=== PATIENT | male | born 1935 | race Caucasian/White ===

== ENCOUNTER 2017-04-06 13:36 | Inpatient (IN) | payer BC, MEDICARE ==
[~2017-04-06] VITALS: Ht 175.3 cm; Wt 106.0 kg
[~2017-04-06 13:36] MED LIST: AMLO10 PO; ASPI81TA82 PO; BUPR150T3 PO; CETI10 PO; DOXA1 PO; FISH100020 PO; HYDR50TA15 PO; LACT20SO4 PO; LOSA100T PO; METF500 PO; NEUR600T PO; OMNI1SUS RIGHT EYE; PERC5TAB12 PO; PROP20TA24 PO; PROZ20CA11 PO; ROSU5 PO; SAW450CA2 PO; SODI1 PO; TAB-TAB PO; TAMS.4 PO; ULTR50TA PO; XANA1TAB6 PO; ZOLP10TA3 PO; ZOVI800T13 PO; [UNRECOGNIZED DRUG - CODE] EACH EYE
[2017-04-06 13:58] VITALS: BP 189/80; PULSE 63; RESP 24; TEMP 98.8; O2SAT 90
[2017-04-06 14:15] VITALS: O2SAT 96
[2017-04-06] MEDS ORDERED: RESP: ALBUTEROL 2.5 MG/IPRATROPIUM 0.5 MG NEB (SCH) INH ONE (14:15)
--- NOTE | 2017-04-06 14:27 | PD ---
HPI Chief Complaint: Respiratory Symptoms Time Seen by Provider: 13:47 Travel History International Travel<30 days: No Contact w/Intl Traveler<30days: No Traveled to known affect area: No History of Present Illness HPI 81-year-old male with ISIDORO on CPAP at night, diabetes, status post Jo Ann-en-Y gastric bypass presents to the emergency department complaining of weakness, increased shortness of breath and chest pain for 2-3 weeks. States he is also had a dry cough. Patient states currently he does not have chest pain but when he does it is across the chest and does not radiate. Patient denies nausea or vomiting. states that he has been "sick" for 3 weeks and has had multiple rounds of antibiotics without improvement. States that he was on Tamiflu as well for the flu and his last dose was 2 days ago. Patient admits to orthopnea for approximately 1 week and increased edema to his upper extremities. Says he follows a sharepoint application developer every 6 months for a "checkup". Patient adamantly denies any cardiac history or COPD. Patient does smoke cigars "occasionally". PFSH Past Medical History Arthritis: No Asthma: Yes Autoimmune Disease: No Anxiety: Yes Depression: No Heart Rhythm Problems: No Cancer: No Cardiovascular Problems: Yes High Cholesterol: Yes Chemotherapy: No Chest Pain: No Congestive Heart Failure: No COPD: No Cerebrovascular Accident: No Diabetes: Yes Patient Takes Glucophage: No Diminished Hearing: No Endocrine: Yes Gastrointestinal Disorders: Yes (HEMORRHOIDS ) GERD: No Genitourinary: No Hypertension: Yes Immune Disorder: No Kidney Stones: No Musculoskeletal: Yes (CHRONIC BACK PAIN, R FEMUR FRACTURE DUE TO FALL,L WRIST FRACTURE ) Neurologic: Yes (NEUROPATHY, 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 ) Psychiatric: Yes Reproductive: No Respiratory: Yes Immunizations Current: No Migraines: No Radiation Therapy: No Renal Failure: No Seizures: No Sickle Cell Disease: No Sleep Apnea: Yes (CPAP) Thyroid Disease: No Ulcer: Yes Past Surgical History Abdominal Surgery: Yes (GASTRIC BYPASS) AICD: No Arteriovenous Shunt: No Cardiac Surgery: No Ear Surgery: No Endocrine Surgery: No Eye Surgery: Yes (BILATERAL CATARACTS ) Genitourinary Surgery: No Gynecologic Surgery: No Insulin Pump: No Joint Replacement: No Oral Surgery: No Pacemaker: No Thoracic Surgery: No Other Surgery: Yes Social History Alcohol Use: Yes (occassionally ) Tobacco Use: Yes (cigars ) Substance Use: No Allergies-Medications (Allergen,Severity, Reaction): Coded Allergies: *MDRO Multi-Drug Resistant Organism (Verified Adverse Reaction, Unknown, ) 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 Reported Meds & Prescriptions Reported Meds & Active Scripts Active Reported Pantoprazole (Pantoprazole Sodium) 40 Mg Tab 40 Mg PO DAILY Carafate (Sucralfate) 1 Gram Tab 1 Gm PO BID On empty stomach Xanax (Alprazolam) 1 Mg Tab 1 Mg PO BID PRN Ambien (Zolpidem Tartrate) 10 Mg Tab 10 Mg PO HS Levobunolol Opth Drops (Levobunolol HCl) 0.5% Drops 1 Drop EACH EYE BID Pred Forte Opth 1% (Prednisolone Acetate Opth 1%) 1% Susp 1 Drop RIGHT EYE DAILY Travatan Z Opth Drops (Travoprost) 0.004 % Soln 1 Drop LEFT EYE HS Aspirin Adult Low Strength (Aspirin) 81 Mg Tabdr 81 Mg PO DAILY Tramadol (Tramadol HCl) 50 Mg Tab 100 Mg PO Q4-6H PRN Amlodipine (Amlodipine Besylate) 10 Mg Tab 10 Mg PO DAILY Sodium Chloride 1 Gram Tab 1 Gm PO TID Losartan (Losartan Potassium) 100 Mg Tab 100 Mg PO DAILY Lyrica (Pregabalin) 100 Mg Cap 100 Mg PO BID Singulair (Montelukast Sodium) 10 Mg Tab 10 Mg PO DAILY Hydralazine HCl 50 Mg Tablet 100 Mg PO TID Propranolol (Propranolol HCl) 20 Mg Tab 40 Mg PO Q12HR Glimepiride 2 Mg Tab 2 Mg PO DAILY Take with breakfast or first main meal Tamsulosin (Tamsulosin HCl) 0.4 Mg Cap 0.4 Mg PO DAILY Metformin (Metformin HCl) 500 Mg Tab 500 Mg PO DAILY With a meal Crestor (Rosuvastatin Calcium) 5 Mg Tab 5 Mg PO DAILY Cardura (Doxazosin Mesylate) 4 Mg Tab 4 Mg PO DAILY Review of Systems Except as stated in HPI: all other systems reviewed are Neg Physical Exam Narrative GENERAL: WD, WN obese, in mild respiratory distress SKIN: Focused skin assessment warm/dry. HEAD: Atraumatic. Normocephalic. EYES: Pupils equal and round. No scleral icterus. No injection or drainage. ENT: No nasal bleeding or discharge. Mucous membranes pink and moist. NECK: Trachea midline. No JVD. CARDIOVASCULAR: Regular rate and rhythm. No murmur appreciated. RESPIRATORY: No accessory muscle use. diminished lower lobes, wheezing upper lobes GASTROINTESTINAL: Abdomen soft, non-tender, nondistended. Hepatic and splenic margins not palpable. MUSCULOSKELETAL: No obvious deformities. No clubbing. No cyanosis. Bilateral pedal edema, upper extremity edema NEUROLOGICAL: Awake and alert. No obvious cranial nerve deficits. Motor grossly within normal limits. Normal speech. PSYCHIATRIC: Appropriate mood and affect; insight and judgment normal. Data Data Last Documented VS Vital Signs Date Time Temp Pulse Resp B/P (MAP) Pulse Ox O2 Delivery O2 Flow Rate FiO2 04/06/17 15:56 60 24 196/85 (122) 94 2.00 04/06/17 14:15 Nasal Cannula 04/06/17 13:58 98.8 Orders Orders Complete Blood Count With Diff (04/06/17 14:00) Comprehensive Metabolic Panel (04/06/17 14:00) B-Type Natriuretic Peptide (04/06/17 14:00) Act Partial Throm Time (Ptt) (04/06/17 14:00) Prothrombin Time / Inr (Pt) (04/06/17 14:00) Magnesium (Mg) (04/06/17 14:00) Ckmb (Isoenzyme) Profile (04/06/17 14:00) Troponin I (04/06/17 14:00) Urinalysis - C+S If Indicated (04/06/17 14:00) Electrocardiogram (04/06/17 14:00) Chest, Single Ap (04/06/17 14:00) Albuterol-Ipratropium Neb (Duoneb Neb) (04/06/17 14:15) Ct Brain W/O Iv Contrast(Rout) (04/06/17 ) Acetaminophen (Tylenol) (04/06/17 14:30) Acetaminophen (Tylenol) (04/06/17 15:00) Lactic Acid (04/06/17 14:54) Potassium Chloride (Kcl) (04/06/17 15:45) Furosemide Inj (Lasix Inj) (04/06/17 16:15) Admit Order (Ed Use Only) (04/06/17 16:40) Labs Laboratory Tests Test 04/06/17 14:20 04/06/17 15:15 White Blood Count 3.7 TH/MM3 Red Blood Count 4.17 MIL/MM3 Hemoglobin 9.4 GM/DL Hematocrit 28.1 % Mean Corpuscular Volume 67.3 FL Mean Corpuscular Hemoglobin 22.5 PG Mean Corpuscular Hemoglobin Concent 33.4 % Red Cell Distribution Width 19.6 % Platelet Count 325 TH/MM3 Mean Platelet Volume 7.7 FL Neutrophils (%) (Auto) 43.9 % Lymphocytes (%) (Auto) 26.8 % Monocytes (%) (Auto) 8.3 % Eosinophils (%) (Auto) 19.9 % Basophils (%) (Auto) 1.1 % Neutrophils # (Auto) 1.6 TH/MM3 Lymphocytes # (Auto) 1.0 TH/MM3 Monocytes # (Auto) 0.3 TH/MM3 Eosinophils # (Auto) 0.7 TH/MM3 Basophils # (Auto) 0.0 TH/MM3 CBC Comment DIFF FINAL Differential Comment Prothrombin Time 10.8 SEC Prothromb Time International Ratio 1.1 RATIO Activated Partial Thromboplast Time 27.1 SEC Blood Urea Nitrogen 11 MG/DL Creatinine 0.72 MG/DL Random Glucose 83 MG/DL Total Protein 4.9 GM/DL Albumin 1.7 GM/DL Calcium Level 7.0 MG/DL Magnesium Level 1.8 MG/DL Alkaline Phosphatase 76 U/L Aspartate Amino Transf (AST/SGOT) 16 U/L Alanine Aminotransferase (ALT/SGPT) 9 U/L Total Bilirubin 0.3 MG/DL Sodium Level 136 MEQ/L Potassium Level 3.2 MEQ/L Chloride Level 105 MEQ/L Carbon Dioxide Level 22.8 MEQ/L Anion Gap 8 MEQ/L Estimat Glomerular Filtration Rate 105 ML/MIN Protein Corrected Calcium 8.2 MG/DL Total Creatine Kinase 31 U/L Troponin I 0.02 NG/ML B-Type Natriuretic Peptide 262 PG/ML Lactic Acid Level 0.9 mmol/L MDM Medical Decision Making Medical Screen Exam Complete: Yes Emergency Medical Condition: Yes Differential Diagnosis Congestive heart failure, COPD, STEMI, in STEMI, unstable angina Narrative Course 81-year-old male with ISIDORO on CPAP at night, diabetes, status post Jo Ann-en-Y gastric bypass presents to the emergency department complaining of weakness, increased shortness of breath and chest pain for 2-3 weeks. States he is also had a dry cough. Patient states currently he does not have chest pain but when he does it is across the chest and does not radiate. Patient denies nausea or vomiting. states that he has been "sick" for 3 weeks and has had multiple rounds of antibiotics without improvement. States that he was on Tamiflu as well for the flu and his last dose was 2 days ago. Patient admits to orthopnea for approximately 1 week and increased edema to his upper extremities. Says he follows a sharepoint application developer every 6 months for a "checkup". Patient adamantly denies any cardiac history or COPD. Patient does smoke cigars "occasionally". EKG shows Sinus rhythm without STEMI changes. 2 L nasal cannula applied as patient's O2 saturation remained 89-92 while resting. This increased to 96% on oxygen Head CT ordered as patient has been weak for 3 weeks and has been refractory to for multiple treatments by his home health care. Pt administered tylenol for headache. DuoNeb ordered 1 as patient has felt short of breath and he does have a smoking history. Pt says this did not reduce his symptoms. Potassium 30 mEq administered as patient's potassium is 3.2. Last Impressions Chest X-Ray 04/06/17 1400 Signed Impressions: Service Date/Time: Thursday, April 06, 2017 14:29 - CONCLUSION: Bibasilar patchiness consistent with probable pneumonia. Clinical correlation is recommended. Small right pleural effusion and tiny left pleural effusion. Donovan Chen MD Head CT 04/06/17 0000 Signed Impressions: Service Date/Time: Thursday, April 06, 2017 15:18 - CONCLUSION: 1. Mild stable cerebral atrophy. 2. Mild periventricular and subcortical white matter small vessel ischemic changes bilaterally. 3. 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 4. No acute infarct, acute hemorrhage, mass effect or extra-axial fluid collections. Donovan Chen MD Chest x-ray read concern for pneumonia but I am convinced this is a CHF picture. Lasix 80mg administered. His PCP is ALEX Villalobos and Dr. Sullivan. Patient will be admitted for acute congestive heart failure, hypokalemia, hypoxia. Thank you Dr. Arguello for taking this patient. Diagnosis Primary Impression: Congestive heart failure Qualified Codes: I50.9 - Heart failure, unspecified Additional Impression: Hypokalemia Admitting Information Admitting Physician Requests: Admit Condition: Stable Justice,Sammi PA Apr 06, 2017 14:27
[2017-04-06] MEDS ORDERED: ACETAMINOPHEN 325 MG TAB PO ONE ×2 (14:30→15:00)
[2017-04-06] MEDS ORDERED: ASPI81TA16 PO (14:45)
[2017-04-06] MEDS ORDERED: PROP20TA3 PO (14:45)
[2017-04-06] MEDS ORDERED: SODI1TAB PO (14:45)
[2017-04-06] MEDS ORDERED: TRAV0.00 LEFT EYE (14:45)
[2017-04-06] MEDS ORDERED: METF500T PO (14:45)
[2017-04-06] MEDS ORDERED: TAMS0.4C4 PO (14:45)
[2017-04-06] MEDS ORDERED: CARD4TAB2 PO (14:45)
[2017-04-06] MEDS ORDERED: LYRI100C PO (14:45)
[2017-04-06] MEDS ORDERED: MONT10TA2 PO (14:45)
[2017-04-06] MEDS ORDERED: XANA1TAB2 PO (14:45)
[2017-04-06] MEDS ORDERED: AMBI10TA PO (14:45)
[2017-04-06] MEDS ORDERED: HYDR-3800 PO (14:45)
[2017-04-06] MEDS ORDERED: TRAM50TA PO (14:45)
[2017-04-06] MEDS ORDERED: LOSA100T PO (14:45)
[2017-04-06] MEDS ORDERED: LEVO0.5S18 EACH EYE (14:45)
[2017-04-06] MEDS ORDERED: GLIM2TAB PO (14:45)
[2017-04-06] MEDS ORDERED: PRED1SUS RIGHT EYE (14:45)
[2017-04-06] MEDS ORDERED: PANT40TA3 PO (14:45)
[2017-04-06] MEDS ORDERED: AMLO10TA2 PO (14:45)
[2017-04-06] MEDS ORDERED: CARA1TAB6 PO (14:45)
[2017-04-06] MEDS ORDERED: ROSU5 PO (14:45)
--- NOTE | 2017-04-06 14:45 | RADRPT ---
EXAM DATE/TIME: 04/06/2017 14:29 [facility] COMPARISON: CHEST SINGLE AP, October 02, 2015, 16:05. INDICATIONS : Short of breath. MEDICAL HISTORY : Cardiovascular disease. Hypertension. Diabetes. SURGICAL HISTORY : None. ENCOUNTER: Initial ACUITY: 2 weeks PAIN SCORE: 0/10 LOCATION: Bilateral chest FINDINGS: Bibasilar patchiness is noted consistent with probable pneumonia. Clinical correlation is recommended . Small right pleural effusion and tiny left pleural effusion are noted. The heart is stable. CONCLUSION: Bibasilar patchiness consistent with probable pneumonia. Clinical correlation is recommended. Small r ight pleural effusion and tiny left pleural effusion. Donovan Chen MD on April 06, 2017 at 14:41 Board Certified Radiologist. This report was verified electronically.
[2017-04-06 14:51] LABS: AUTOMATED NEUTROPHIL # 1.6 TH/MM3 (1.8-7.7); BASOPHIL % 1.1 % (0.0-2.0); EOSINOPHIL # 0.7 TH/MM3 (0-0.4); EOSINOPHIL % 19.9 % (0.0-4.0); HEMATOCRIT 28.1 % (39.0-51.0); HEMOGLOBIN 9.4 GM/DL (13.0-17.0); LYMPH % 26.8 % (9.0-44.0); MEAN CELL VOLUME 67.3 FL (80.0-100.0); MEAN CORPUSCULAR HEMOGLOBIN 22.5 PG (27.0-34.0); MEAN CORPUSCULAR HGB CONC 33.4 % (32.0-36.0); MEAN PLATELET VOLUME 7.7 FL (7.0-11.0); MONO % 8.3 % (0.0-8.0); MONOCYTE # 0.3 TH/MM3 (0-0.9); NEUT % 43.9 % (16.0-70.0); PLATELET COUNT 325 TH/MM3 (150-450); RED BLOOD COUNT 4.17 MIL/MM3 (4.50-5.90); RED CELL DISTRIBUTION WIDTH 19.6 % (11.6-17.2); WHITE BLOOD COUNT 3.7 TH/MM3 (4.0-11.0)
[2017-04-06 15:14] LABS: INTERNATIONAL NORMALIZED RATIO 1.1 RATIO; PROTHROMBIN TIME - PATIENT 10.8 SEC (9.8-11.6)
[2017-04-06 15:20] LABS: ALBUMIN 1.7 GM/DL (3.4-5.0); BICARBONATE 22.8 MEQ/L (21.0-32.0); CALCIUM-PROTEIN CORRECTED 8.2 MG/DL (8.5-10.1); CREATININE 0.72 MG/DL (0.60-1.30); MAGNESIUM 1.8 MG/DL (1.5-2.5); TOTAL BILIRUBIN ADULT 0.3 MG/DL (0.2-1.0); TOTAL PROTEIN 4.9 GM/DL (6.4-8.2)
[2017-04-06 15:21] LABS: TROPONIN I 0.02 NG/ML (0.02-0.05)
--- NOTE | 2017-04-06 15:28 | RADRPT ---
EXAM DATE/TIME: 04/06/2017 15:18 [facility] COMPARISON: CT BRAIN W/O CONTRAST, October 10, 2015, 16:18. INDICATIONS : Weakness RADIATION DOSE: 46.75 CTDIvol (mGy) MEDICAL HISTORY : Cardiovascular disease. Hypertension. Diabetes SURGICAL HISTORY : None. ENCOUNTER: Initial ACUITY: 2 weeks PAIN SCALE: 3/10 LOCATION: Abdomen TECHNIQUE: Multiple contiguous axial images were obtained of the head. Using automated exposure control and adj ustment of the mA and/or kV according to patient size, radiation dose was kept as low as reasonably a chievable to obtain optimal diagnostic quality images. DICOM format image data is available electro nically for review and comparison. FINDINGS: Mild cerebral atrophy is stable. Mild periventricular and subcortical white matter small vessel ische nelida changes are noted bilaterally. There are scattered old lacunar infarcts within the bilateral basa l ganglia. There is no acute infarct, acute hemorrhage, mass effect or extra-axial fluid collections. The bone windows are unremarkable. CONCLUSION: 1. Mild stable cerebral atrophy. 2. Mild periventricular and subcortical white matter small vessel ischemic changes bilaterally. 3. 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 4. No acute infarct, acute hemorrhage, mass effect or extra-axial fluid collections. Donovan Chen MD on April 06, 2017 at 15:24 Board Certified Radiologist. This report was verified electronically.
[2017-04-06] MEDS ORDERED: POTASSIUM CHLORIDE 10 MEQ CONTROLLED RELEASE TAB PO ONE (15:45)
[2017-04-06 15:56] VITALS: BP 196/85; PULSE 60; RESP 24; O2SAT 94
--- NOTE | 2017-04-06 16:13 | PD ---
Data Data Last Documented VS Vital Signs Date Time Temp Pulse Resp B/P (MAP) Pulse Ox O2 Delivery O2 Flow Rate FiO2 04/06/17 15:56 60 24 196/85 (122) 94 2.00 04/06/17 14:15 Nasal Cannula 04/06/17 13:58 98.8 Orders Orders Complete Blood Count With Diff (04/06/17 14:00) Comprehensive Metabolic Panel (04/06/17 14:00) B-Type Natriuretic Peptide (04/06/17 14:00) Act Partial Throm Time (Ptt) (04/06/17 14:00) Prothrombin Time / Inr (Pt) (04/06/17 14:00) Magnesium (Mg) (04/06/17 14:00) Ckmb (Isoenzyme) Profile (04/06/17 14:00) Troponin I (04/06/17 14:00) Urinalysis - C+S If Indicated (04/06/17 14:00) Electrocardiogram (04/06/17 14:00) Chest, Single Ap (04/06/17 14:00) Albuterol-Ipratropium Neb (Duoneb Neb) (04/06/17 14:15) Ct Brain W/O Iv Contrast(Rout) (04/06/17 ) Acetaminophen (Tylenol) (04/06/17 14:30) Acetaminophen (Tylenol) (04/06/17 15:00) Lactic Acid (04/06/17 14:54) Potassium Chloride (Kcl) (04/06/17 15:45) Furosemide Inj (Lasix Inj) (04/06/17 16:15) Admit Order (Ed Use Only) (04/06/17 16:40) Labs Laboratory Tests Test 04/06/17 14:20 04/06/17 15:15 White Blood Count 3.7 TH/MM3 Red Blood Count 4.17 MIL/MM3 Hemoglobin 9.4 GM/DL Hematocrit 28.1 % Mean Corpuscular Volume 67.3 FL Mean Corpuscular Hemoglobin 22.5 PG Mean Corpuscular Hemoglobin Concent 33.4 % Red Cell Distribution Width 19.6 % Platelet Count 325 TH/MM3 Mean Platelet Volume 7.7 FL Neutrophils (%) (Auto) 43.9 % Lymphocytes (%) (Auto) 26.8 % Monocytes (%) (Auto) 8.3 % Eosinophils (%) (Auto) 19.9 % Basophils (%) (Auto) 1.1 % Neutrophils # (Auto) 1.6 TH/MM3 Lymphocytes # (Auto) 1.0 TH/MM3 Monocytes # (Auto) 0.3 TH/MM3 Eosinophils # (Auto) 0.7 TH/MM3 Basophils # (Auto) 0.0 TH/MM3 CBC Comment DIFF FINAL Differential Comment Prothrombin Time 10.8 SEC Prothromb Time International Ratio 1.1 RATIO Activated Partial Thromboplast Time 27.1 SEC Blood Urea Nitrogen 11 MG/DL Creatinine 0.72 MG/DL Random Glucose 83 MG/DL Total Protein 4.9 GM/DL Albumin 1.7 GM/DL Calcium Level 7.0 MG/DL Magnesium Level 1.8 MG/DL Alkaline Phosphatase 76 U/L Aspartate Amino Transf (AST/SGOT) 16 U/L Alanine Aminotransferase (ALT/SGPT) 9 U/L Total Bilirubin 0.3 MG/DL Sodium Level 136 MEQ/L Potassium Level 3.2 MEQ/L Chloride Level 105 MEQ/L Carbon Dioxide Level 22.8 MEQ/L Anion Gap 8 MEQ/L Estimat Glomerular Filtration Rate 105 ML/MIN Protein Corrected Calcium 8.2 MG/DL Total Creatine Kinase 31 U/L Troponin I 0.02 NG/ML B-Type Natriuretic Peptide 262 PG/ML Lactic Acid Level 0.9 mmol/L MDM Supervised Visit with GUTIERREZ: Yes Narrative Course I, Dr. Watson, have reviewed the advance practice practitioner's documentation and am in agreement, met with the patient face to face, made the diagnosis, and the medical decision making was done by me. *My assessment and Findings: Patient seen and examined by me in addition to Sammi. Agree with her documentation, patient appears to be congestive heart failure, will be admitted to the hospital Diagnosis Primary Impression: Congestive heart failure Qualified Codes: I50.9 - Heart failure, unspecified Additional Impression: Hypokalemia Condition: Stable Donovan Watson MD Apr 06, 2017 16:13
[2017-04-06] MEDS ORDERED: FUROSEMIDE 100 MG/10 ML VIAL IV PUSH ONE (16:15)
[2017-04-06] MEDS ORDERED: GLUCAGON 1 MG/ML VIAL OTHER PRN (16:45)
[2017-04-06] MEDS ORDERED: POTASSIUM CHLORIDE 20 MEQ CONTROLLED RELEASE TAB PO ONE (16:45)
[2017-04-06] MEDS ORDERED: SODIUM CHLORIDE 0.9% FLUSH 10 ML FLUSH IV FLUSH PRN (16:45)
[2017-04-06] MEDS ORDERED: DEXTROSE 50% IN WATER 50 ML VIAL(D50) IV PUSH PRN (16:45)
[2017-04-06] MEDS ORDERED: NALOXONE HCL 0.4 MG/ML AMP IV PUSH PRN (16:45)
[2017-04-06] MEDS: INSULIN ASPART SUPPLEMENTAL SCALE SQ SCH ×2 (17:00→21:00)
[2017-04-06 18:51] LABS: BILIRUBIN, URINE NEG (NEG); BLOOD, URINE NEG (NEG); GLUCOSE,URINE NEG (NEG); KETONE, URINE NEG (NEG); MUCUS URINE FEW /lpf (OCC); NITRITE,URINE NEG (NEG); PH, URINE 5.5 (5.0-8.5); SQUAMOUS EPITHELIAL CELL URINE <1 /hpf (0-5); URINE COLOR YELLOW (YELLW/STRAW); URINE LEUKOCYTE ESTERASE NEG (NEG)
[2017-04-06 19:46] VITALS: PULSE 60
[2017-04-06 20:00] VITALS: BP 178/66; PULSE 62; RESP 20; TEMP 98.3; O2SAT 95
[2017-04-06] MEDS ORDERED: hydrALAZINE HCL 100 MG TAB PO ONE (20:45)
[2017-04-06] MEDS: SODIUM CHLORIDE 0.9% FLUSH 10 ML FLUSH IV FLUSH SCH (21:00)
[2017-04-06] MEDS ORDERED: LATANOPROST 0.005% OPHT SOLN 2.5 ML BTL LEFT EYE SCH (21:00)
[2017-04-06] MEDS ORDERED: ZOLPIDEM TARTRATE 10 MG TAB PO SCH (21:00)
[2017-04-06] MEDS: PREGABALIN 100 MG CAP PO SCH (21:00)
[2017-04-06] MEDS ORDERED: NON-FORMULARY DRUG (Travoprost Opth Drops (Travatan Z Opth Drops) 1 DROP) LEFT EYE SCH (21:00)
[2017-04-06] MEDS: LATANOPROST 0.005% OPHT SOLN 2.5 ML BTL LEFT EYE SCH (21:00)
[2017-04-06 21:50] LABS: TROPONIN I 0.02 NG/ML (0.02-0.05)
[2017-04-06] MEDS: PROPRANOLOL HCL 20 MG TAB PO SCH (22:27)
[2017-04-06] MEDS: SUCRALFATE 1 GM TAB PO SCH (22:28)
[2017-04-06] MEDS: LEVOBUNOLOL HCL 0.5% OPHT SOLN 5 ML BTL EACH EYE SCH (22:29)
[2017-04-06] MEDS: ACETAMINOPHEN 325 MG TAB PO PRN (22:45)
--- NOTE | 2017-04-06 23:32 | HHI.HP ---
HPI Service [facility] Primary Care Physician Unknown Admission Diagnosis new onset CHF, hypokalemia Diagnoses: (1) Bilateral pneumonia (2) Hypokalemia Chief Complaint: shortness of breath Travel History International Travel<30 Days: No Contact w/Intl Traveler <30 Da: No Traveled to Known Affected Are: No History of Present Illness Mr. Montaño is a 81-year-old male diabetes mellitus, ISIDORO on CPAP at night, status post Jo Ann-en-Y gastric bypass who presented to the emergency room complaining of weakness, shortness of breath, cough, and chest pain for 2-3 weeks. His reported to the ED provider that he had been on multiple rounds of antibiotics over the past few weeks without improvement for his recent illness. He was admitted for new onset CHF and hypokalemia. He is seen in his hospital room late at night and is very lethargic during the visit. He answers a few questions but repetitively falls asleep throughout the visit. He denies pain and reports improvement in shortness of breath. He states he follows with Dr. Alvares (cardiology) but cannot tell me what for. He reports using CPAP for ISIDORO at night but does not know what his settings are. He is noted to breath extremely shallow while sleeping during my visit. He reports a symptom duration of 3 weeks. Chest x-ray is personally reviewed by me and with Dr. Wilson (supervising physician) and appears more consistent bilateral pneumonia; possible new onset of mild CHF as well. Review of Systems Except as stated in HPI: all other systems reviewed are Neg Past Family Social History Past Medical History Diabetes Mellitus Neuropathy Subdural Hematoma Hyperlipidemia Hypertension Asthma ISIDORO on home CPAP BPH Chronic Back Pain . Past Surgical History Gastric Bypass Vasectomy Colonoscopy Left wrist repair Circumcision Right ORIF femur Right Knee Repair . Reported Medications Reported Meds & Active Scripts Active Reported Pantoprazole (Pantoprazole Sodium) 40 Mg Tab 40 Mg PO DAILY Carafate (Sucralfate) 1 Gram Tab 1 Gm PO BID On empty stomach Xanax (Alprazolam) 1 Mg Tab 1 Mg PO BID PRN Ambien (Zolpidem Tartrate) 10 Mg Tab 10 Mg PO HS Levobunolol Opth Drops (Levobunolol HCl) 0.5% Drops 1 Drop EACH EYE BID Pred Forte Opth 1% (Prednisolone Acetate Opth 1%) 1% Susp 1 Drop RIGHT EYE DAILY Travatan Z Opth Drops (Travoprost) 0.004 % Soln 1 Drop LEFT EYE HS Aspirin Adult Low Strength (Aspirin) 81 Mg Tabdr 81 Mg PO DAILY Tramadol (Tramadol HCl) 50 Mg Tab 100 Mg PO Q4-6H PRN Amlodipine (Amlodipine Besylate) 10 Mg Tab 10 Mg PO DAILY Sodium Chloride 1 Gram Tab 1 Gm PO TID Losartan (Losartan Potassium) 100 Mg Tab 100 Mg PO DAILY Lyrica (Pregabalin) 100 Mg Cap 100 Mg PO BID Singulair (Montelukast Sodium) 10 Mg Tab 10 Mg PO DAILY Hydralazine HCl 50 Mg Tablet 100 Mg PO TID Propranolol (Propranolol HCl) 20 Mg Tab 40 Mg PO Q12HR Glimepiride 2 Mg Tab 2 Mg PO DAILY Take with breakfast or first main meal Tamsulosin (Tamsulosin HCl) 0.4 Mg Cap 0.4 Mg PO DAILY Metformin (Metformin HCl) 500 Mg Tab 500 Mg PO DAILY With a meal Crestor (Rosuvastatin Calcium) 5 Mg Tab 5 Mg PO DAILY Cardura (Doxazosin Mesylate) 4 Mg Tab 4 Mg PO DAILY . 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 Social History unable to obtain due to patient lethargy . Physical Exam Vital Signs Vital Signs Date Time Temp Pulse Resp B/P (MAP) Pulse Ox O2 Delivery O2 Flow Rate FiO2 04/06/17 20:00 98.3 62 20 178/66 (103) 95 04/06/17 18:19 (122) Nasal Cannula 2.00 04/06/17 15:56 60 24 196/85 (122) 94 2.00 04/06/17 14:15 96 Nasal Cannula 2.00 04/06/17 14:01 62 24 94 Nasal Cannula 2.00 04/06/17 13:58 98.8 63 24 189/80 (116) 90 Physical Exam GENERAL: Elderly male patient; lethargic with some memory impairment noted. Patient in no apparent distress. INTEGUMENTARY: Warm and dry. HEAD: Normocephalic. EYES: No scleral icterus. No injection or drainage. NECK: Supple, trachea midline. No JVD. CARDIOVASCULAR: Regular rate and rhythm without murmurs, gallops, or rubs. 1+ peripheral edema below the knees. RESPIRATORY: Breath sounds diminished at bilateral bases, few scattered crackles at bases. No accessory muscle use. GASTROINTESTINAL: Abdomen soft, non-tender, nondistended. MUSCULOSKELETAL: No cyanosis, no clubbing. Generalized weakness noted. NEUROLOGICAL: Lethargic. Non-focal. . Laboratory Laboratory Tests Test 04/06/17 14:20 04/06/17 15:15 04/06/17 18:00 04/06/17 20:31 White Blood Count 3.7 Red Blood Count 4.17 Hemoglobin 9.4 Hematocrit 28.1 Mean Corpuscular Volume 67.3 Mean Corpuscular Hemoglobin 22.5 Mean Corpuscular Hemoglobin Concent 33.4 Red Cell Distribution Width 19.6 Platelet Count 325 Mean Platelet Volume 7.7 Neutrophils (%) (Auto) 43.9 Lymphocytes (%) (Auto) 26.8 Monocytes (%) (Auto) 8.3 Eosinophils (%) (Auto) 19.9 Basophils (%) (Auto) 1.1 Neutrophils # (Auto) 1.6 Lymphocytes # (Auto) 1.0 Monocytes # (Auto) 0.3 Eosinophils # (Auto) 0.7 Basophils # (Auto) 0.0 CBC Comment DIFF FINAL Differential Comment Prothrombin Time 10.8 Prothromb Time International Ratio 1.1 Activated Partial Thromboplast Time 27.1 Blood Urea Nitrogen 11 Creatinine 0.72 Random Glucose 83 Total Protein 4.9 Albumin 1.7 Calcium Level 7.0 Magnesium Level 1.8 Alkaline Phosphatase 76 Aspartate Amino Transf (AST/SGOT) 16 Alanine Aminotransferase (ALT/SGPT) 9 Total Bilirubin 0.3 Sodium Level 136 Potassium Level 3.2 Chloride Level 105 Carbon Dioxide Level 22.8 Anion Gap 8 Estimat Glomerular Filtration Rate 105 Protein Corrected Calcium 8.2 Total Creatine Kinase 31 33 Troponin I 0.02 0.02 B-Type Natriuretic Peptide 262 Lactic Acid Level 0.9 Urine Color YELLOW Urine Turbidity CLEAR Urine pH 5.5 Urine Specific Pierson 1.009 Urine Protein 30 Urine Glucose (UA) NEG Urine Ketones NEG Urine Occult Blood NEG Urine Nitrite NEG Urine Bilirubin NEG Urine Urobilinogen LESS THAN 2.0 Urine Leukocyte Esterase NEG Urine RBC 1 Urine WBC 1 Urine Squamous Epithelial Cells <1 Urine Mucus FEW Microscopic Urinalysis Comment CULT NOT INDICATED Result Diagram: 04/06/17 1420 04/06/17 1420 Imaging Last Impressions Chest X-Ray 04/06/17 1400 Signed Impressions: Service Date/Time: Thursday, April 06, 2017 14:29 - CONCLUSION: Bibasilar patchiness consistent with probable pneumonia. Clinical correlation is recommended. Small right pleural effusion and tiny left pleural effusion. Donovan Chen MD Head CT 04/06/17 0000 Signed Impressions: Service Date/Time: Thursday, April 06, 2017 15:18 - CONCLUSION: 1. Mild stable cerebral atrophy. 2. Mild periventricular and subcortical white matter small vessel ischemic changes bilaterally. 3. 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 4. No acute infarct, acute hemorrhage, mass effect or extra-axial fluid collections. Donovan Chen MD . Caprini VTE Risk Assessment Caprini VTE Risk Assessment: Mod/High Risk (score >= 2) Caprini Risk Assessment Model Point Value = 1 Point Value = 2 Point Value = 3 Point Value = 5 Age 41-60 Minor surgery BMI > 25 kg/m2 Swollen legs Varicose veins or History of unexplained or recurrent spontaneous Oral contraceptives or hormone replacement Sepsis (< 1 month) Serious lung disease, including pneumonia (< 1 month) Abnormal pulmonary function Acute myocardial infarction Congestive heart failure (< 1 month) History of inflammatory bowel disease Medical patient at bed rest Age 61-74 Arthroscopic surgery Major open surgery (> 45 min) Laparoscopic surgery (> 45 min) Malignancy Confined to bed (> 72 hours) Immobilizing plaster cast Central venous access Age >= 75 History of VTE Family history of VTE Factor V Leiden Prothrombin [id number] Lupus anticoagulant Anticardiolipin antibodies Elevated serum homocysteine Heparin-induced thrombocytopenia Other congenital or acquired thrombophilia Stroke (< 1 month) Elective arthroplasty Hip, pelvis, or leg fracture Acute spinal cord injury (< 1 month) Prophylaxis Regimen Total Risk Factor Score Risk Level Prophylaxis Regimen 0-1 Low Early ambulation 2 Moderate Order ONE of the following: *Sequential Compression Device (SCD) *Heparin 5000 units SQ BID 3-4 Higher Order ONE of the following medications: *Heparin 5000 units SQ TID *Enoxaparin/Lovenox 40 mg SQ daily (WT < 150 kg, CrCl > 30 mL/min) *Enoxaparin/Lovenox 30 mg SQ daily (WT < 150 kg, CrCl > 10-29 mL/min) *Enoxaparin/Lovenox 30 mg SQ BID (WT < 150 kg, CrCl > 30 mL/min) AND/OR *Sequential Compression Device (SCD) 5 or more Highest Order ONE of the following medications: *Heparin 5000 units SQ TID (Preferred with Epidurals) *Enoxaparin/Lovenox 40 mg SQ daily (WT < 150 kg, CrCl > 30 mL/min) *Enoxaparin/Lovenox 30 mg SQ daily (WT < 150 kg, CrCl > 10-29 mL/min) *Enoxaparin/Lovenox 30 mg SQ BID (WT < 150 kg, CrCl > 30 mL/min) AND *Sequential Compression Device (SCD) Assessment and Plan Problem List: (1) Bilateral pneumonia ICD Code: J18.9 - Pneumonia, unspecified organism Status: Acute (2) Hypokalemia ICD Code: E87.6 - Hypokalemia Status: Acute (3) Congestive heart failure ICD Code: I50.9 - Heart failure, unspecified Status: Acute (4) Atypical chest pain ICD Code: R07.89 - Other chest pain (5) Diabetes mellitus ICD Code: E11.9 - Type 2 diabetes mellitus without complications Status: Chronic Assessment and Plan Mr. Montaño is a 81-year-old male diabetes mellitus, ISIDORO on CPAP at night, status post Jo Ann-en-Y gastric bypass who presented to the emergency room complaining of weakness, shortness of breath, cough, and chest pain for 2-3 weeks. His reported to the ED provider that he had been on multiple rounds of antibiotics over the past few weeks without improvement for his recent illness. He was admitted for new onset CHF and hypokalemia. Review of chest x-ray appears most consistent with bilateral pneumonia with failed outpatient therapy ; possible new onset of mild CHF as well. Bilateral pneumonia with failed outpatient treatment - Antibiotics: IV Zosyn and Vancomycin - Albuterol q6h ATC and q2h PRN sob/wheezing - Consult pulmonology - appreciate assistance Atypical Chest pain - serial EKGs and cardiac enzymes to r/o ACS - continuous cardiac telemetry to monitor for arrhythmias - pain free at the time of my visit - monitor I and Os - Heart healthy diet CHF, possible new onset - small bilateral pleural effusions on CXR, BNP 262 - Diuresed in ED with IV Lasix - Lasix 20 mg IV BID with potassium supplementation - check echocardiogram to assess cardiac structure and function - consult Dr. Alvares if needed Type 2 DM - holding home oral medications for now - Accuchecks AC and HS with low dose NovoLog sliding scale coverage - monitor trends in blood glucose readings and adjust treatment accordingly - hypoglycemia treatment/guidelines ordered Hypokalemia - K+ 3.2 on admission - Potassium replaced; will follow up on am BMP results and will replace further as indicated ISIDORO - CPAP ordered DVT prophylaxis - Lovenox 40 mg subq q24h Discussed Condition With Patient and RN . Problem Qualifiers (1) Congestive heart failure: Qualified Codes: I50.9 - Heart failure, unspecified Hilary Lomax Apr 06, 2017 23:32
[2017-04-06 23:44] VITALS: PULSE 56
[2017-04-07] VITALS (9 sets, daily range): BP systolic 157–197; BP diastolic 63–83; PULSE 56–73; RESP 18–20; TEMP 97.1–98.5; O2SAT 93–97
[2017-04-07] MEDS ORDERED: Vancomycin Consult Pharmacy 1 EA OTHER SCH (03:30)
[2017-04-07 03:44] LABS: AUTOMATED NEUTROPHIL # 1.4 TH/MM3 (1.8-7.7); BASOPHIL # 0.1 TH/MM3 (0-0.2); BASOPHIL % 2.6 % (0.0-2.0); EOSINOPHIL # 0.9 TH/MM3 (0-0.4); EOSINOPHIL % 25.1 % (0.0-4.0); HEMATOCRIT 29.5 % (39.0-51.0); HEMOGLOBIN 9.9 GM/DL (13.0-17.0); LYMPH % 25.4 % (9.0-44.0); LYMPHOCYTE # 0.9 TH/MM3 (1.0-4.8); MEAN CELL VOLUME 67.6 FL (80.0-100.0); MEAN CORPUSCULAR HEMOGLOBIN 22.6 PG (27.0-34.0); MEAN CORPUSCULAR HGB CONC 33.5 % (32.0-36.0); MEAN PLATELET VOLUME 7.2 FL (7.0-11.0); MONOCYTE # 0.3 TH/MM3 (0-0.9); NEUT % 38.9 % (16.0-70.0); PLATELET COUNT 336 TH/MM3 (150-450); RED BLOOD COUNT 4.36 MIL/MM3 (4.50-5.90); RED CELL DISTRIBUTION WIDTH 19.7 % (11.6-17.2); WHITE BLOOD COUNT 3.6 TH/MM3 (4.0-11.0)
[2017-04-07] MEDS ORDERED: RESP: ALBUTEROL 2.5 MG/IPRATROPIUM 0.5 MG NEB (PRN) NEB (03:45)
[2017-04-07 04:14] LABS: TROPONIN I LESS THAN 0.02 NG/ML (0.02-0.05)
[2017-04-07 04:17] LABS: BICARBONATE 29.1 MEQ/L (21.0-32.0); CALCIUM 7.9 MG/DL (8.5-10.1); CREATININE 0.87 MG/DL (0.60-1.30)
[2017-04-07] MEDS ORDERED: VANCOMYCIN INJ 2,000 MG in SODIUM CHLORID 0.9% 500 ML INJ 500 ML IV ONE (04:30)
[2017-04-07] MEDS ORDERED: POTASSIUM CHLORIDE 20 MEQ CONTROLLED RELEASE TAB PO ONE (05:00)
[2017-04-07] MEDS ORDERED: traMADol HCL 50 MG TAB PO PRN (06:15)
[2017-04-07] MEDS ORDERED: ALPRAZolam 1 MG TAB PO PRN (06:15)
[2017-04-07] MEDS: RESP: ALBUTEROL 2.5 MG/IPRATROPIUM 0.5 MG NEB (SCH) NEB ×4 (07:53→20:49)
[2017-04-07] MEDS: INSULIN ASPART SUPPLEMENTAL SCALE SQ SCH ×4 (08:00→21:00)
[2017-04-07] MEDS ORDERED: POTASSIUM CHLORIDE 10 MEQ CAP PO SCH ×2 (09:00→21:00)
[2017-04-07] MEDS ORDERED: FUROSEMIDE 20 MG/2 ML VIAL IV PUSH SCH (09:00)
[2017-04-07] MEDS ORDERED: FUROSEMIDE 40 MG/4 ML VIAL IV PUSH SCH ×2 (09:00→18:00)
[2017-04-07] MEDS ORDERED: NON-FORMULARY DRUG (Rosuvastatin (Crestor) 5 MG) PO SCH (09:00)
[2017-04-07] MEDS: PIPERACIL-TAZO 4.5 GM PREMIX 100 ML IV SCH ×3 (09:52→21:16)
[2017-04-07] MEDS: LEVOBUNOLOL HCL 0.5% OPHT SOLN 5 ML BTL EACH EYE SCH ×2 (09:52→21:24)
[2017-04-07] MEDS: hydrALAZINE HCL 100 MG TAB PO SCH ×3 (09:53→16:18)
[2017-04-07] MEDS: SODIUM CHLORIDE 0.9% FLUSH 10 ML FLUSH IV FLUSH SCH ×2 (09:53→21:17)
[2017-04-07] MEDS: SUCRALFATE 1 GM TAB PO SCH ×2 (09:54→21:15)
[2017-04-07] MEDS: PROPRANOLOL HCL 20 MG TAB PO SCH ×2 (09:54→21:15)
[2017-04-07] MEDS: LOSARTAN 50 MG TAB PO SCH (09:54)
[2017-04-07] MEDS: TAMSULOSIN HCL 0.4 MG CAP PO SCH (09:54)
[2017-04-07] MEDS: DOXAZOSIN MESYLATE 4 MG TAB PO SCH (09:54)
[2017-04-07] MEDS: ASPIRIN EC 81 MG TABEC PO SCH (09:54)
[2017-04-07] MEDS: PREGABALIN 100 MG CAP PO SCH ×2 (09:55→21:14)
[2017-04-07] MEDS: ATORVASTATIN 10 MG TAB PO SCH (09:55)
[2017-04-07] MEDS: prednisoLONE ACETATE 1% OPHT SUSP 5 ML BTL RIGHT EYE SCH (09:56)
[2017-04-07] MEDS: MONTELUKAST SODIUM 10 MG TAB PO SCH (09:56)
[2017-04-07] MEDS: SODIUM CHLORIDE 1 GRAM TAB PO SCH ×3 (09:56→16:18)
[2017-04-07] MEDS: ENOXAPARIN SODIUM 40 MG/0.4 ML SYRINGE SQ SCH (09:56)
[2017-04-07] MEDS: PANTOPRAZOLE SOD 40 MG DELAYED RELEASE TAB PO SCH (09:56)
[2017-04-07] MEDS: ACETAMINOPHEN 325 MG TAB PO PRN (12:59)
--- NOTE | 2017-04-07 13:11 | HHI.PR ---
Subjective Remarks Follow-up heart failure and pneumonia. Improving shortness of breath currently on nasal cannula. Complains of dry cough and intermittent chills. He has anasarca denies history of heart failure. Discussed with nursing Objective Vitals Vital Signs Date Time Temp Pulse Resp B/P (MAP) Pulse Ox O2 Delivery O2 Flow Rate FiO2 04/07/17 12:00 97.8 63 20 164/64 (97) 94 04/07/17 11:50 20 04/07/17 08:00 98.3 73 20 197/75 (115) 93 04/07/17 07:55 Nasal Cannula 3.00 04/07/17 04:40 97.1 64 18 96 169/83 (111) 04/07/17 04:00 62 04/07/17 02:34 Nasal Cannula 3.00 04/07/17 01:20 94 40 04/06/17 23:44 56 04/06/17 20:10 Nasal Cannula 3.00 04/06/17 20:10 Nasal Cannula 3.00 04/06/17 20:00 98.3 62 20 178/66 (103) 95 04/06/17 19:46 60 04/06/17 18:19 (122) Nasal Cannula 2.00 04/06/17 15:56 60 24 196/85 (122) 94 2.00 04/06/17 14:15 96 Nasal Cannula 2.00 04/06/17 14:01 62 24 94 Nasal Cannula 2.00 04/06/17 13:58 98.8 63 24 189/80 (116) 90 I/O 04/06/17 04/06/17 04/06/17 04/07/17 04/07/17 04/07/17 07:00 15:00 23:00 07:00 15:00 23:00 Intake Total 750 ml 100 ml Output Total 600 ml Balance 150 ml 100 ml Intake Oral 750 ml IV Total 100 ml Output Urine Total 600 ml # Voids 3 # Bowel Movements 0 Result Diagram: 04/07/17 0328 04/07/17 0328 Imaging Last Impressions Chest X-Ray 04/06/17 1400 Signed Impressions: Service Date/Time: Thursday, April 06, 2017 14:29 - CONCLUSION: Bibasilar patchiness consistent with probable pneumonia. Clinical correlation is recommended. Small right pleural effusion and tiny left pleural effusion. Donovan Chen MD Head CT 04/06/17 0000 Signed Impressions: Service Date/Time: Thursday, April 06, 2017 15:18 - CONCLUSION: 1. Mild stable cerebral atrophy. 2. Mild periventricular and subcortical white matter small vessel ischemic changes bilaterally. 3. 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 4. No acute infarct, acute hemorrhage, mass effect or extra-axial fluid collections. Donovan Chen MD Objective Remarks GENERAL: Well-developed, well-nourished in no distress INTEGUMENTARY: Warm and dry. NECK: Supple, trachea midline. Has JVD. CARDIOVASCULAR: Regular rate and rhythm without murmurs, gallops, or rubs. RESPIRATORY: Breath sounds diminished at bilateral basesno accessory muscle use. GASTROINTESTINAL: Abdomen soft, non-tender, nondistended. MUSCULOSKELETAL: No cyanosis, no clubbing. Generalized weakness noted. Anasarca NEUROLOGICAL: Alert and oriented. Non-focal. Procedures none A/P Problem List: (1) Bilateral pneumonia ICD Code: J18.9 - Pneumonia, unspecified organism Status: Acute (2) Hypokalemia ICD Code: E87.6 - Hypokalemia Status: Acute (3) Congestive heart failure ICD Code: I50.9 - Heart failure, unspecified Status: Acute (4) Atypical chest pain ICD Code: R07.89 - Other chest pain (5) Diabetes mellitus ICD Code: E11.9 - Type 2 diabetes mellitus without complications Status: Chronic Assessment and Plan Mr. Montaño is a 81-year-old male diabetes mellitus, ISIDORO on CPAP at night, status post Jo Ann-en-Y gastric bypass who presented to the emergency room complaining of weakness, shortness of breath, cough, and chest pain for 2-3 weeks. His reported to the ED provider that he had been on multiple rounds of antibiotics over the past few weeks without improvement for his recent illness. He was admitted for new onset CHF and hypokalemia. Review of chest x-ray appears most consistent with bilateral pneumonia with failed outpatient therapy ; possible new onset of mild CHF as well. Bilateral pneumonia with failed outpatient treatment. Each sepsis criteria. Check pro-calcitonin in light of leukopenia this might be viral - Antibiotics: IV Zosyn and Vancomycin - Albuterol q6h ATC and q2h PRN sob/wheezing - Consult pulmonology - appreciate assistance Atypical Chest pain - Patient ruled out for MD with cardiac enzymes - continuous cardiac telemetry to monitor for arrhythmias - pain free at the time of my visit - monitor I and Os - Heart healthy diet CHF, new onset with anasarca - small bilateral pleural effusions on CXR, BNP 262 - Diuresed in ED with IV Lasix -Increase Lasix to 40 mg IV BID with potassium supplementation - check echocardiogram to assess cardiac structure and function - consult Dr. Alvares if needed Type 2 DM - holding home oral medications for now - Accuchecks AC and HS with low dose NovoLog sliding scale coverage - monitor trends in blood glucose readings and adjust treatment accordingly - hypoglycemia treatment/guidelines ordered Hypokalemia - K+ 3.2 on admission - Potassium replaced; will follow up on am BMP results and will replace further as indicated ISIDORO - CPAP ordered DVT prophylaxis - Lovenox 40 mg subq q24h Problem Qualifiers (1) Congestive heart failure: Qualified Codes: I50.9 - Heart failure, unspecified Rudolph Beasley MD Apr 07, 2017 13:11
--- NOTE | 2017-04-07 18:08 | ECHRPT ---
Indication: CHF CONCLUSIONS Normal left ventricular size. Wall thickness is measured at the upper limits of normal. The left ventricular systolic function is low normal with an estimated ejection fraction in the rang e of 50- 55%. There is trace tricuspid valve regurgitation. The estimated pulmonary arterial pressure is 17 mmHg. Trivial pulmonary valve regurgitation. There is a trivial pericardial effusion present. BP: 169 / 83 HR: 64 Rhythm: MEASUREMENTS (Male / Female) Normal Values Technical Quality: 2D ECHO LV Diastolic Diameter PLAX 5.0 cm 4.2 - 5.9 / 3.9 - 5.3 cm LV Systolic Diameter PLAX 3.8 cm IVS Diastolic Thickness 1.3 cm 0.6 - 1.0 / 0.6 - 0.9 cm LVPW Diastolic Thickness 0.9 cm 0.6 - 1.0 / 0.6 - 0.9 cm LV Relative Wall Thickness 0.4 RV Internal Dim ED PLAX 2.2 cm LA Systolic Diameter LX 3.8 cm 3.0 - 4.0 / 2.7 - 3.8 cm M-MODE Aortic Root Diameter MM 3.4 cm AV Cusp Separation MM 2.1 cm DOPPLER Mitral E Point Velocity 69.1 cm/s Mitral A Point Velocity 92.3 cm/s Mitral E to A Ratio 0.7 TR Peak Velocity 132.0 cm/s TR Peak Gradient 7.0 mmHg FINDINGS LEFT VENTRICLE Normal left ventricular size. Wall thickness is measured at the upper limits of normal. The left ventricular systolic function is low normal with an estimated ejection fraction in the rang e of 50- 55%. RIGHT VENTRICLE Normal right ventricular size and systolic function. LEFT ATRIUM The left atrial size is normal. RIGHT ATRIUM The right atrial size is normal. ATRIAL SEPTUM Normal atrial septal thickness without atrial level shunting by limited color doppler interrogation. AORTA The aortic root and proximal ascending aorta are normal in size on limited imaging. MITRAL VALVE Structurally normal mitral valve. No mitral valve stenosis or regurgitation. AORTIC VALVE Trileaflet aortic valve. No aortic valve stenosis or regurgitation. TRICUSPID VALVE There is trace tricuspid valve regurgitation. The estimated pulmonary arterial pressure is 17 mmHg. PULMONARY VALVE Trivial pulmonary valve regurgitation. VESSELS The inferior vena cava is normal in size. PERICARDIUM There is a trivial pericardial effusion present. Filiberto Ma MD, FACC (Electronically Signed) Final Date:07 April 2017 18:07
--- NOTE | 2017-04-07 18:16 | PD.CONS ---
History of Present Illness Service Pulmonology Consult Requested By Reason for Consult Pneumonia Primary Care Physician Unknown Diagnoses: History of Present Illness The patient is a pleasant 81-year-old gentleman who came to the hospital because of shortness of breath and coughing. He was started on Zosyn and vancomycin after he was suspected to have pneumonia. Also he was diagnosed with congestive heart failure and is currently on diuretics. Today he is feeling better. Denies any significant coughing or chest pain or shortness of breath. He is wondering whether he can go home in a day or 2. Past medical history, social history, allergies, medications, family history all reviewed in details. 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 Physical Exam Vital Signs Vital Signs Date Time Temp Pulse Resp B/P (MAP) Pulse Ox O2 Delivery O2 Flow Rate FiO2 04/07/17 16:00 67 04/07/17 15:10 94 Nasal Cannula 3.00 04/07/17 13:44 18 04/07/17 12:00 64 04/07/17 12:00 97.8 63 20 164/64 (97) 94 04/07/17 11:50 20 04/07/17 08:00 98.3 73 20 197/75 (115) 93 04/07/17 08:00 68 04/07/17 07:55 Nasal Cannula 3.00 04/07/17 04:40 97.1 64 18 96 169/83 (111) 04/07/17 04:00 62 04/07/17 02:34 Nasal Cannula 3.00 04/07/17 01:20 94 40 04/06/17 23:44 56 04/06/17 20:10 Nasal Cannula 3.00 04/06/17 20:10 Nasal Cannula 3.00 04/06/17 20:00 98.3 62 20 178/66 (103) 95 04/06/17 19:46 60 04/06/17 18:19 (122) Nasal Cannula 2.00 Physical Exam Physical exam: General appearance: no acute distress Head and neck examination: atraumatic normocephalic Neck: supple trachea midline Lungs: Mild bilateral carotid Heart: normal S1-S2 Abdomen: soft nontender positive bowel sounds Extremities: Positive for significant edema no cyanosis Neurological examination: nonfocal moves all extremities awake oriented Skin: no rashes seen Laboratory Laboratory Tests Test 04/06/17 20:31 04/07/17 03:20 04/07/17 03:28 04/07/17 06:44 Total Creatine Kinase 33 20 Troponin I 0.02 LESS THAN 0.02 Magnesium Level 1.9 White Blood Count 3.6 Red Blood Count 4.36 Hemoglobin 9.9 Hematocrit 29.5 Mean Corpuscular Volume 67.6 Mean Corpuscular Hemoglobin 22.6 Mean Corpuscular Hemoglobin Concent 33.5 Red Cell Distribution Width 19.7 Platelet Count 336 Mean Platelet Volume 7.2 Neutrophils (%) (Auto) 38.9 Lymphocytes (%) (Auto) 25.4 Monocytes (%) (Auto) 8.0 Eosinophils (%) (Auto) 25.1 Basophils (%) (Auto) 2.6 Neutrophils # (Auto) 1.4 Lymphocytes # (Auto) 0.9 Monocytes # (Auto) 0.3 Eosinophils # (Auto) 0.9 Basophils # (Auto) 0.1 CBC Comment DIFF FINAL Differential Comment Blood Urea Nitrogen 11 Creatinine 0.87 Random Glucose 61 Calcium Level 7.9 Sodium Level 136 Potassium Level 3.4 Chloride Level 102 Carbon Dioxide Level 29.1 Anion Gap 5 Estimat Glomerular Filtration Rate 85 Blood Gas Puncture Site RT RADIAL Blood Gas Patient Temperature 98.6 Blood Gas HCO3 27 Blood Gas Base Excess 2.8 Blood Gas Oxygen Saturation 93 Arterial Blood pH 7.44 Arterial Blood Partial Pressure CO2 40 Arterial Blood Partial Pressure O2 84 Arterial Blood Oxygen Content 12.6 Arterial Blood Carboxyhemoglobin 1.1 Arterial Blood Methemoglobin 1.4 Blood Gas Hemoglobin 9.6 Oxygen Delivery Device NASAL CANNULA Blood Gas Liter Flow 3 Result Diagram: 04/07/17 0328 04/07/17 0328 Assessment and Plan Assessment and Plan Pneumonia multilobar CHF with exacerbation hypoxemia Obstructive sleep apnea deconditioning The patient is already improving and doing better. I agree with the choice of antibiotics with Zosyn and vancomycin. I would recommend to check a pro calcitonin level. No I recommend to follow-up on the cultures. Patient will need to be optimized from a cardiac status. Number he will need to have a follow-up x-ray in 4-6 weeks. He will need to follow-up with outpatient pulmonology for the follow-up on his x -ray as well as the management of his obstructive sleep apnea. Take you for this consultation we will continue to follow up with you Praveen Arango MD Apr 07, 2017 18:15
[2017-04-07] MEDS: LATANOPROST 0.005% OPHT SOLN 2.5 ML BTL LEFT EYE SCH (21:00)
[2017-04-07] MEDS: ZOLPIDEM TARTRATE 10 MG TAB PO PRN (21:15)
[2017-04-08] VITALS (9 sets, daily range): BP systolic 150–194; BP diastolic 58–81; PULSE 63–77; RESP 18–20; TEMP 97.7–98.8; O2SAT 92–94
[2017-04-08] MEDS: PIPERACIL-TAZO 4.5 GM PREMIX 100 ML IV SCH (03:46)
[2017-04-08] MEDS: RESP: ALBUTEROL 2.5 MG/IPRATROPIUM 0.5 MG NEB (SCH) NEB ×4 (03:47→21:11)
[2017-04-08] MEDS ORDERED: VANCOMYCIN INJ 2,000 MG in SODIUM CHLORID 0.9% 500 ML INJ 500 ML IV SCH (04:00)
[2017-04-08] MEDS: ACETAMINOPHEN 325 MG TAB PO PRN ×2 (07:15→21:54)
[2017-04-08 07:49] LABS: AUTOMATED NEUTROPHIL # 1.4 TH/MM3 (1.8-7.7); BASOPHIL # 0.1 TH/MM3 (0-0.2); EOSINOPHIL # 0.9 TH/MM3 (0-0.4); EOSINOPHIL % 23.8 % (0.0-4.0); HEMATOCRIT 27.2 % (39.0-51.0); HEMOGLOBIN 8.9 GM/DL (13.0-17.0); LYMPH % 26.9 % (9.0-44.0); MEAN CELL VOLUME 67.2 FL (80.0-100.0); MEAN CORPUSCULAR HEMOGLOBIN 21.8 PG (27.0-34.0); MEAN CORPUSCULAR HGB CONC 32.5 % (32.0-36.0); MEAN PLATELET VOLUME 7.6 FL (7.0-11.0); MONOCYTE # 0.3 TH/MM3 (0-0.9); NEUT % 39.3 % (16.0-70.0); PLATELET COUNT 319 TH/MM3 (150-450); RED BLOOD COUNT 4.05 MIL/MM3 (4.50-5.90); RED CELL DISTRIBUTION WIDTH 19.8 % (11.6-17.2); WHITE BLOOD COUNT 3.7 TH/MM3 (4.0-11.0)
[2017-04-08] MEDS: INSULIN ASPART SUPPLEMENTAL SCALE SQ SCH ×4 (08:00→21:00)
[2017-04-08 08:10] LABS: BICARBONATE 30.3 MEQ/L (21.0-32.0); CREATININE 0.92 MG/DL (0.60-1.30); MAGNESIUM 1.9 MG/DL (1.5-2.5)
--- NOTE | 2017-04-08 08:29 | EKG ---
Date Performed: 04/06/2017 Time Performed: 14:12:00 PTAGE: 81 years EKG: Sinus rhythm WITH OCCASIONAL SUPRAVENTRICULAR PREMATURE COMPLEXES BORDERLINE ECG Compared to PREVIOUS TRACING , no significant change. PREVIOUS TRACIN02/20/2015 00.54 DOCTOR: Paul Cantor Interpretating Date/Time 04/08/2017 08:27:43
--- NOTE | 2017-04-08 08:29 | EKG ---
Date Performed: 04/07/2017 Time Performed: 03:09:50 PTAGE: 81 years EKG: Sinus rhythm Poor R wave progression - probable normal variant Low QRS voltages in limb leads Nonspecific ST dickey ges Borderline ECG Since PREVIOUS TRACING , no significant change noted PREVIOUS TRACIN04/06/2017 20.40 DOCTOR: Paul Cantor Interpretating Date/Time 04/08/2017 08:28:35
--- NOTE | 2017-04-08 08:29 | EKG ---
Date Performed: 04/06/2017 Time Performed: 20:40:56 PTAGE: 81 years EKG: Sinus rhythm MINIMAL ST DEPRESSION BORDERLINE ECG Compared to PREVIOUS TRACING , nonspecific ST changes are slightly more prominent. PREVIOUS TRACIN04/06/2017 14.12 DOCTOR: Paul Cantor Interpretating Date/Time 04/08/2017 08:28:04
[2017-04-08] MEDS ORDERED: hydrALAZINE HCL 20 MG/ML VIAL IV PUSH PRN (09:15)
[2017-04-08] MEDS: SODIUM CHLORIDE 1 GRAM TAB PO SCH ×3 (09:51→16:23)
[2017-04-08] MEDS: PROPRANOLOL HCL 20 MG TAB PO SCH ×2 (09:51→21:53)
[2017-04-08] MEDS: PREGABALIN 100 MG CAP PO SCH ×2 (09:51→21:53)
[2017-04-08] MEDS: LOSARTAN 50 MG TAB PO SCH (09:51)
[2017-04-08] MEDS: SUCRALFATE 1 GM TAB PO SCH ×2 (09:51→21:53)
[2017-04-08] MEDS: ATORVASTATIN 10 MG TAB PO SCH (09:51)
[2017-04-08] MEDS: PANTOPRAZOLE SOD 40 MG DELAYED RELEASE TAB PO SCH (09:52)
[2017-04-08] MEDS: DOXAZOSIN MESYLATE 4 MG TAB PO SCH (09:52)
[2017-04-08] MEDS: MONTELUKAST SODIUM 10 MG TAB PO SCH (09:53)
[2017-04-08] MEDS: hydrALAZINE HCL 100 MG TAB PO SCH ×3 (09:53→16:23)
[2017-04-08] MEDS: ASPIRIN EC 81 MG TABEC PO SCH (09:53)
[2017-04-08] MEDS: SODIUM CHLORIDE 0.9% FLUSH 10 ML FLUSH IV FLUSH SCH ×2 (09:53→21:53)
[2017-04-08] MEDS: LEVOBUNOLOL HCL 0.5% OPHT SOLN 5 ML BTL EACH EYE SCH ×2 (09:53→21:52)
[2017-04-08] MEDS: TAMSULOSIN HCL 0.4 MG CAP PO SCH (09:53)
[2017-04-08] MEDS: ENOXAPARIN SODIUM 40 MG/0.4 ML SYRINGE SQ SCH (09:54)
[2017-04-08] MEDS: prednisoLONE ACETATE 1% OPHT SUSP 5 ML BTL RIGHT EYE SCH (09:54)
[2017-04-08] MEDS ORDERED: POTASSIUM CHLORIDE 20 MEQ CONTROLLED RELEASE TAB PO ONE (10:00)
[2017-04-08] MEDS: FUROSEMIDE 40 MG/4 ML VIAL IV PUSH SCH ×2 (10:03→23:04)
[2017-04-08] MEDS: ALBUMIN 25% INJ 50 ML IV SCH ×2 (10:13→21:55)
--- NOTE | 2017-04-08 12:03 | HHI.PR ---
Subjective Remarks Follow-up pneumonia. States he is breathing much better on nasal cannula. Recent history of rectal bleeding has been taken off aspirin and was told not to be on anticoagulation. DW RN Objective Vitals Vital Signs Date Time Temp Pulse Resp B/P (MAP) Pulse Ox O2 Delivery O2 Flow Rate FiO2 04/08/17 11:07 20 04/08/17 09:48 Nasal Cannula 2.00 04/08/17 08:00 98.0 70 20 172/62 (98) 94 04/08/17 07:15 94 Nasal Cannula 3.00 04/08/17 03:59 98.8 75 20 150/58 (88) 92 04/08/17 00:00 98.0 20 92 160/58 (92) 04/08/17 00:00 63 04/07/17 20:48 97 Nasal Cannula 2.50 04/07/17 20:00 98.5 68 20 158/69 (98) 93 04/07/17 20:00 65 04/07/17 20:00 Nasal Cannula 3.00 04/07/17 16:00 98.1 69 18 157/63 (94) 94 04/07/17 16:00 67 04/07/17 15:10 94 Nasal Cannula 3.00 04/07/17 13:44 18 I/O 04/07/17 04/07/17 04/07/17 04/08/17 04/08/17 04/08/17 07:00 15:00 23:00 07:00 15:00 23:00 Intake Total 600 ml 740 ml 480 ml 600 ml Output Total 500 ml 850 ml Balance 600 ml 240 ml -370 ml 600 ml Intake Oral 540 ml 480 ml IV Total 600 ml 200 ml 600 ml Output Urine Total 500 ml 850 ml # Voids 6 5 2 # Bowel Movements 2 1 Result Diagram: 04/08/17 0648 04/08/17 0648 Imaging Last Impressions Chest X-Ray 04/06/17 1400 Signed Impressions: Service Date/Time: Thursday, April 06, 2017 14:29 - CONCLUSION: Bibasilar patchiness consistent with probable pneumonia. Clinical correlation is recommended. Small right pleural effusion and tiny left pleural effusion. Donovan Chen MD Head CT 04/06/17 0000 Signed Impressions: Service Date/Time: Thursday, April 06, 2017 15:18 - CONCLUSION: 1. Mild stable cerebral atrophy. 2. Mild periventricular and subcortical white matter small vessel ischemic changes bilaterally. 3. 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 4. No acute infarct, acute hemorrhage, mass effect or extra-axial fluid collections. Donovan Chen MD Objective Remarks GENERAL: Well-developed, well-nourished in no distress INTEGUMENTARY: Warm and dry. NECK: Supple, trachea midline. Has JVD. CARDIOVASCULAR: Regular rate and rhythm without murmurs, gallops, or rubs. RESPIRATORY: Breath sounds diminished at bilateral bases no accessory muscle use. GASTROINTESTINAL: Abdomen soft, non-tender, nondistended. MUSCULOSKELETAL: No cyanosis, no clubbing. Generalized weakness noted. Improving anasarca NEUROLOGICAL: Alert and oriented. Non-focal. Procedures none A/P Problem List: (1) Bilateral pneumonia ICD Code: J18.9 - Pneumonia, unspecified organism Status: Acute (2) Hypokalemia ICD Code: E87.6 - Hypokalemia Status: Acute (3) Congestive heart failure ICD Code: I50.9 - Heart failure, unspecified Status: Acute (4) Atypical chest pain ICD Code: R07.89 - Other chest pain (5) Diabetes mellitus ICD Code: E11.9 - Type 2 diabetes mellitus without complications Status: Chronic Assessment and Plan Mr. Montaño is a 81-year-old male diabetes mellitus, ISIDORO on CPAP at night, status post Jo Ann-en-Y gastric bypass who presented to the emergency room complaining of weakness, shortness of breath, cough, and chest pain for 2-3 weeks. His reported to the ED provider that he had been on multiple rounds of antibiotics over the past few weeks without improvement for his recent illness. He was admitted for new onset CHF and hypokalemia. Review of chest x-ray appears most consistent with bilateral pneumonia with failed outpatient therapy ; possible new onset of mild CHF as well. Bilateral pneumonia with failed outpatient treatment. Meets sepsis criteria. Pro-calcitonin within normal limits likely this is viral we will discontinue IV antibiotics. I Atypical Chest pain. Ruled out for PR. Anasarca secondary to hypoalbuminemia echocardiogram with preserved EF. Continue IV diuresis and will add IV albumin. Patient already lost 9 kg Type 2 DM. Fingerstick stable off home meds. Continue to monitor fingersticks Hypokalemia. Replaced ISIDORO. Stable continue CPAP DVT prophylaxis. Lovenox 40 mg subq q24h Discharge Planning Possible discharge to [facility] in the morning Problem Qualifiers (1) Congestive heart failure: Qualified Codes: I50.9 - Heart failure, unspecified Rudolph Beasley MD Apr 08, 2017 12:03
--- NOTE | 2017-04-08 12:12 | HHI.PR ---
Objective Vitals Vital Signs Date Time Temp Pulse Resp B/P (MAP) Pulse Ox O2 Delivery O2 Flow Rate FiO2 04/08/17 11:07 20 04/08/17 09:48 Nasal Cannula 2.00 04/08/17 08:00 68 04/08/17 08:00 98.0 70 20 172/62 (98) 94 04/08/17 07:15 94 Nasal Cannula 3.00 04/08/17 03:59 98.8 75 20 150/58 (88) 92 04/08/17 00:00 98.0 20 92 160/58 (92) 04/08/17 00:00 63 04/07/17 20:48 97 Nasal Cannula 2.50 04/07/17 20:00 98.5 68 20 158/69 (98) 93 04/07/17 20:00 65 04/07/17 20:00 Nasal Cannula 3.00 04/07/17 16:00 98.1 69 18 157/63 (94) 94 04/07/17 16:00 67 04/07/17 15:10 94 Nasal Cannula 3.00 04/07/17 13:44 18 I/O 04/07/17 04/07/17 04/07/17 04/08/17 04/08/17 04/08/17 07:00 15:00 23:00 07:00 15:00 23:00 Intake Total 600 ml 740 ml 480 ml 600 ml Output Total 500 ml 850 ml Balance 600 ml 240 ml -370 ml 600 ml Intake Oral 540 ml 480 ml IV Total 600 ml 200 ml 600 ml Output Urine Total 500 ml 850 ml # Voids 6 5 2 # Bowel Movements 2 1 Result Diagram: 04/08/1748 04/08/17 0648 Objective Remarks GENERAL: Well-developed, well-nourished in no distress INTEGUMENTARY: Warm and dry. NECK: Supple, trachea midline. Has JVD. CARDIOVASCULAR: Regular rate and rhythm without murmurs, gallops, or rubs. RESPIRATORY: Breath sounds diminished at bilateral basesno accessory muscle use. GASTROINTESTINAL: Abdomen soft, non-tender, nondistended. MUSCULOSKELETAL: No cyanosis, no clubbing. Generalized weakness noted. Anasarca NEUROLOGICAL: Alert and oriented. Non-focal. Procedures none A/P Problem List: (1) Bilateral pneumonia ICD Code: J18.9 - Pneumonia, unspecified organism Status: Acute (2) Hypokalemia ICD Code: E87.6 - Hypokalemia Status: Acute (3) Congestive heart failure ICD Code: I50.9 - Heart failure, unspecified Status: Acute (4) Atypical chest pain ICD Code: R07.89 - Other chest pain (5) Diabetes mellitus ICD Code: E11.9 - Type 2 diabetes mellitus without complications Status: Chronic Assessment and Plan Mr. Montaño is a 81-year-old male diabetes mellitus, ISIDORO on CPAP at night, status post Jo Ann-en-Y gastric bypass who presented to the emergency room complaining of weakness, shortness of breath, cough, and chest pain for 2-3 weeks. His reported to the ED provider that he had been on multiple rounds of antibiotics over the past few weeks without improvement for his recent illness. He was admitted for new onset CHF and hypokalemia. Review of chest x-ray appears most consistent with bilateral pneumonia with failed outpatient therapy ; possible new onset of mild CHF as well. Bilateral pneumonia with failed outpatient treatment. Each sepsis criteria. Check pro-calcitonin in light of leukopenia this might be viral - Antibiotics: IV Zosyn and Vancomycin - Albuterol q6h ATC and q2h PRN sob/wheezing - Consult pulmonology - appreciate assistance Atypical Chest pain - Patient ruled out for NC with cardiac enzymes - continuous cardiac telemetry to monitor for arrhythmias - pain free at the time of my visit - monitor I and Os - Heart healthy diet CHF, new onset with anasarca - small bilateral pleural effusions on CXR, BNP 262 - Diuresed in ED with IV Lasix -Increase Lasix to 40 mg IV BID with potassium supplementation - check echocardiogram to assess cardiac structure and function - consult Dr. Alvares if needed Type 2 DM - holding home oral medications for now - Accuchecks AC and HS with low dose NovoLog sliding scale coverage - monitor trends in blood glucose readings and adjust treatment accordingly - hypoglycemia treatment/guidelines ordered Hypokalemia - K+ 3.2 on admission - Potassium replaced; will follow up on am BMP results and will replace further as indicated ISIDORO - CPAP ordered DVT prophylaxis - Lovenox 40 mg subq q24h Problem Qualifiers (1) Congestive heart failure: Qualified Codes: I50.9 - Heart failure, unspecified Rudolph Beasley MD Apr 08, 2017 12:11
[2017-04-08] MEDS ORDERED: FURO1TAB60 PO (17:29)
[2017-04-08] MEDS ORDERED: POTA10CA PO (17:29)
--- NOTE | 2017-04-08 17:30 | HHI.DCPOC ---
Discharge Care Plan Diagnosis: (1) Anasarca Your Health Problems Are: Difficulty with ADL Exercise Tolerance Goals to Promote Your Health * To prevent worsening of your condition and complications * To maintain your health at the optimal level Directions to Meet Your Goals Take your medications as prescribed Follow your dietary instruction Follow activity as directed Keep your appointments as scheduled Take your immunizations and boosters as scheduled If your symptoms worsen call your PCP, if no PCP go to Urgent Care Center or Emergency Room Smoking is Dangerous to Your Health. Avoid second hand smoke Call the 24-hour hour crisis hotline for domestic abuse at Rudolph Beasley MD Apr 08, 2017 17:30
--- NOTE | 2017-04-08 19:04 | HHI.PR ---
Subjective Remarks Feels better Less shortness of breath Left lower extremity swelling Objective Vital Signs Date Time Temp Pulse Resp B/P (MAP) Pulse Ox O2 Delivery O2 Flow Rate FiO2 04/08/17 17:33 20 04/08/17 17:32 73 04/08/17 16:00 98.0 73 19 182/75 (110) 93 04/08/17 15:43 92 Nasal Cannula 2.00 04/08/17 12:00 97.7 73 18 164/68 (100) 92 04/08/17 12:00 70 04/08/17 11:07 20 04/08/17 09:48 Nasal Cannula 2.00 04/08/17 08:00 68 04/08/17 08:00 98.0 70 20 172/62 (98) 94 04/08/17 07:15 94 Nasal Cannula 3.00 04/08/17 03:59 98.8 75 20 150/58 (88) 92 04/08/17 00:00 98.0 20 92 160/58 (92) 04/08/17 00:00 63 04/07/17 20:48 97 Nasal Cannula 2.50 04/07/17 20:00 98.5 68 20 158/69 (98) 93 04/07/17 20:00 65 04/07/17 20:00 Nasal Cannula 3.00 I/O 04/07/17 04/07/17 04/07/17 04/08/17 04/08/17 04/08/17 07:00 15:00 23:00 07:00 15:00 23:00 Intake Total 600 ml 740 ml 480 ml 600 ml 50 ml Output Total 500 ml 850 ml Balance 600 ml 240 ml -370 ml 600 ml 50 ml Intake Oral 540 ml 480 ml IV Total 600 ml 200 ml 600 ml 50 ml Output Urine Total 500 ml 850 ml # Voids 6 5 2 # Bowel Movements 2 1 Result Diagram: 04/08/1764704/08/1748 Objective Remarks Physical exam: General appearance: no acute distress Head and neck examination: atraumatic normocephalic Neck: supple trachea midline Lungs: Crackles Heart: normal S1-S2 Abdomen: soft nontender positive bowel sounds Extremities: Less edema no cyanosis Neurological examination: nonfocal moves all extremities awake oriented Skin: no rashes seen Assessment and Plan Assessment and Plan Pneumonia multilobar CHF with exacerbation hypoxemia Obstructive sleep apnea deconditioning The patient improving Continue current treatment Follow-up on cultures Wean off FiO2 for O2 sat more than or equal to 89% If continues to improve in a.m. may consider discharge to rehab Will need follow-up imaging in 4-6 weeks Praveen Arango MD Apr 08, 2017 19:04
[2017-04-08] MEDS: LATANOPROST 0.005% OPHT SOLN 2.5 ML BTL LEFT EYE SCH (21:53)
[2017-04-08] MEDS: POTASSIUM CHLORIDE 10 MEQ CAP PO SCH (21:54)
[2017-04-08] MEDS: ZOLPIDEM TARTRATE 10 MG TAB PO PRN (23:04)
[2017-04-09] VITALS (7 sets, daily range): BP systolic 139–189; BP diastolic 61–78; PULSE 68–87; RESP 18; TEMP 97.8–98.2; O2SAT 92–96
[2017-04-09] MEDS: RESP: ALBUTEROL 2.5 MG/IPRATROPIUM 0.5 MG NEB (SCH) NEB ×2 (03:33→09:47)
[2017-04-09] MEDS: INSULIN ASPART SUPPLEMENTAL SCALE SQ SCH ×2 (08:00→11:40)
[2017-04-09] MEDS ORDERED: CARD4TAB2 PO (08:01)
[2017-04-09] MEDS ORDERED: DOXAZOSIN MESYLATE 4 MG TAB PO SCH (09:00)
[2017-04-09] MEDS: prednisoLONE ACETATE 1% OPHT SUSP 5 ML BTL RIGHT EYE SCH (09:00)
[2017-04-09] MEDS: LEVOBUNOLOL HCL 0.5% OPHT SOLN 5 ML BTL EACH EYE SCH (09:10)
[2017-04-09] MEDS: SODIUM CHLORIDE 0.9% FLUSH 10 ML FLUSH IV FLUSH SCH (09:10)
[2017-04-09] MEDS: MONTELUKAST SODIUM 10 MG TAB PO SCH (09:12)
[2017-04-09] MEDS: TAMSULOSIN HCL 0.4 MG CAP PO SCH (09:12)
[2017-04-09] MEDS: hydrALAZINE HCL 100 MG TAB PO SCH ×2 (09:12→11:37)
[2017-04-09] MEDS: SUCRALFATE 1 GM TAB PO SCH (09:12)
[2017-04-09] MEDS: PREGABALIN 100 MG CAP PO SCH (09:12)
[2017-04-09] MEDS: PANTOPRAZOLE SOD 40 MG DELAYED RELEASE TAB PO SCH (09:12)
[2017-04-09] MEDS: SODIUM CHLORIDE 1 GRAM TAB PO SCH ×2 (09:12→11:37)
[2017-04-09] MEDS: POTASSIUM CHLORIDE 10 MEQ CAP PO SCH (09:12)
[2017-04-09] MEDS: ATORVASTATIN 10 MG TAB PO SCH (09:12)
[2017-04-09] MEDS: PROPRANOLOL HCL 20 MG TAB PO SCH (09:12)
[2017-04-09] MEDS: LOSARTAN 50 MG TAB PO SCH (09:12)
[2017-04-09] MEDS: ALBUMIN 25% INJ 50 ML IV SCH (09:13)
[2017-04-09 10:53] LABS: AUTOMATED NEUTROPHIL # 1.4 TH/MM3 (1.8-7.7); BASOPHIL % 1.4 % (0.0-2.0); EOSINOPHIL # 0.7 TH/MM3 (0-0.4); EOSINOPHIL % 20.8 % (0.0-4.0); HEMATOCRIT 28.2 % (39.0-51.0); HEMOGLOBIN 9.1 GM/DL (13.0-17.0); LYMPH % 24.9 % (9.0-44.0); LYMPHOCYTE # 0.8 TH/MM3 (1.0-4.8); MEAN CELL VOLUME 67.8 FL (80.0-100.0); MEAN CORPUSCULAR HEMOGLOBIN 21.9 PG (27.0-34.0); MEAN CORPUSCULAR HGB CONC 32.3 % (32.0-36.0); MEAN PLATELET VOLUME 7.4 FL (7.0-11.0); MONO % 7.7 % (0.0-8.0); MONOCYTE # 0.2 TH/MM3 (0-0.9); NEUT % 45.2 % (16.0-70.0); PLATELET COUNT 284 TH/MM3 (150-450); RED BLOOD COUNT 4.16 MIL/MM3 (4.50-5.90); RED CELL DISTRIBUTION WIDTH 20.2 % (11.6-17.2); WHITE BLOOD COUNT 3.2 TH/MM3 (4.0-11.0)
--- NOTE | 2017-04-09 11:10 | HHI.DS ---
Discharge Summary Admission Date Apr 07, 2017 at 03:27 Discharge Date: Apr 09, 2017 Admitting Diagnosis new onset CHF, hypokalemia (1) Bilateral pneumonia ICD Code: J18.9 - Pneumonia, unspecified organism Diagnosis: Principal Status: Acute (2) Hypokalemia ICD Code: E87.6 - Hypokalemia Diagnosis: Principal Status: Acute (3) Atypical chest pain ICD Code: R07.89 - Other chest pain Diagnosis: Principal (4) Diabetes mellitus ICD Code: E11.9 - Type 2 diabetes mellitus without complications Diagnosis: Principal Status: Chronic Procedures none Brief History - From Admission Mr. Montaño is a 81-year-old male diabetes mellitus, ISIDORO on CPAP at night, status post Jo Ann-en-Y gastric bypass who presented to the emergency room complaining of weakness, shortness of breath, cough, and chest pain for 2-3 weeks. His reported to the ED provider that he had been on multiple rounds of antibiotics over the past few weeks without improvement for his recent illness. He was admitted for new onset CHF and hypokalemia. He is seen in his hospital room late at night and is very lethargic during the visit. He answers a few questions but repetitively falls asleep throughout the visit. He denies pain and reports improvement in shortness of breath. He states he follows with Dr. Alvares (cardiology) but cannot tell me what for. He reports using CPAP for ISIDORO at night but does not know what his settings are. He is noted to breath extremely shallow while sleeping during my visit. He reports a symptom duration of 3 weeks. Chest x-ray is personally reviewed by me and with Dr. Wilson (supervising physician) and appears more consistent bilateral pneumonia; possible new onset of mild CHF as well. CBC/BMP: 04/09/17 1020 04/08/17 0648 Significant Findings Laboratory Tests Test 04/06/17 14:20 04/06/17 15:15 04/06/17 18:00 04/06/17 20:31 White Blood Count 3.7 TH/MM3 (4.0-11.0) Red Blood Count 4.17 MIL/MM3 (4.50-5.90) Hemoglobin 9.4 GM/DL (13.0-17.0) Hematocrit 28.1 % (39.0-51.0) Mean Corpuscular Volume 67.3 FL (80.0-100.0) Mean Corpuscular Hemoglobin 22.5 PG (27.0-34.0) Red Cell Distribution Width 19.6 % (11.6-17.2) Monocytes (%) (Auto) 8.3 % (0.0-8.0) Eosinophils (%) (Auto) 19.9 % (0.0-4.0) Neutrophils # (Auto) 1.6 TH/MM3 (1.8-7.7) Eosinophils # (Auto) 0.7 TH/MM3 (0-0.4) Total Protein 4.9 GM/DL (6.4-8.2) Albumin 1.7 GM/DL (3.4-5.0) Calcium Level 7.0 MG/DL (8.5-10.1) Alanine Aminotransferase (ALT/SGPT) 9 U/L (12-78) Potassium Level 3.2 MEQ/L (3.5-5.1) Protein Corrected Calcium 8.2 MG/DL (8.5-10.1) Total Creatine Kinase 31 U/L (39-308) 33 U/L (39-308) B-Type Natriuretic Peptide 262 PG/ML (0-100) Urine Protein 30 mg/dL (NEG-TRACE) Urine Mucus FEW /lpf (OCC) Test 04/07/17 03:20 04/07/17 03:28 04/07/17 06:44 04/08/17 06:48 White Blood Count 3.6 TH/MM3 (4.0-11.0) 3.7 TH/MM3 (4.0-11.0) Red Blood Count 4.36 MIL/MM3 (4.50-5.90) 4.05 MIL/MM3 (4.50-5.90) Hemoglobin 9.9 GM/DL (13.0-17.0) 8.9 GM/DL (13.0-17.0) Hematocrit 29.5 % (39.0-51.0) 27.2 % (39.0-51.0) Mean Corpuscular Volume 67.6 FL (80.0-100.0) 67.2 FL (80.0-100.0) Mean Corpuscular Hemoglobin 22.6 PG (27.0-34.0) 21.8 PG (27.0-34.0) Red Cell Distribution Width 19.7 % (11.6-17.2) 19.8 % (11.6-17.2) Eosinophils (%) (Auto) 25.1 % (0.0-4.0) 23.8 % (0.0-4.0) Basophils (%) (Auto) 2.6 % (0.0-2.0) Neutrophils # (Auto) 1.4 TH/MM3 (1.8-7.7) 1.4 TH/MM3 (1.8-7.7) Lymphocytes # (Auto) 0.9 TH/MM3 (1.0-4.8) Eosinophils # (Auto) 0.9 TH/MM3 (0-0.4) 0.9 TH/MM3 (0-0.4) Random Glucose 61 MG/DL (74-106) 64 MG/DL (74-106) Calcium Level 7.9 MG/DL (8.5-10.1) 8.0 MG/DL (8.5-10.1) Potassium Level 3.4 MEQ/L (3.5-5.1) 3.3 MEQ/L (3.5-5.1) Estimat Glomerular Filtration Rate 85 ML/MIN (>89) 79 ML/MIN (>89) Total Creatine Kinase 20 U/L (39-308) Troponin I LESS THAN 0.02 NG/ML Blood Gas HCO3 27 mmol/L (22-26) Blood Gas Base Excess 2.8 mmol/L (-2-2) Arterial Blood pH 7.44 (7.380-7.420) Blood Gas Hemoglobin 9.6 G/DL (12.0-16.0) Test 04/09/17 10:20 White Blood Count 3.2 TH/MM3 (4.0-11.0) Red Blood Count 4.16 MIL/MM3 (4.50-5.90) Hemoglobin 9.1 GM/DL (13.0-17.0) Hematocrit 28.2 % (39.0-51.0) Mean Corpuscular Volume 67.8 FL (80.0-100.0) Mean Corpuscular Hemoglobin 21.9 PG (27.0-34.0) Red Cell Distribution Width 20.2 % (11.6-17.2) Eosinophils (%) (Auto) 20.8 % (0.0-4.0) Neutrophils # (Auto) 1.4 TH/MM3 (1.8-7.7) Lymphocytes # (Auto) 0.8 TH/MM3 (1.0-4.8) Eosinophils # (Auto) 0.7 TH/MM3 (0-0.4) Imaging Last Impressions Chest X-Ray 04/06/17 1400 Signed Impressions: Service Date/Time: Thursday, April 06, 2017 14:29 - CONCLUSION: Bibasilar patchiness consistent with probable pneumonia. Clinical correlation is recommended. Small right pleural effusion and tiny left pleural effusion. Donovan Chen MD Head CT 04/06/17 0000 Signed Impressions: Service Date/Time: Thursday, April 06, 2017 15:18 - CONCLUSION: 1. Mild stable cerebral atrophy. 2. Mild periventricular and subcortical white matter small vessel ischemic changes bilaterally. 3. 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 4. No acute infarct, acute hemorrhage, mass effect or extra-axial fluid collections. Donovan Chen MD PE at Discharge GENERAL: Well-developed, well-nourished in no distress INTEGUMENTARY: Warm and dry. NECK: Supple, trachea midline. Has JVD. CARDIOVASCULAR: Regular rate and rhythm without murmurs, gallops, or rubs. RESPIRATORY: Breath sounds diminished at bilateral bases no accessory muscle use. GASTROINTESTINAL: Abdomen soft, non-tender, nondistended. MUSCULOSKELETAL: No cyanosis, no clubbing. Generalized weakness noted. Improving anasarca NEUROLOGICAL: Alert and oriented. Non-focal. Hospital Course Mr. Montaño is a 81-year-old male diabetes mellitus, ISIDORO on CPAP at night, status post Jo Ann-en-Y gastric bypass who presented to the emergency room complaining of weakness, shortness of breath, cough, and chest pain for 2-3 weeks. His reported to the ED provider that he had been on multiple rounds of antibiotics over the past few weeks without improvement for his recent illness. He was admitted for new onset CHF and hypokalemia. Review of chest x-ray appears most consistent with bilateral pneumonia with failed outpatient therapy ; possible new onset of mild CHF as well. Bilateral pneumonia with failed outpatient treatment. Meets sepsis criteria. Pro-calcitonin within normal limits likely this is viral we will discontinue IV antibiotics. Atypical Chest pain. Ruled out for OH. Anasarca secondary to hypoalbuminemia and ? CHF echocardiogram with preserved EF. Continue diuresis and IV albumin. Patient already lost 10 kg. States he was eating enough and anorexic for at least 3 weeks 2/2 respiratory sxs. Advised op f/u if anorexia persists Type 2 DM. Fingerstick stable off home meds. Continue to monitor fingersticks Hypokalemia. Replaced ISIDORO. Stable continue CPAP HTN. Uncontrolled. Increase Cardura and ct rest of home meds Hx recent rectal bleeding. Advised by his MD not to take anticoagulants/ antiplatelets for now DVT prophylaxis. SCD and early ambulation Pt Condition on Discharge: Stable Discharge Disposition: Rehab Inpatient Discharge Time: > 30 minutes Discharge Instructions DIET: Follow Instructions for: Heart Healthy Diet, Diabetic Diet Activities you can perform: Regular-No Restrictions Activities to Avoid: Driving Follow up Referrals: PCP Follow-up - 1 Week Pulmonology - 1 Week New Orders: BASIC METABOLIC PROF - 04/11/17 New Medications: Furosemide (Lasix) 40 Mg Tab 40 MG PO BID for fluid retention, #60 TAB 0 Refills Doxazosin (Cardura) 4 Mg Tab 8 MG PO DAILY for Blood Pressure Management, #60 TAB Potassium Chloride ER (Potassium Chloride ER) 10 Meq Cap 40 MEQ PO BID for Electrolyte Replacement, #40 CAP Continued Medications: Alprazolam (Xanax) 1 Mg Tab 1 MG PO BID PRN for ANXIETY, TAB 0 Refills Amlodipine (Amlodipine) 10 Mg Tab 10 MG PO DAILY for Blood Pressure Management, #30 TAB 0 Refills Glimepiride (Glimepiride) 2 Mg Tab 2 MG PO DAILY for Blood Sugar Management, #30 TAB 0 Refills Take with breakfast or first main meal Hydralazine HCl (Hydralazine HCl) 50 Mg Tablet 100 MG PO TID Levobunolol Opth Drops (Levobunolol Opth Drops) 0.5% Drops 1 DROP EACH EYE BID for Glaucoma, #1 BOTTLE 0 Refills Losartan (Losartan) 100 Mg Tab 100 MG PO DAILY for Blood Pressure Management, #30 TAB 0 Refills Montelukast (Singulair) 10 Mg Tab 10 MG PO DAILY, #30 TAB 0 Refills Pantoprazole (Pantoprazole) 40 Mg Tab 40 MG PO DAILY for Reflux, #30 TAB 0 Refills Prednisolone Acetate Opth 1% (Pred Forte Opth 1%) 1% Susp 1 DROP RIGHT EYE DAILY, #1 BOTTLE 0 Refills Pregabalin (Lyrica) 100 Mg Cap 100 MG PO BID, #60 CAP 0 Refills Propranolol (Propranolol) 20 Mg Tab 40 MG PO Q12HR, #60 TAB 0 Refills Rosuvastatin (Crestor) 5 Mg Tab 5 MG PO DAILY for Cholesterol Management, #30 TAB 0 Refills Sodium Chloride (Sodium Chloride) 1 Gram Tab 1 GM PO TID for Electrolyte Replacement, TAB 0 Refills Sucralfate (Carafate) 1 Gram Tab 1 GM PO BID, #90 TAB 0 Refills On empty stomach Tamsulosin (Tamsulosin) 0.4 Mg Cap 0.4 MG PO DAILY for Manage Prostate Problems, #30 CAP 0 Refills Tramadol (Tramadol) 50 Mg Tab 100 MG PO Q4-6H PRN for PAIN, TAB 0 Refills Travoprost Opth Drops (Travatan Z Opth Drops) 0.004 % Soln 1 DROP LEFT EYE HS for Glaucoma, #1 BOTTLE 0 Refills Zolpidem (Ambien) 10 Mg Tab 10 MG PO HS for Insomnia, TAB 0 Refills Discontinued Medications: Aspirin DR (Aspirin Adult Low Strength) 81 Mg Tabdr 81 MG PO DAILY, TAB Doxazosin (Cardura) 4 Mg Tab 4 MG PO DAILY, #30 TAB 0 Refills Metformin (Metformin) 500 Mg Tab 500 MG PO DAILY for Blood Sugar Management, #30 TAB 0 Refills With a meal Rudolph Beasley MD Apr 09, 2017 11:10
[2017-04-09 11:21] LABS: BICARBONATE 35.2 MEQ/L (21.0-32.0); CALCIUM 8.2 MG/DL (8.5-10.1); CREATININE 0.85 MG/DL (0.60-1.30); MAGNESIUM 1.9 MG/DL (1.5-2.5)
[2017-04-09] MEDS: FUROSEMIDE 40 MG/4 ML VIAL IV PUSH SCH (11:37)
[2017-04-09] MEDS ORDERED: PHARMACY ORDERED LAB ONE (15:45)
--- NOTE | 2017-04-18 09:04 | PQ ---
Physician Query Response Document PATIENT: SITA DOZIER : 1935 ADMIT DATE: 04/07/2017 3:27 AM DISCH DATE: 04/09/2017 1:49 PM RESPONDING PROVIDER #: [place] QUERY TEXT: CHF Acuity and Type Congestive Heart Failure is documented in the Medical Record. Please document the type and acuity (in cludes probable or suspected) Such as: Type: -- Systolic -- Diastolic -- Combined -- Other, please specify Acuity: -- Acute -- Chronic -- Acute on chronic -- Other, please specify If you have any additional questions/comments and/or concerns, please do not hesitate to reach out to the CDI/Coding Hotline, Ext. [phone]. Also please document the underlying cause of the CHF (includes probable or suspected) The patient's Clinical Indicators include: CHF is documented in this chart. H Echocardiogram performed 04/07/17 - CONCLUSIONS Normal left ventricular size. Wall thickness is measured at the upper limits of normal. The left ventricular systolic function is low normal with an estimated ejection fraction in the range of 50- 55%. There is trace tricuspid valve regurgitation. The estimated pulmonary arterial pressure is 17 mmHg. Trivial pulmonary valve regurgitation. There is a trivial pericardial effusion present. Query created by: Nila Lomax on 04/14/2017 4:27 PM RESPONSE TEXT: Probable new onset CHF with preserved EF/systolic function Electronically signed by: Rudolph Beasley MD 04/18/2017 9:01 AM
== END 2017-04-09 13:49 | DRG 195 ==
LOC: NEPC 13:36 → NEDA 16:42 → INTOOBSV 16:42 → N04B 18:44 → OBSVTOIN 04-07 03:27
PROVIDERS: ADMIT Internal Medicine; ATTEND Internal Medicine
DX: J12.9 Viral pneumonia, unspecified (principal); I11.0 Hypertensive heart disease with heart failure; E11.40 Type 2 diabetes mellitus with diabetic neuropathy, unspecified; I50.9 Heart failure, unspecified; Z79.84 Long term (current) use of oral hypoglycemic drugs; G47.33 Obstructive sleep apnea (adult) (pediatric); E87.6 Hypokalemia; R09.02 Hypoxemia; Z79.82 Long term (current) use of aspirin; Z72.0 Tobacco use; E66.9 Obesity, unspecified; Z68.34 Body mass index [BMI] 34.0-34.9, adult; Z98.84 Bariatric surgery status; E78.5 Hyperlipidemia, unspecified; R07.9 Chest pain, unspecified
CPT/HCPCS: 36600; 70450; 71045; 76937; 80048; 80053; 81001; 82550; 82805; 82948; 83605; 83735; 83880; 84145; 84484; 85025; 85610; 85730; 87804; 93005; 93306; 94002; 94640; 94664; 96374; G0378; J0360; J1650; J1940; J2543; J3370; J7040; P9047

== ENCOUNTER → 2017-04-18 | Outpatient (CLI) | payer BC, MEDICARE ==
[~2017-04-18] MED LIST changes: +AMBI10TA PO; -AMLO10 PO; +AMLO10TA2 PO; -ASPI81TA82 PO; +Albuterol-Ipratropium Neb NEB; +BENZ100 PO; -BUPR150T3 PO; +Budeson-Formot 160-4.5 Mcg Inh INH; +CARA1TAB6 PO; +CARD4TAB2 PO; -CETI10 PO; +CHLORHEXIDINE GLUCONATE 2 % 1 PACK (2 CLOTHS) TOPICAL PRN; +DO NOT ADM ANY ANTICOAGULANT DRUGS PRN; -DOXA1 PO; +FERR325T20 PO; -FISH100020 PO; +FURO1TAB60 PO; +FURO20TA PO; +GLIM2TAB PO; +HOSP BED1; +HYDR-3799 PO; +HYDR-3800 PO; -HYDR50TA15 PO; +Heparin Inj SQ; +LACT PO; -LACT20SO4 PO; +LACTATED RINGER'S 1000 ML IV PRN; +LEVO0.5S18 EACH EYE; +LIDOCAINE HCL 1% PF 5 ML SYRINGE OTHER ONE; +LOPE2CAP2 PO; +LYRI100C PO; +Lactulose Liq PO; -METF500 PO; +METOPROLOL TARTRATE 25 MG TAB PO PRN; +MONT10TA2 PO; -NEUR600T PO; -OMNI1SUS RIGHT EYE; +PANT40TA3 PO; -PERC5TAB12 PO; +PHENYLEPH/NS 1000 MCG/10 ML SYR IV ONE; +POTA10CA PO; +POVIDONE IODINE 5% (ANTISEPSIS KIT) 4 APPLICATIONS EACH NARE PRN; +PRED1SUS RIGHT EYE; -PROP20TA24 PO; +PROP20TA3 PO; +PROPOFOL 200 MG/20 ML AMP IV ONE; -PROZ20CA11 PO; -SAW450CA2 PO; -SODI1 PO; +SODI1TAB PO; +SODIUM CHLORID 0.9% 500 ML IV PRN; +SUCCINYLCHOLINE CHLORIDE 100 MG/5 ML SYRINGE IV PUSH ONE; +SUCRALFATE 1 GM/10 ML CUP PO SCH; -TAB-TAB PO; -TAMS.4 PO; +TAMS0.4C4 PO; +TRAM50TA PO; +TRAV0.00 LEFT EYE; -ULTR50TA PO; +XANA1TAB2 PO; -XANA1TAB6 PO; -ZOLP10TA3 PO; -ZOVI800T13 PO; -[UNRECOGNIZED DRUG - CODE] EACH EYE; +ePHEDrine/NS 25 MG/5 ML SYRINGE IV ONE; +guaiFENesin ER PO
--- NOTE | 2017-04-18 14:02 | GIPROC ---
[facility] [address] [facility]. [facility] [place], [address] EGD PROCEDURE REPORT EXAM DATE: 04/18/2017 PATIENT NAME: Timbo Montaño MR #: [id number] BIRTHDATE: 1935 ATTENDING: Celina Carmona MD ORDER #: [id number] HYDROTREATER OPERATOR: Mera Johnson and Kemar Escobar STATUS: outpatient INDICATIONS: The patient is a 81 yr old male here for an EGD due to acute post hemorrhagic anemia PROCEDURE PERFORMED: EGD, diagnostic MEDICATIONS: None and Per Anesthesia. TOPICAL ANESTHETIC: CONSENT: The patient understands the risks and benefits of the procedure and understands that these risks include, but are not limited to: sedation, allergic reaction, infection, perforation and/or bleeding. Alternative means of evaluation and treatment include, among others: physical exam, x-rays, and/or surgical intervention. The patient elects to proceed with this endoscopic procedure. medical equipment was checked for proper function. Hand hygiene and appropriate measures for infection prevention was taken. After the risks, benefits and alternatives of the procedure were thoroughly explained, Informed consent was verified, confirmed and timeout was successfully executed by the treatment team. The patient was anesthetized with topical anesthesia and the Pentax [id number] endoscope was introduced through the mouth and advanced to the second portion of the duodenum. Retroflexed views revealed no abnormalities The gastroscope was then slowly withdrawn and removed. ESOPHAGUS: There was LA Class D esophagitis noted. STOMACH: Gastric surgery. DUODENUM: The duodenal mucosa appeared normal in the 3rd part of the duodenum. ADVERSE EVENTS: There were no complications. IMPRESSIONS: 1. There was LA Class D esophagitis noted 2. Gastric surgery 3. Normal duodenal mucosa in the 3rd part of the duodenum 4. Retroflexed views revealed no abnormalities RECOMMENDATIONS: 1. Anti-reflux regimen 2. Continue PPI 3. Avoid NSAIDS 4. Carafate liquid 1 gm po tid PATIENT CONDITION: stable DISPOSITION: Inpatient REPEAT EXAM: Return 1 month EGD Celina Carmona MD eSigned: Celina Carmona MD 04/18/2017 2:01 PM cc: PATIENT NAME: Timbo Montaño MR#: [id number]
[2017-04-18 14:45] VITALS: BP 117/65; TEMP 97.6
[2017-04-18 14:50] VITALS: PULSE 63; RESP 16; O2SAT 95
== END ==
LOC: HSDC 12:42
PROVIDERS: ATTEND Internal Medicine Gastroenterology
DX: D50.9 Iron deficiency anemia, unspecified (principal); K20.9 Esophagitis, unspecified; Z98.84 Bariatric surgery status
CPT/HCPCS: J0330; J2370

== ENCOUNTER 2017-04-26 12:46 | Inpatient (IN) | payer MEDICARE ==
[~2017-04-26 12:46] MED LIST changes: -Albuterol-Ipratropium Neb NEB; -BENZ100 PO; -Budeson-Formot 160-4.5 Mcg Inh INH; -CHLORHEXIDINE GLUCONATE 2 % 1 PACK (2 CLOTHS) TOPICAL PRN; -DO NOT ADM ANY ANTICOAGULANT DRUGS PRN; -FERR325T20 PO; -FURO20TA PO; -HYDR-3799 PO; -Heparin Inj SQ; -LACT PO; -LACTATED RINGER'S 1000 ML IV PRN; -LIDOCAINE HCL 1% PF 5 ML SYRINGE OTHER ONE; -LOPE2CAP2 PO; -Lactulose Liq PO; -METOPROLOL TARTRATE 25 MG TAB PO PRN; -PHENYLEPH/NS 1000 MCG/10 ML SYR IV ONE; -POVIDONE IODINE 5% (ANTISEPSIS KIT) 4 APPLICATIONS EACH NARE PRN; -PROPOFOL 200 MG/20 ML AMP IV ONE; -SODIUM CHLORID 0.9% 500 ML IV PRN; -SUCCINYLCHOLINE CHLORIDE 100 MG/5 ML SYRINGE IV PUSH ONE; -SUCRALFATE 1 GM/10 ML CUP PO SCH; -ePHEDrine/NS 25 MG/5 ML SYRINGE IV ONE; -guaiFENesin ER PO
[2017-04-26] MEDS ORDERED: Albuterol-Ipratropium Neb NEB ×2 (12:50)
[2017-04-26] MEDS ORDERED: FERR325T20 PO (12:50)
[2017-04-26] MEDS ORDERED: Heparin Inj SQ (12:50)
[2017-04-26] MEDS ORDERED: Lactulose Liq PO (12:50)
[2017-04-26] MEDS ORDERED: BENZ100 PO (12:50)
[2017-04-26] MEDS ORDERED: LACT PO (12:50)
[2017-04-26] MEDS ORDERED: Budeson-Formot 160-4.5 Mcg Inh INH (12:50)
[2017-04-26] MEDS ORDERED: LOPE2CAP2 PO (12:50)
[2017-04-26] MEDS ORDERED: guaiFENesin ER PO (12:50)
[2017-04-26] MEDS ORDERED: AMLO10TA2 PO (12:50)
[2017-04-26] MEDS ORDERED: NALOXONE HCL 0.4 MG/ML AMP IV PUSH PRN ×2 (13:45→16:30)
[2017-04-26] MEDS ORDERED: ONDANSETRON HCL 4 MG/2 ML VIAL IVP PRN ×2 (13:45→16:30)
[2017-04-26] MEDS ORDERED: SODIUM CHLORIDE 0.9% FLUSH 10 ML FLUSH IV FLUSH PRN ×2 (13:45→16:30)
[2017-04-26] MEDS ORDERED: DEXTROSE 50% IN WATER 50 ML VIAL(D50) IV PUSH PRN (14:45)
[2017-04-26] MEDS ORDERED: GLUCAGON 1 MG/ML VIAL OTHER PRN (14:45)
[2017-04-26] MEDS ORDERED: HYDR-3799 PO (14:49)
[2017-04-26] MEDS ORDERED: PANT40TA3 PO (14:49)
[2017-04-26] MEDS ORDERED: FURO20TA PO (14:49)
[2017-04-26] MEDS ORDERED: LIDOCAINE HCL 1% 20 ML VIAL ONE (15:42)
[2017-04-26 15:55] VITALS: BP 155/68; PULSE 89; RESP 22; TEMP 98.2; O2SAT 94
[2017-04-26 16:10] VITALS: BP 163/67; PULSE 86; RESP 23; O2SAT 95
--- NOTE | 2017-04-26 16:36 | HHI.HP ---
HPI Service [place] [facility] Primary Care Physician No Primary Care Physician Admission Diagnosis Diagnoses: Travel History International Travel<30 Days: No Contact w/Intl Traveler <30 Da: No Traveled to Known Affected Are: No History of Present Illness Patient was seen at around 1:30 PM today April 26, 2017 at the rehabilitation facility prior to transfer to my service. Patient was admitted to inpatient rehabilitation facility [facility] from April 09, 2017 to April 26, 2017 Prior to that, patient was under medical service from April 07, 2017 to April 09, 2017. Patient was initially managed for complaints of dyspnea for past 2-3 weeks on admission to hospital. He was treated for CHF presumably secondary to diastolic heart failure with an echo showing normal EF. He was also on antibiotics for pneumonia which was later discontinued. While at inpatient rehabilitation facility, patient was receiving Zosyn for past 7 days because of Escherichia coli UTI. On March. Was while in rehabilitation facility was noted to be more dyspneic than his normal for which workup with CT chest was done which shows initially moderate pleural effusions. He was initially diuresed with Lasix 40 mg IV twice a day which was started on the night of April 19, 2017.. However after receiving Lasix overnight and one more dose in the morning, patient had syncopal episode while at rehabilitation facility with significant orthostatic hypotension. Therefore Lasix was discontinued. Ultrasound of the chest was done which was initially suboptimal study with underestimation per radiologist. Follow-up ultrasound then still revealed small to moderate pleural effusions. Today, patient still remains to be with high oxygen requirement of 4 L. at the bedside also reported that although patient was participating in physical therapy since I last saw him on April 19 2017, he was not able to participate fully in intensely. He did not participate over the weekend. Patient's abdominal girth also has increased in the past one week. Patient had low-grade fever last night and this morning and also seems to have spiked up to 101 a few days ago as well. He does also complain of abdominal pain which is generalized. He is also noted to be constantly coughing today on examination by medical team PA. Upon my exam as well, patient is coughing quite a bit. Patient was just recently changed from liquids diet to pured diet by GI today. His cough precedes this change. No witnessed episode of aspiration. His mental status remains to be same except that he is tired. However when he is awake, he is oriented and at baseline though forgetful at times. Today however upon my exam, patient is quite sleepy simply because he just received Xanax prior to my arrival. Both our medical team PA and patient's at the bedside reassured me that patient was much more awake alert and participating in his care earlier this morning. denies any significant diarrhea. He did have 1 times episode of loose stools overnight. Denies any urinary symptoms. He however wears a diaper. Decision was made to transfer patient back to medical service per request of the rehabilitation physician and also upon our examination. Patient is not fully participating in his rehabilitation therapy because of his acute medical issues. Review of Systems Except as stated in HPI: all other systems reviewed are Neg Past Family Social History Past Medical History Hypertension Diabetes Obstructive sleep apnea on C Pap at night History of asthma CHF with preserved EF. Suspect diastolic dysfunction. Neuropathy BPH History of left lower extremity DVT with partial occlusion. At left posterior tibial pain. History of recent rectal bleed Not on full anticoagulation secondary to above. Had workup with GI. Latest note on April 19, 2017 advised for heparin prophylactic dose subcutaneous. Severe esophagitis class D. By EGD on April 18, 20172017. On PPI, sucralfate. 1 unit of PRBC and April 19 2017. Escherichia coli UTI Fever Orthostatic hypotension secondary to high dose diuretic use on April 19, 2017. Workup with CT, carotid ultrasound, echo negative. Occasional diarrhea. Stool studies negative. C. difficile negative. 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 Social History Per EMR: Smokes cigars. No history of alcohol abuse or drug abuse. Physical Exam Vital Signs Vital Signs Date Time Temp Pulse Resp B/P (MAP) Pulse Ox O2 Delivery O2 Flow Rate FiO2 04/26/17 16:10 86 23 163/67 (99) 95 04/26/17 15:55 98.2 89 22 155/68 (97 94 Physical Exam GENERAL: This is a likely gentleman, quite sleepy. Not in acute distress. On 4 L nasal cannular. Coughing quite a bit. SKIN: No rashes, ecchymoses or lesions. Cool and dry. HEAD: Atraumatic. Normocephalic. No temporal or scalp tenderness. EYES: No scleral icterus. No injection or drainage. ENT: Nose without bleeding, purulent drainage or septal hematoma. Airway patent. NECK: Trachea midline. No JVD. Supple, nontender, no meningeal signs. CARDIOVASCULAR: Regular rate and rhythm without murmurs, gallops, or rubs. RESPIRATORY: Decreased air entry bilaterally. GASTROINTESTINAL: Abdomen soft, quite distended. No suprapubic tenderness. Mild pain on palpation.. . No guarding. MUSCULOSKELETAL: Extremities without clubbing, cyanosis, or edema. . No calf tenderness. NEUROLOGICAL: Awake and alert.Motor and sensory grossly within normal limits. Normal speech. Laboratory Labs done today while at the rehabilitation facility reviewed. Imaging Chest x-ray done yesterday personally reviewed. Bilateral opacities with bilateral pleural effusions. Caprini VTE Risk Assessment Caprini VTE Risk Assessment: Mod/High Risk (score >= 2) Caprini Risk Assessment Model Point Value = 1 Point Value = 2 Point Value = 3 Point Value = 5 Age 41-60 Minor surgery BMI > 25 kg/m2 Swollen legs Varicose veins or History of unexplained or recurrent spontaneous Oral contraceptives or hormone replacement Sepsis (< 1 month) Serious lung disease, including pneumonia (< 1 month) Abnormal pulmonary function Acute myocardial infarction Congestive heart failure (< 1 month) History of inflammatory bowel disease Medical patient at bed rest Age 61-74 Arthroscopic surgery Major open surgery (> 45 min) Laparoscopic surgery (> 45 min) Malignancy Confined to bed (> 72 hours) Immobilizing plaster cast Central venous access Age >= 75 History of VTE Family history of VTE Factor V Leiden Prothrombin [id number] Lupus anticoagulant Anticardiolipin antibodies Elevated serum homocysteine Heparin-induced thrombocytopenia Other congenital or acquired thrombophilia Stroke (< 1 month) Elective arthroplasty Hip, pelvis, or leg fracture Acute spinal cord injury (< 1 month) Prophylaxis Regimen Total Risk Factor Score Risk Level Prophylaxis Regimen 0-1 Low Early ambulation 2 Moderate Order ONE of the following: *Sequential Compression Device (SCD) *Heparin 5000 units SQ BID 3-4 Higher Order ONE of the following medications: *Heparin 5000 units SQ TID *Enoxaparin/Lovenox 40 mg SQ daily (WT < 150 kg, CrCl > 30 mL/min) *Enoxaparin/Lovenox 30 mg SQ daily (WT < 150 kg, CrCl > 10-29 mL/min) *Enoxaparin/Lovenox 30 mg SQ BID (WT < 150 kg, CrCl > 30 mL/min) AND/OR *Sequential Compression Device (SCD) 5 or more Highest Order ONE of the following medications: *Heparin 5000 units SQ TID (Preferred with Epidurals) *Enoxaparin/Lovenox 40 mg SQ daily (WT < 150 kg, CrCl > 30 mL/min) *Enoxaparin/Lovenox 30 mg SQ daily (WT < 150 kg, CrCl > 10-29 mL/min) *Enoxaparin/Lovenox 30 mg SQ BID (WT < 150 kg, CrCl > 30 mL/min) AND *Sequential Compression Device (SCD) Assessment and Plan Assessment and Plan Impression: Generalized weakness/not being able to participate in physical therapy. Secondary to acute medical issues. Hypoxia with increased requirement of oxygen. Secondary to pleural effusion/ pneumonia. Pleural effusions left more than the right. Since this patient is not able to tolerate diuresis with significant orthostatic hypotension, would now need to do thoracocentesis. Occasional fevers. Patient has been on Zosyn for past 6 days or so. He had continued to have fevers though low-grade. We'll need to rule out coverage. Pneumonia. Possible empyema given long-standing symptoms despite antibiotic therapy. Abdominal distention/mild pain. Possible ileus. Possible other inter- abdominal etiology such as symptomatic cholelithiasis. Escherichia coli UTI Fever Hyponatremia. Patient with poor oral intake. He also has been on sodium tablets. Unsure of reason. Hypertension Diabetes Obstructive sleep apnea on C Pap at night History of asthma CHF with preserved EF. Suspect diastolic dysfunction. Neuropathy BPH History of left lower extremity DVT with partial occlusion. At left posterior tibial pain. History of recent rectal bleed Not on full anticoagulation secondary to above. Had workup with GI. Latest note on April 19, 2017 advised for heparin prophylactic dose subcutaneous. Severe esophagitis class D. By EGD on April 18, 20172017. On PPI, sucralfate. 1 unit of PRBC and April 19 2017. Orthostatic hypotension secondary to high dose diuretic use on April 20, 2017. Workup with CT, carotid ultrasound, echo negative. Occasional diarrhea. Stool studies negative. C. difficile negative. Plan: Admit patient to medicine. Telemetry monitoring. Clear liquid diet. Abdomen x-ray KUB. Ultrasound of the abdomen. Continue oxygen supplementation. Continue nebulizer treatments. Discontinue Zosyn. Start patient on cefepime 2 g IV every 12 hours to cover for both pneumonia and Escherichia coli UTI which is sensitive to this. Will follow new cultures. Ultrasound guided thoracocentesis today now. Will send pleural fluid cultures and cell counts etc. Continue salt tablets for hyponatremia. So far, I have not found out the reason why patient is on salt tablets. Would need to review EMR further and also discuss with further on this. Review meds from rehabilitation. Orders written. DVT prophylaxis with heparin. GI prophylaxis on pantoprazole. Palliative care to follow patient while in hospital. Code Status DNR. Patient was seen by palliative care team. Discussed Condition With patient, his , rehabilitation physician, medical team PA Physician Certification 2 Midnight Certification Type: Admission for Inpatient Services Order for Inpatient Services The services are ordered in accordance with Medicare regulations or non- Medicare payer requirements, as applicable. In the case of services not specified as inpatient-only, they are appropriately provided as inpatient services in accordance with the 2-midnight benchmark. Estimated LOS (days): 4 days is the estimated time the patient will need to remain in the hospital, assuming treatment plan goals are met and no additional complications. Post-Hospital Plan: Not yet determined Smith Arguello MD Apr 26, 2017 16:36
[2017-04-26 16:49] VITALS: BP 159/69; PULSE 88; RESP 20; TEMP 98.6; O2SAT 93
[2017-04-26] MEDS: metroNIDAZOLE 500 MG INJ 100 ML IV SCH ×2 (17:00→22:21)
[2017-04-26] MEDS: SODIUM CHLORIDE 1 GRAM TAB PO SCH (17:03)
[2017-04-26] MEDS: LACTOBACILLUS ACIDOPHILUS TAB PO SCH (17:03)
[2017-04-26] MEDS: SUCRALFATE 1 GM TAB PO SCH ×2 (17:03→22:09)
[2017-04-26] MEDS: FUROSEMIDE 20 MG TAB PO SCH (17:03)
[2017-04-26] MEDS: HEPARIN SODIUM - SQ 10,000 UNITS/ML VIAL SQ SCH ×2 (17:03→22:21)
[2017-04-26 17:04] VITALS: O2SAT 91
[2017-04-26] MEDS: CEFEPIME INJ 2,000 MG in SODIUM CHLORIDE 0.9% INJ 100 ML IV SCH (17:04)
[2017-04-26] MEDS: INSULIN ASPART SUPPLEMENTAL SCALE SQ SCH ×2 (17:04→21:00)
[2017-04-26] MEDS: RESP: ALBUTEROL 2.5 MG/IPRATROPIUM 0.5 MG NEB (PRN) NEB (17:04)
[2017-04-26] MEDS: ALPRAZolam 0.5 MG TAB PO PRN (18:23)
[2017-04-26] MEDS: RESP: ALBUTEROL 2.5 MG/IPRATROPIUM 0.5 MG NEB (SCH) NEB (19:16)
[2017-04-26 20:00] VITALS: BP 143/64; PULSE 91; PULSE 98; RESP 19; TEMP 102.6; O2SAT 95
[2017-04-26] MEDS ORDERED: PREGABALIN 100 MG CAP PO SCH (21:00)
[2017-04-26] MEDS: SODIUM CHLORIDE 0.9% FLUSH 10 ML FLUSH IV FLUSH SCH ×2 (21:00)
[2017-04-26] MEDS ORDERED: IBUPROFEN 600 MG TAB PO ONE (21:30)
[2017-04-26] MEDS ORDERED: ACETAMINOPHEN 325 MG TAB PO ONE (21:45)
[2017-04-26] MEDS: MONTELUKAST SODIUM 10 MG TAB PO SCH (22:07)
[2017-04-26] MEDS: POTASSIUM CHLORIDE 20 MEQ CONTROLLED RELEASE TAB PO SCH (22:07)
[2017-04-26] MEDS: PANTOPRAZOLE SOD 40 MG DELAYED RELEASE TAB PO SCH (22:07)
[2017-04-26] MEDS: hydrALAZINE HCL 25 MG TAB PO SCH (22:08)
[2017-04-26] MEDS: ZOLPIDEM TARTRATE 5 MG TAB PO PRN (22:09)
[2017-04-26] MEDS: FERROUS SULFATE 325 MG (65 MG ELEMENTAL IRON) TAB PO SCH (22:09)
[2017-04-26] MEDS: BUDESONIDE-FORMOTEROL 160/4.5 MCG INHALER INH SCH (22:11)
[2017-04-26] MEDS: LEVOBUNOLOL HCL 0.5% OPHT SOLN 5 ML BTL EACH EYE SCH (22:13)
[2017-04-26] MEDS: LATANOPROST 0.005% OPHT SOLN 2.5 ML BTL LEFT EYE SCH (22:13)
[2017-04-26] MEDS: ZINC OXIDE 40% OINT 60 GM TUBE TOPICAL SCH (22:14)
[2017-04-26] MEDS: AQUAPHOR OINT 50 GM TUBE TOPICAL SCH (22:14)
[2017-04-26] MEDS: BENZONATATE 100 MG CAP PO PRN (22:20)
--- NOTE | 2017-04-26 23:46 | MB ---
cc: Jesus Webb MD, Joseph D MD DATE OF CONSULT: 04/26/17 REASON FOR CONSULTATION: Inflamed gallbladder HISTORY OF PRESENT ILLNESS: This is a pleasant elderly gentleman, who was in the hospital earlier this month with new onset congestive heart failure and hypokalemia, who was in the hospital for some time and then went to rehab. He was doing well in rehab, but then recently began becoming more sedate and weak and unable to participate in his rehab activities and so he was subsequently transferred back to the hospital. During the evaluation to see why he had a decline in his medical status, imaging studies were done, which showed inflammation and fluid around the gallbladder. Surgery was consulted to place an opinion on treatment of this elderly gentleman. The patient denies any gallbladder symptoms. He said he does not really have any abdominal pain. He was just having shortness of breath. Right before I saw him, he had just come back from Radiology, where he had a thoracentesis placed. From my understanding, he had a fair amount of fluid drained from his chest on the right side. PAST MEDICAL HISTORY: Significant for neuropathy. He has had a subdural hematoma, sleep apnea, has a CPAP. He had gastric bypass a few years back. He has chronic back pain. He had some orthopedic surgery in the past. Recently found to have coronary artery disease. Also has severe esophagitis. Recently had an EGD showing esophagitis. PHYSICAL EXAMINATION GENERAL: He is sleepy. He is able to converse with me. He does not complain of any pain. He is on oxygen. NECK: Supple. CHEST: Clear.with a cough ABDOMEN: He denies any abdominal distention or tender, but when I push very hard, he does have some mild soreness in the right upper quadrant. He has laparoscopic scars from gastric bypass. EXTREMITIES: Mild edema, bilateral lower extremities. NEUROLOGIC: He is somewhat sleepy, but able to converse with me. LABORATORY DATA: He had a white count of 4, H and H of 8 and 27. Chemistry showed a BNP of 166. His LFTs are all slightly elevated. total bilirubin is slightly elevated. IMAGING STUDIES: Ultrasound shows cholelithiasis, no evidence of biliary obstruction, small amount of ascites around the liver and spleen. He had a chest x-ray with the thoracentesis. He had a CT angio a couple weeks ago. He had compressive atelectasis at that time, with some pleural effusions. He also has urinary tract infection that is being treated. ASSESSMENT: A 81 year-old ill gentleman, who has pneumonia. At this time, he is also being treated for a urinary tract infection. He recently developed congestive heart failure. He has a pleural effusion that was recently drained today. He has gallstones that are mildly symptomatic. PLAN: At this time, I think we ought to treat him medically with antibiotics. If he does not progress, then consider a cholecystotomy tube. I am not sure he is well enough to undergo surgery at this point. This was discussed with the patient and, I believe, he understood our discussion. We will follow along during this admission. If he perks up, then we could proceed later in the week with a cholecystectomy. If he kind of somewhat smolders, then I would favor putting a cholecystotomy tube in to decompression his gallbladder until he becomes a little stronger. Jesus Webb MD JÁNGELA// , 10:51 PM , 11:20 PM ABDIFATAH
[2017-04-26 23:59] VITALS: PULSE 93
[2017-04-27] VITALS (14 sets, daily range): BP systolic 142–176; BP diastolic 65–76; PULSE 82–96; RESP 16–24; TEMP 96–100.9; O2SAT 93–98
[2017-04-27] MEDS: RESP: ALBUTEROL 2.5 MG/IPRATROPIUM 0.5 MG NEB (PRN) NEB (02:06)
[2017-04-27] MEDS: CEFEPIME INJ 2,000 MG in SODIUM CHLORIDE 0.9% INJ 100 ML IV SCH ×2 (04:36→16:59)
[2017-04-27] MEDS: metroNIDAZOLE 500 MG INJ 100 ML IV SCH ×3 (04:36→16:52)
[2017-04-27] MEDS: SODIUM CHLORIDE 0.9% FLUSH 10 ML FLUSH IV FLUSH SCH ×4 (07:06→22:17)
[2017-04-27] MEDS: INSULIN ASPART SUPPLEMENTAL SCALE SQ SCH ×4 (07:40→21:00)
[2017-04-27] MEDS: RESP: ALBUTEROL 2.5 MG/IPRATROPIUM 0.5 MG NEB (SCH) NEB ×3 (07:52→19:37)
[2017-04-27] MEDS: SODIUM CHLORIDE 1 GRAM TAB PO SCH ×3 (08:19→17:00)
[2017-04-27] MEDS: hydrALAZINE HCL 25 MG TAB PO SCH ×2 (08:19→21:00)
[2017-04-27] MEDS: PREGABALIN 25 MG CAP PO SCH ×2 (08:19→21:00)
[2017-04-27] MEDS: FERROUS SULFATE 325 MG (65 MG ELEMENTAL IRON) TAB PO SCH ×2 (08:19→21:00)
[2017-04-27] MEDS: SUCRALFATE 1 GM TAB PO SCH ×4 (08:19→21:00)
[2017-04-27] MEDS: POTASSIUM CHLORIDE 20 MEQ CONTROLLED RELEASE TAB PO SCH ×2 (08:20→21:00)
[2017-04-27] MEDS: LACTOBACILLUS ACIDOPHILUS TAB PO SCH ×3 (08:20→17:00)
[2017-04-27] MEDS: FUROSEMIDE 20 MG TAB PO SCH ×2 (08:20→17:00)
[2017-04-27] MEDS: TAMSULOSIN HCL 0.4 MG CAP PO SCH (08:20)
[2017-04-27] MEDS: PANTOPRAZOLE SOD 40 MG DELAYED RELEASE TAB PO SCH ×2 (08:20→21:00)
[2017-04-27] MEDS: HEPARIN SODIUM - SQ 10,000 UNITS/ML VIAL SQ SCH ×3 (08:21→22:29)
[2017-04-27] MEDS: BUDESONIDE-FORMOTEROL 160/4.5 MCG INHALER INH SCH ×2 (08:24→22:25)
[2017-04-27] MEDS: prednisoLONE ACETATE 1% OPHT SUSP 5 ML BTL RIGHT EYE SCH (08:24)
[2017-04-27] MEDS: LEVOBUNOLOL HCL 0.5% OPHT SOLN 5 ML BTL EACH EYE SCH ×2 (08:24→22:26)
[2017-04-27] MEDS: AQUAPHOR OINT 50 GM TUBE TOPICAL SCH ×2 (08:25→22:18)
[2017-04-27] MEDS: ZINC OXIDE 40% OINT 60 GM TUBE TOPICAL SCH ×2 (08:25→22:19)
[2017-04-27 09:14] LABS: AUTOMATED NEUTROPHIL # 4.5 TH/MM3 (1.8-7.7); BASOPHIL # 0.1 TH/MM3 (0-0.2); BASOPHIL % 1.1 % (0.0-2.0); EOSINOPHIL # 0.4 TH/MM3 (0-0.4); EOSINOPHIL % 5.9 % (0.0-4.0); HEMOGLOBIN 8.9 GM/DL (13.0-17.0); LYMPH % 18.2 % (9.0-44.0); LYMPHOCYTE # 1.2 TH/MM3 (1.0-4.8); MEAN CORPUSCULAR HGB CONC 32.8 % (32.0-36.0); MEAN PLATELET VOLUME 9.3 FL (7.0-11.0); MONO % 4.3 % (0.0-8.0); MONOCYTE # 0.3 TH/MM3 (0-0.9); NEUT % 70.5 % (16.0-70.0); PLATELET COUNT 315 TH/MM3 (150-450); RED BLOOD COUNT 4.03 MIL/MM3 (4.50-5.90); RED CELL DISTRIBUTION WIDTH 21.3 % (11.6-17.2); WHITE BLOOD COUNT 6.3 TH/MM3 (4.0-11.0)
[2017-04-27 09:28] LABS: BICARBONATE 23.1 MEQ/L (21.0-32.0); CALCIUM 8.4 MG/DL (8.5-10.1); CREATININE 0.99 MG/DL (0.60-1.30)
[2017-04-27] MEDS: ALPRAZolam 0.5 MG TAB PO PRN (12:39)
[2017-04-27] MEDS: BENZONATATE 100 MG CAP PO PRN (13:31)
--- NOTE | 2017-04-27 15:01 | HHI.PR ---
Subjective Remarks Follow-up for pneumonia, possible cholecystitis. Patient is currently resting in bed. No acute concerns. Denies any abdominal pain, fever or chills. He continues to cough. Objective Vitals Vital Signs Date Time Temp Pulse Resp B/P (MAP) Pulse Ox O2 Delivery O2 Flow Rate FiO2 04/27/17 11:20 Nasal Cannula 4.00 04/27/17 08:00 97.7 88 20 167/72 (103) 98 04/27/17 07:54 97 Nasal Cannula 4.00 04/27/17 07:41 88 04/27/17 04:00 Nasal Cannula 4.00 94 04/27/17 04:00 98.3 82 16 156/71 (99) 94 04/27/17 03:43 93 04/27/17 02:11 94 Nasal Cannula 4.00 04/27/17 00:00 Nasal Cannula 4.00 92 04/27/17 00:00 100.9 90 18 142/65 (90) 93 04/26/17 23:59 93 04/26/17 21:00 Nasal Cannula 4.00 92 04/26/17 20:00 98 04/26/17 20:00 102.6 91 19 143/64 (90) 95 04/26/17 17:04 91 Nasal Cannula 4.00 04/26/17 16:49 98.6 88 20 159/69 (99) 93 04/26/17 16:10 86 23 163/67 (99) 95 04/26/17 15:55 98.2 89 22 155/68 (97) 94 I/O 04/26/17 04/26/17 04/26/17 04/27/17 04/27/17 04/27/17 07:00 15:00 23:00 07:00 15:00 23:00 Intake Total 300 ml 100 ml Output Total 1600 ml 1200 ml Balance -1300 ml -1100 ml IV Total 300 ml 100 ml Output Urine Total 1600 ml 1200 ml # Voids 4 # Bowel Movements 1 4 Result Diagram: 04/27/1740 04/27/17 0740 Objective Remarks GENERAL: Alert, NAD. SKIN: Warm and dry. HEAD: Normocephalic. EYES: No scleral icterus. No injection or drainage. NECK: Supple, trachea midline. No JVD or lymphadenopathy. CARDIOVASCULAR: Regular rate and rhythm without murmurs, gallops, or rubs. RESPIRATORY: Breath sounds equal bilaterally. No accessory muscle use. GASTROINTESTINAL: Abdomen soft, non-tender, nondistended. MUSCULOSKELETAL: No cyanosis, or edema. BACK: Nontender without obvious deformity. No CVA tenderness. Procedures None A/P Problem List: (1) Cholecystitis ICD Code: K81.9 - Cholecystitis, unspecified (2) Pneumonia ICD Code: J18.9 - Pneumonia, unspecified organism (3) UTI (urinary tract infection) ICD Code: N39.0 - Urinary tract infection, site not specified Assessment and Plan Mr. Montaño is a pleasant 81-year-old male with a history of congestive heart failure (diastolic) who was transferred from [facility] to the medical floor due to cholecystitis, pneumonia and UTI. Patient was evaluated by general surgery who recommended medical treatment at this point. -Acute cholecystitis -Right lung pneumonia -Urinary tract infection -urine culture from 04/19/2017 shows E. coli -Patient is currently on cefepime 2 g every 12 hours as well as metronidazole 500 mg every 6 hours. -Right lung pneumonia is a possible aspiration pneumonia. -Will continue Cefepime and Flagyl for now. -Continue DuoNeb, Symbicort. - Left pleural effusion - s/p thoracentesis. 300mL were taken off. Appears to be transudative. - Hypertension - Diastolic congestive heart failure - Continue Amlodipine 10mg Qday, hydralazine 25 mg p.o. twice daily, Lasix 20 mg p.o. twice daily Full code. Heparin SQ. Marina Henry DO Apr 27, 2017 15:01
--- NOTE | 2017-04-27 15:55 | HHI.PR ---
cc: Tani Carmona MD Subjective Subjective Notes DAILY PROGRESS NOTE FOR SURGICAL ATTENDING, DR. TANI CARMONA still feels the same coughing alot not much abd pain Objective Vitals/I&O Vital Signs Date Time Temp Pulse Resp B/P (MAP) Pulse Ox O2 Delivery O2 Flow Rate FiO2 04/27/17 12:00 96.0 93 20 149/65 (93) 97 04/27/17 11:20 Nasal Cannula 4.00 04/27/17 04:00 94 Labs Laboratory Tests Test 04/27/17 07:40 White Blood Count 6.3 Red Blood Count 4.03 Hemoglobin 8.9 Hematocrit 27.0 Mean Corpuscular Volume 67.0 Mean Corpuscular Hemoglobin 22.0 Mean Corpuscular Hemoglobin Concent 32.8 Red Cell Distribution Width 21.3 Platelet Count 315 Mean Platelet Volume 9.3 Neutrophils (%) (Auto) 70.5 Lymphocytes (%) (Auto) 18.2 Monocytes (%) (Auto) 4.3 Eosinophils (%) (Auto) 5.9 Basophils (%) (Auto) 1.1 Neutrophils # (Auto) 4.5 Lymphocytes # (Auto) 1.2 Monocytes # (Auto) 0.3 Eosinophils # (Auto) 0.4 Basophils # (Auto) 0.1 CBC Comment DIFF FINAL Differential Comment Blood Urea Nitrogen 12 Creatinine 0.99 Random Glucose 139 Calcium Level 8.4 Sodium Level 130 Potassium Level 3.9 Chloride Level 99 Carbon Dioxide Level 23.1 Anion Gap 8 Estimat Glomerular Filtration Rate 73 Date/Time Source Procedure Growth Status 04/26/17 22:45 Blood Peripheral Aerobic Blood Culture - Preliminary NO GROWTH IN 1 DAY Resulted 04/26/17 22:45 Blood Peripheral Anaerobic Blood Culture - Preliminary NO GROWTH IN 1 DAY Resulted Lungs: Upper airway course sound, Rhonchi Abdomen: Non-distended, Non-tender (soreness with very deep palpation right upper quadrant) A/P Problem List: (1) Gallstones ICD Codes: K80.20 - Calculus of gallbladder without cholecystitis without obstruction (2) Weakness ICD Codes: R53.1 - Weakness (3) Cholecystitis ICD Codes: K81.9 - Cholecystitis, unspecified Status: Chronic (4) Generalized muscle weakness ICD Codes: M62.81 - Muscle weakness (generalized) Status: Chronic (5) UTI (urinary tract infection) ICD Codes: N39.0 - Urinary tract infection, site not specified Status: Chronic (6) CHF (congestive heart failure) ICD Codes: I50.9 - Heart failure, unspecified Status: Chronic (7) HTN (hypertension) ICD Codes: I10 - Essential (primary) hypertension Status: Chronic (8) Bilateral pneumonia ICD Codes: J18.9 - Pneumonia, unspecified organism Status: Acute (9) Pneumonia ICD Codes: J18.9 - Pneumonia, unspecified organism Status: Acute (10) History of gastric bypass ICD Codes: Z98.84 - Bariatric surgery status (11) Chronic illness ICD Codes: R69 - Illness, unspecified Assessment and Plan 81-year-old gentleman who has numerous medical issues including pneumonia recently treated UTI generalized malaise and inability to progress in rehabilitation now with possible aspiration pneumonia pneumonia. He has cholelithiasis with mild cholecystitis I would favor treating nonoperatively. Discussed with the medical team Continue antibiotic therapy to treat his infections If he doesn't progress or becomes more symptomatic with his biliary tree then cholecystotomy would be indicated Attending Statement NOTE FOR SURGICAL ATTENDING, DR. TANI CARMONA I attest that I had a [id number] encounter with the patient on the same day, and personally performed and documented my assessment and findings in the medical record. The following services were provided during this hospital visit: Chart data review, vital sign assessments/reviewing monitor data Review of consultations notes if present. Medication orders/review and/or management Ordering and/or reviewing lab tests Ordering and/or interpreting/reviewing x-rays and/or diagnostic studies Care of the patient and discussion of the patient with the care team Documentation time To help prompt me to consider important information that might be impacting today's encounter and assessment, information from prior notes written by myself or my colleagues may have been "brought forward/copy and pasted" into today's note. Tani Carmona MD Apr 27, 2017 15:55
--- NOTE | 2017-04-27 18:31 | PD.ID.CON ---
History of Present Illness Service ID Consult Requested By Dr Arguello Reason for Consult UTI cholecystitis PNA Primary Care Physician No Primary Care Physician Diagnoses: History of Present Illness 81 yo male with multiple med problems was admitted from rehab where he was 2.5 wks with cough, SOB He also has low WBC which improved today His w/u showed RLL infiltrate, and gallstones with thickened gallbladder wall Dr Watts recommended medical mangement Pt is on cefepime and flagyl sp thoracocenthesis - negative @ 24 hrs blood clx negative @ 24 hrs sp E.coli UTI tx - repeat UA negative Review of Systems ROS Limitations: Clinical Condition (dementia), Poor Historian Past Family Social History Allergies: Coded Allergies: *MDRO Multi-Drug Resistant Organism (Verified Adverse Reaction, Unknown, ) 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 Social History Smokes cigars. No history of alcohol abuse or drug abuse. Physical Exam Vital Signs Vital Signs Date Time Temp Pulse Resp B/P (MAP) Pulse Ox O2 Delivery O2 Flow Rate FiO2 04/27/17 16:00 97.7 96 24 176/70 (105) 98 04/27/17 12:00 96.0 93 20 149/65 (93) 97 04/27/17 11:20 Nasal Cannula 4.00 04/27/17 08:00 97.7 88 20 167/72 (103) 98 04/27/17 07:54 97 Nasal Cannula 4.00 04/27/17 07:41 88 04/27/17 04:00 Nasal Cannula 4.00 94 04/27/17 04:00 98.3 82 16 156/71 (99) 94 04/27/17 03:43 93 04/27/17 02:11 94 Nasal Cannula 4.00 04/27/17 00:00 Nasal Cannula 4.00 92 04/27/17 00:00 100.9 90 18 142/65 (90) 93 04/26/17 23:59 93 04/26/17 21:00 Nasal Cannula 4.00 92 04/26/17 20:00 98 04/26/17 20:00 102.6 91 19 143/64 (90) 95 Physical Exam CONSTITUTIONAL/GENERAL: This is an adequately nourished patient, in distress 2 /2 constant dry cough coughing up clear sputum TUBES/LINES/DRAINS: SKIN: No jaundice, rashes, or lesions. Skin temperature appropriate. Not diaphoretic. HEAD: Atraumatic. Normocephalic. EYES: Pupils equal and round and reactive. Extraocular motions intact. No scleral icterus. No injection or drainage. Fundi not examined. ENT: Hearing grossly normal. Nose without bleeding or purulent drainage. Throat without visible erythema, exudates, masses, or lesions. NECK: Trachea midline. Supple, nontender. CARDIOVASCULAR: Regular rate and rhythm without murmurs, gallops, or rubs. No JVD. Peripheral pulses symmetric. RESPIRATORY/CHEST: Symmetric, unlabored respirations. scattered rhonchi to auscultation. Breath sounds equal bilaterally. GASTROINTESTINAL: Abdomen soft, non-tender, nondistended. No hepato-splenomegaly , or palpable masses. No guarding. Bowel sounds present. GENITOURINARY: Without palpable bladder distension. MUSCULOSKELETAL: Extremities without clubbing, cyanosis, or edema. No joint tenderness or effusion noted. No calf tenderness. No mottling or clubbing. LYMPHATICS: No palpable cervical or supraclavicular adenopathy. NEUROLOGICAL: Awake and alert. Motor and sensory grossly within normal limits. Not follows commands consistently . Incoherent speech . Moves all extremities. PSYCHIATRIC: not agitated Laboratory Laboratory Tests Test 04/27/17 07:40 White Blood Count 6.3 Red Blood Count 4.03 Hemoglobin 8.9 Hematocrit 27.0 Mean Corpuscular Volume 67.0 Mean Corpuscular Hemoglobin 22.0 Mean Corpuscular Hemoglobin Concent 32.8 Red Cell Distribution Width 21.3 Platelet Count 315 Mean Platelet Volume 9.3 Neutrophils (%) (Auto) 70.5 Lymphocytes (%) (Auto) 18.2 Monocytes (%) (Auto) 4.3 Eosinophils (%) (Auto) 5.9 Basophils (%) (Auto) 1.1 Neutrophils # (Auto) 4.5 Lymphocytes # (Auto) 1.2 Monocytes # (Auto) 0.3 Eosinophils # (Auto) 0.4 Basophils # (Auto) 0.1 CBC Comment DIFF FINAL Differential Comment Blood Urea Nitrogen 12 Creatinine 0.99 Random Glucose 139 Calcium Level 8.4 Sodium Level 130 Potassium Level 3.9 Chloride Level 99 Carbon Dioxide Level 23.1 Anion Gap 8 Estimat Glomerular Filtration Rate 73 Date/Time Source Procedure Growth Status 04/26/17 22:45 Blood Peripheral Aerobic Blood Culture - Preliminary NO GROWTH IN 1 DAY Resulted 04/26/17 22:45 Blood Peripheral Anaerobic Blood Culture - Preliminary NO GROWTH IN 1 DAY Resulted Result Diagram: 04/27/17 0740 04/27/17 0740 Assessment and Plan Assessment and Plan Calculous cholecystitis - seen by surgeon, med mngmnt recommended RLL PNA - + cough, SOB E.coli UTI - sp tx repeat UA negative Leukopenia - resolved zosyn dc cefepime, flagyl chk sputum clx fu BC fu pleural fluid clx Discussed Condition With Kate Delacruz MD Apr 27, 2017 18:31
--- NOTE | 2017-04-27 19:38 | PD.CONS ---
Consult Service Palliative Care . Consult Requested By Dr. Henry . Primary Care Physician No Primary Care Physician . Reason for Consultation a. To assist with evaluation and management of symptoms including: pain, dyspnea, debility b. To assist medical decision maker(s) with: better understanding of current medical conditions; weighing benefits/burdens of medical treatment options; making medical treatment decisions. . HPI History of Present Illness Palliative care is familiar with this patient s/p initial consultation on before patient was transfected back to med/surg for medical management of pneumonia, possible cholecystis. Mr. Montaño is a 81-year-old male with diabetes mellitus, previous subdural hematoma, GIB, GE junction ulcer, obesity, neuropathy, hyperlipidemia, hypertension, BPH, chronic back pain, asthma and ISIDORO on CPAP at night, status post Jo Ann-en-Y gastric bypass who presented to [facility] ED on 04/06/2017 complaining of weakness, shortness of breath, cough, and chest pain for 2-3 weeks. His reported to the ED provider that the patient had received several courses of antibiotics over the previous few weeks without improvement of his recent illness. He was subsequently admitted for new onset CHF with BNP of 262, bilateral pneumonia as well as hypokalemia and was treated with IV antibiotics and diuretics. His troponin was negative 3 at 0.02. Echocardiogram showed EF 50-55%. EKG showed sinus rhythm and this was stable compared to last EKG. Patient remained hospitalized until 04/09/2017 at which time the patient was transferred to [facility] for inpatient rehabilitation. Follow-up chest x-ray on 04/10/2017 showing persistent bilateral lobe infiltrates and consolidation; patient is afebrile and has completed course of IV antibiotics. He has had of diarrhea over multiple days x 2 since going to rehab - C. difficile negative on 04/11/2017 and 04/20/2017. Mr. Montaño reported LLE pain on 04/16/17. Doppler showing partial occluded DVT of the left posterior tibial vein on 04/16/17. CTA negative for PE. Given GI bleed , GI was consulted to determine if the patient was a candidate for anticoagulation. Patient having no obvious signs of bleeding. Denied melena, rectal bleeding, nausea, vomiting or abdominal pain. He had EGD at [facility] on 03/[address] Garsia and was found to have GE junction ulcer with stigmata, s/p coagulation with gold probe. EGD on 04/19/17 showed severe esophagitis. Patient was started on anticoagulation; recommendations to follow-up with GI upon discharge. On 04/20/2017 while doing therapy, the patient became diaphoretic, pale and hypotensive with systolic pressure in the 80s. Heart rate was 70 with oxygen saturation of approximately 90%. Subsequent carotid artery ultrasound showed mild bilateral plaque formation with hemodynamic profile characteristic of less than 50% stenosis. CT head revealed microvascular ischemic demyelinative change. No acute intracranial abnormalities were noted. Patient was unable to participate in therapy x 2 days s/p blood transfusion with 1 unit of leukocyte reduced RBCs secondary to decreased H/H at 7.7/23.5. Urine culture-positive Escherichia coli sensitive to Zosyn. Patient's weight is stable, tolerating a full liquid diet. Peripheral edema is resolving with diuresing; oxygen saturations stable on 3 L via nasal cannula. Patient remains on scheduled respiratory treatments and incentive spirometer. He had a fever yesterday with T-max 101.0 and hypertension; he was restarted on hydralazine. Blood cultures remain negative today. Yesterday, the patient verbalized a desire to change his CODE STATUS and concerns related to medical/rehab treatment goals moving forward. The patient stated he was tired and he did not want to be on a lot of medications. He also stated that he had not discussed his feelings with his and we was concerned that she would be very upset when she found out. Later in the day the patient's brought in a copy of patient's living will. Per review of notes, at that time the patient and his stated they wanted everything done including CPR, ACLS medications and shock but did not want intubation or mechanical ventilation. Chest x-ray on 04/25/2017 showing persistent bibasilar pleural-parenchymal opacities representing small to moderate sized bilateral pleural effusions with associated volume loss and/or consolidation in the lower lung zones. Overall appearance could be secondary to pulmonary edema. Palliative Care was consulted to assist with symptom management and to discuss with the patient/family the benefits and burdens of his current illnesses and the options regarding future care. 04/27/17: Patient continues to complain of cough. Abdominal discomfort has resolved somewhat. Ultrasound showed cholelithiasis. There was no evidence of biliary obstruction, a small amount of ascites was noted around the liver and spleen. He had a chest x-ray with thoracentesis with 300 mL's of clear, yellow fluid removed. General surgery saw the patient and management was recommended at this time. Infectious disease is following secondary to cholecystitis, right lower lobe pneumonia and E. coli UTI status post treatment with antibiotics. Leukopenia has resolved. Patient remains on Zosyn. Recommendations to follow up on cultures and monitor lab work. . Function/Cognitive Trajectory Prior to hospitalization to February, patient was able to ambulate with a walker for short distances in his house and required assistance with ADLs. In February the patient was hospitalized with a GIB; he was also ill with flulike symptoms for 2-3 weeks before being hospitalized on 04/06/17. During that time the patient became increasingly weak and was unable to ambulate a few feet from the toilet to the shower per 's report. The patient was discharged to [facility] inpatient rehab on 04/09/2016. After 10 days of rehabilitation, the patient remains deconditioned with increased weakness and limited mobility secondary to disease progression. He has limited ability to care for himself as well as impairments in cognition/judgment. . Review of Systems Constitutional: COMPLAINS OF: Fatigue, Weight loss ( reports a 10 pound weight loss since February,), Pain, Generalized weakness Respiratory: COMPLAINS OF: Cough, Shortness of breath Cardiovascular: COMPLAINS OF: Lower Extremity Edema Gastrointestinal: DENIES: Black stools, Bloody stools, Vomiting blood Hematologic/Lymphatics: COMPLAINS OF: Bruising, History of transfusions Neurologic: COMPLAINS OF: Abnormal gait, Poor Balance Psychiatric: COMPLAINS OF: Confusion Past Family Social History Coded Allergies: *MDRO Multi-Drug Resistant Organism (Verified Adverse Reaction, Unknown, ) 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 Suspect diastolic dysfunction. Neuropathy BPH History of left lower extremity DVT with partial occlusion. At left posterior tibial pain. History of recent rectal bleed Not on full anticoagulation secondary to above. Had workup with GI. Latest note on April 19, 2017 advised for heparin prophylactic dose subcutaneous. Severe esophagitis class D. By EGD on April 18, 20172017. On PPI, sucralfate. 1 unit of PRBC and April 19 2017. Escherichia coli UTI Fever Orthostatic hypotension secondary to high dose diuretic use on April 19, 2017. Workup with CT, carotid ultrasound, echo negative. Occasional diarrhea. Stool studies negative. C. difficile negative. Past Surgical History Per EMR: Colonoscopy Endoscopist Gastric bypass Hemorrhoidectomy Circumcision Vasectomy Left wrist repair Right ORIF femur Right knee repair Reported Medications Reported Carafate (Sucralfate) 1 Gram Tab 1 Gm PO BID On empty stomach Xanax (Alprazolam) 1 Mg Tab 1 Mg PO BID PRN Ambien (Zolpidem Tartrate) 10 Mg Tab 10 Mg PO HS Levobunolol Opth Drops (Levobunolol HCl) 0.5% Drops 1 Drop EACH EYE BID Pred Forte Opth 1% (Prednisolone Acetate Opth 1%) 1% Susp 1 Drop RIGHT EYE DAILY Travatan Z Opth Drops (Travoprost) 0.004 % Soln 1 Drop LEFT EYE HS Tramadol (Tramadol HCl) 50 Mg Tab 100 Mg PO Q4-6H PRN Sodium Chloride 1 Gram Tab 1 Gm PO TID Lyrica (Pregabalin) 100 Mg Cap 100 Mg PO BID Singulair (Montelukast Sodium) 10 Mg Tab 10 Mg PO DAILY Tamsulosin (Tamsulosin HCl) 0.4 Mg Cap 0.4 Mg PO DAILY Crestor (Rosuvastatin Calcium) 5 Mg Tab 5 Mg PO DAILY . Current Medications Medications (Trade) Dose Ordered Sig/Kailyn Route Start Time Stop Time Status Last Admin (NS Flush) 2 ml UNSCH PRN IV FLUSH 04/26/17 13:45 (NS Flush) 2 ml BID IV FLUSH 04/26/17 21:00 04/27/17 07:06 (Zofran Inj) 4 mg Q6H PRN IVP 04/26/17 13:45 (Heparin Inj) 5,000 units Q8H SQ 04/26/17 16:00 04/27/17 16:59 (Narcan Inj) 0.4 mg UNSCH PRN IV PUSH 04/26/17 13:45 (Lasix) 20 mg BID@09,18 PO 04/26/17 18:00 04/27/17 17:00 (Duoneb Neb) 1 ampule Q6HR WHILE AWAKE NEB NEB 04/26/17 20:00 04/27/17 11:48 (Duoneb Neb) 1 ampule Q2HR NEB PRN NEB 04/26/17 14:30 04/27/17 02:06 (Apresoline) 25 mg Q12HR PO 04/26/17 21:00 04/27/17 08:19 (Protonix) 40 mg Q12HR PO 04/26/17 21:00 04/27/17 08:20 (Carafate) 1 gm ACHS PO 04/26/17 17:00 04/27/17 16:59 (Xanax) 0.5 mg BID PRN PO 04/26/17 14:30 04/27/17 12:39 (Desitin 40% Oint) 1 applic BID TOPICAL 04/26/17 21:00 04/27/17 08:25 (Symbicort 160-4.5 Mcg Inh) 2 puff Q12HR INH 04/26/17 21:00 04/27/17 08:24 (Lactinex) 1 tab TID PO 04/26/17 18:00 04/27/17 17:00 (Ambien) 5 mg HS PRN PO 04/26/17 14:30 04/26/17 22:09 (Ferrous Sulfate) 325 mg BID PO 04/26/17 21:00 04/27/17 08:19 (Norvasc) 10 mg DAILY PO 04/27/17 09:00 04/27/17 08:19 (Pred Forte 1% Opth Susp) 1 drop DAILY RIGHT EYE 04/27/17 09:00 04/27/17 08:24 (Singulair) 10 mg HS PO 04/26/17 21:00 04/26/17 22:07 (Flomax) 0.4 mg DAILY PO 04/27/17 09:00 04/27/17 08:20 (Betagan Liquifilm 0.5%) 1 drop Q12HR EACH EYE 04/26/17 21:00 04/27/17 08:24 (KCl) 40 meq Q12HR PO 04/26/17 21:00 04/27/17 08:20 (Xalatan 0.005% Opth Soln) 1 drop HS LEFT EYE 04/26/17 21:00 04/26/17 22:13 (Aquaphor Oint) 1 applic Q12HR TOPICAL 04/26/17 21:00 04/27/17 08:25 (Sodium Chloride) 1 gm TID PO 04/26/17 18:00 04/27/17 17:00 (D50w (Vial) Inj) 50 ml UNSCH PRN IV PUSH 04/26/17 14:45 (Glucagon Inj) 1 mg UNSCH PRN OTHER 04/26/17 14:45 (NovoLOG SUPPLEMENTAL SCALE) 1 ACHS SLIDING SCALE SQ 04/26/17 17:00 04/26/17 17:04 (NS Flush) 2 ml UNSCH PRN IV FLUSH 04/26/17 16:30 (NS Flush) 2 ml BID IV FLUSH 04/26/17 21:00 04/27/17 07:07 (Narcan Inj) 0.4 mg UNSCH PRN IV PUSH 04/26/17 16:30 (Lyrica) 100 mg Q12HR PO 04/27/17 09:00 04/27/17 08:19 (Tessalon) 200 mg TID PRN PO 04/26/17 21:45 04/27/17 13:31 Piperacillin Sod/ Tazobactam Sod 100 ml @ 200 mls/hr Q6H IV 04/27/17 20:00 . Family History Pending further conversations with patient's family . Substance Use Tobacco: Occasionally smoke 1-2 cigars a year when his son visited but hasn't smoked for 2 years. Alcohol: Occasionally drink alcohol but quit after bypass surgery in 2014. Prescription med abuse: None unknown Illicits: None known . . Psychosocial History Patient has lived in [place] for 50 years. He has 2 adult sons from a previous marriage; one son lives in [place] and the other son lives in [facility]. Patient is currently to Merari; they have been together for 38 years. Mr. Mnotaño worked for [employer], and his worked for the [email or web address] prior to retiring. . Spiritual/Cultural Factors Taoist justa . Living Will: Copy in medical record Health Care Surrogate: Copy in medical record Durable Power of An/Syq 13 Nav/C2 Operator: Copy in medical record Date completed: 11/04/15 . Health Care Surrogate(s): Patient's (Merari Montaño) is designated as the [facility] decision-making. Son, Toño Montaño, is designated as the alternate healthcare surrogate. . Documented care wishes: Written advanced directives were completed on 11/04/2015 and are accessible in both the patient's paper chart and EMR. . Today's verbally stated goals: Aggressive goals up to the point of cardiopulmonary resuscitation. . Family/friends goals: Aggressive goals up to the point of cardiopulmonary resuscitation. . Ethical and Legal Issues No known ethical or legal issues at this time. . Physical Exam Vital Signs Date Time Temp Pulse Resp B/P (MAP) Pulse Ox O2 Delivery O2 Flow Rate FiO2 04/27/17 16:00 97.7 96 24 176/70 (105) 98 04/27/17 15:45 96 04/27/17 12:29 93 04/27/17 12:00 96.0 93 20 149/65 (93) 97 04/27/17 11:20 Nasal Cannula 4.00 04/27/17 08:00 97.7 88 20 167/72 (103) 98 04/27/17 07:54 97 Nasal Cannula 4.00 04/27/17 07:41 88 04/27/17 04:00 Nasal Cannula 4.00 94 04/27/17 04:00 98.3 82 16 156/71 (99) 94 04/27/17 03:43 93 04/27/17 02:11 94 Nasal Cannula 4.00 04/27/17 00:00 Nasal Cannula 4.00 92 04/27/17 00:00 100.9 90 18 142/65 (90) 93 04/26/17 23:59 93 04/26/17 21:00 Nasal Cannula 4.00 92 04/26/17 20:00 98 04/26/17 20:00 102.6 91 19 143/64 (90) 95 . 04/27/17 04/28/17 18:59 06:59 Intake Total 220 ml Output Total 1200 ml Balance -980 ml Intake Oral 120 ml IV Total 100 ml Output Urine Total 1200 ml # Voids 1 . Exam CONSTITUTIONAL/GENERAL: This is an adequately nourished, elderly male patient in no acute distress. TUBES/LINES/DRAINS: PIV 1 SKIN: No jaundice, rashes, or lesions. Generalized pallor. Ecchymoses on upper extremities.Skin temperature appropriate. Not diaphoretic. HEAD: Atraumatic. Normocephalic. EYES: Pupils equal and round and reactive. Extraocular motions intact. No scleral icterus. No injection or drainage. Fundi not examined. ENT: Hearing grossly normal. Nose without bleeding or purulent drainage. T NECK: Trachea midline. Supple, nontender. No palpable thyroid enlargement or nodularity. CARDIOVASCULAR: Regular rate, irregular rhythm. No JVD. Peripheral pulses symmetric. RESPIRATORY/CHEST: Symmetric, unlabored respirations. Breath sounds diminished bilaterally. No wheezes, rales, or rhonchi. + Cough GASTROINTESTINAL: Abdomen soft, non-tender, nondistended. No guarding. Bowel sounds present. GENITOURINARY: Without palpable bladder distension. MUSCULOSKELETAL: Extremities without clubbing, cyanosis or mottling. Trace edema in BLE noted. LYMPHATICS: No palpable cervical or supraclavicular adenopathy. NEUROLOGICAL: Awake. Lethargic status post administration of benzodiazepine. Answers simple questions with brief a brief response. Follows commands. PSYCHIATRIC: No obvious anxiety/depression. no apparent hallucinations or other psychotic thought process. . Diagnostic Tests Laboratory Laboratory Tests Test 04/27/17 07:40 White Blood Count 6.3 TH/MM3 (4.0-11.0) Red Blood Count 4.03 MIL/MM3 (4.50-5.90) Hemoglobin 8.9 GM/DL (13.0-17.0) Hematocrit 27.0 % (39.0-51.0) Mean Corpuscular Volume 67.0 FL (80.0-100.0) Mean Corpuscular Hemoglobin 22.0 PG (27.0-34.0) Mean Corpuscular Hemoglobin Concent 32.8 % (32.0-36.0) Red Cell Distribution Width 21.3 % (11.6-17.2) Platelet Count 315 TH/MM3 (150-450) Mean Platelet Volume 9.3 FL (7.0-11.0) Neutrophils (%) (Auto) 70.5 % (16.0-70.0) Lymphocytes (%) (Auto) 18.2 % (9.0-44.0) Monocytes (%) (Auto) 4.3 % (0.0-8.0) Eosinophils (%) (Auto) 5.9 % (0.0-4.0) Basophils (%) (Auto) 1.1 % (0.0-2.0) Neutrophils # (Auto) 4.5 TH/MM3 (1.8-7.7) Lymphocytes # (Auto) 1.2 TH/MM3 (1.0-4.8) Monocytes # (Auto) 0.3 TH/MM3 (0-0.9) Eosinophils # (Auto) 0.4 TH/MM3 (0-0.4) Basophils # (Auto) 0.1 TH/MM3 (0-0.2) CBC Comment DIFF FINAL Differential Comment Blood Urea Nitrogen 12 MG/DL (7-18) Creatinine 0.99 MG/DL (0.60-1.30) Random Glucose 139 MG/DL (74-106) Calcium Level 8.4 MG/DL (8.5-10.1) Sodium Level 130 MEQ/L (136-145) Potassium Level 3.9 MEQ/L (3.5-5.1) Chloride Level 99 MEQ/L (98-107) Carbon Dioxide Level 23.1 MEQ/L (21.0-32.0) Anion Gap 8 MEQ/L (5-15) Estimat Glomerular Filtration Rate 73 ML/MIN (>89) . Result Diagram: 04/27/17 0740 04/27/17 0740 Microbiology Microbiology Date/Time Source Procedure Growth Status 04/26/17 22:45 Blood Peripheral Aerobic Blood Culture - Preliminary NO GROWTH IN 1 DAY Resulted 04/26/17 22:45 Blood Peripheral Anaerobic Blood Culture - Preliminary NO GROWTH IN 1 DAY Resulted 04/26/17 22:10 Blood Peripheral Aerobic Blood Culture - Preliminary NO GROWTH IN 1 DAY Resulted 04/26/17 22:10 Blood Peripheral Anaerobic Blood Culture - Preliminary NO GROWTH IN 1 DAY Resulted . Patient/Family Conference Present at Family Conference: No family at bedside. Met with patient's previously at [facility] rehab. . Assessment and Plan Disease Oriented Problem List: (1) Esophagitis (2) Diabetes mellitus (3) Cholecystitis (4) Hyperlipidemia (5) History of GI bleed (6) CHF (congestive heart failure) (7) UTI (urinary tract infection) (8) Pneumonia (9) HTN (hypertension) (10) ISIDORO on CPAP (11) Deep vein thrombosis (DVT) of left lower extremity (12) BPH (benign prostatic hyperplasia) Symptom Scale: (1) Dyspnea (2) Debility (3) Pain Pertinent Non-Medical Issues Psychosocial:Patient has lived in [place] for 50 years. He has 2 adult sons from a previous marriage; one son lives in [place] and the other son lives in [facility]. Patient is currently to Merari; they have been together for 38 years. Mr. Montaño worked for [employer], and his worked for the [email or web address] prior to retiring. Spiritual: Taoist justa Legal: Patient (Merari Montaño) is designated as the [facility] decision-making. Ethical issues impacting care: No know ethical issues impacting care at this time. . Important Contacts Jessica Patel, : [phone] Toño Montaño, son: [phone] . Prognosis Patient is a 81-year-old male with a complex medical history who has had an acute decline in the past 2 months. He was hospitalized in February, with a GI bleed. He returned home after being discharged and experienced flulike symptoms for 2-3 weeks before being be hospitalized on 04/06/2017 with bilateral pneumonia, new onset CHF and hyperkalemia. He was discharged to [facility] inpatient rehab on 04/09/2017. However, his rehabilitation has been inhibited by complications including persistent bibasilar pneumonia, CHF, severe esophagitis status post EGD and UTI. Patient remains severely debilitated and is now being transferred back to [facility] for medical management of pneumonia vs. pulmonary edema. This patient is at risk for ongoing decline, complications and setbacks. . Code Status: No Code Plan * NO CODE * Decision-making: Patient's insight related to his medical conditions was somewhat limited today secondary to lethargy and recent administration of benzodiazepine. Will reassess capacity tomorrow. Patient's (Merari Montaño ) is designated as the [facility] decision-making. Son, Toño Montaño, is designated as the alternate healthcare surrogate. * Written advanced directives were completed on 11/04/2015 and are accessible in both the patient's paper chart and EMR. After reviewing written advanced directives, patient's wishes to honor patient's living will and request that CODE STATUS be changed to NO CODE- DNR/DNI. Conversation witnessed by Summer Villegas, Palliative Care VICE PRESIDENT COMPLIANCE. * Goals: Aggressive up to the point of cardiopulmonary resuscitation. * Palliative care contact information provided to the patient's . * Symptom management: = Dyspnea: Patient having ongoing, intermittent dyspnea. Oxygen saturation in the mid 90s on 2 L via nasal cannula. Patient remains on scheduled respiratory treatments and incentive spirometer. Chest x-ray on 04/25/2017 showing persistent bibasilar pleural-parenchymal opacities representing small to moderate sized bilateral pleural effusions with associated volume loss and/or consolidation in the lower lung zones. Overall appearance could be secondary to pulmonary edema. Status post thoracentesis with 300 mL's clear, yellow fluid removed = Pain: Multifactorial. Patient has a history of chronic back pain. Complains of pain secondary to cough. Currently on Tessalon Perles for cough. No PRN medications are available for pain. = Debility: Patient was able to ambulate with walker within his home and required assistance with ADLs at baseline. He has become increasingly debilitated after being hospitalized 2 times in the past 2 months despite 14+ days of rehabilitation. Patient is high risk for ongoing decline, setbacks and complications. * Palliative care will continue to follow this patient throughout his hospitalization to establish stress, assist with symptom management clarification of medical treatment goals. Thank you for the opportunity to participate in the care of Mr. Montaño. Taylor Lopez Apr 27, 2017 19:38
[2017-04-27] MEDS: MONTELUKAST SODIUM 10 MG TAB PO SCH (21:00)
[2017-04-27] MEDS: ZOLPIDEM TARTRATE 5 MG TAB PO PRN (22:15)
[2017-04-27] MEDS: LATANOPROST 0.005% OPHT SOLN 2.5 ML BTL LEFT EYE SCH (22:24)
[2017-04-27] MEDS: PIPERACIL-TAZO 4.5 GM PREMIX 100 ML IV SCH (22:37)
[2017-04-28] VITALS (10 sets, daily range): BP systolic 162–177; BP diastolic 71–77; PULSE 85–100; RESP 19–20; TEMP 97.1–98.1; O2SAT 91–98
[2017-04-28] MEDS ORDERED: ENALAPRILAT 1.25 MG/ML VIAL IV PUSH ONE (00:30)
[2017-04-28] MEDS: PIPERACIL-TAZO 4.5 GM PREMIX 100 ML IV SCH ×4 (01:01→20:00)
[2017-04-28] MEDS: SUCRALFATE 1 GM TAB PO SCH ×4 (08:00→21:00)
[2017-04-28] MEDS: INSULIN ASPART SUPPLEMENTAL SCALE SQ SCH ×4 (08:00→21:00)
[2017-04-28] MEDS: RESP: ALBUTEROL 2.5 MG/IPRATROPIUM 0.5 MG NEB (SCH) NEB ×3 (08:18→20:15)
[2017-04-28] MEDS: FERROUS SULFATE 325 MG (65 MG ELEMENTAL IRON) TAB PO SCH ×2 (09:00→21:00)
[2017-04-28] MEDS: ZINC OXIDE 40% OINT 60 GM TUBE TOPICAL SCH ×2 (09:00→23:08)
[2017-04-28] MEDS: TAMSULOSIN HCL 0.4 MG CAP PO SCH (09:00)
[2017-04-28] MEDS: SODIUM CHLORIDE 0.9% FLUSH 10 ML FLUSH IV FLUSH SCH ×3 (09:00→23:01)
[2017-04-28] MEDS: POTASSIUM CHLORIDE 20 MEQ CONTROLLED RELEASE TAB PO SCH ×2 (09:00→21:00)
[2017-04-28] MEDS: hydrALAZINE HCL 25 MG TAB PO SCH ×2 (09:00→21:00)
[2017-04-28] MEDS: SODIUM CHLORIDE 1 GRAM TAB PO SCH ×3 (09:00→17:06)
[2017-04-28] MEDS: BUDESONIDE-FORMOTEROL 160/4.5 MCG INHALER INH SCH ×2 (09:00→22:59)
[2017-04-28] MEDS: AQUAPHOR OINT 50 GM TUBE TOPICAL SCH ×2 (09:00→23:07)
[2017-04-28] MEDS: PANTOPRAZOLE SOD 40 MG DELAYED RELEASE TAB PO SCH ×2 (09:00→21:00)
[2017-04-28] MEDS: LACTOBACILLUS ACIDOPHILUS TAB PO SCH ×3 (09:00→17:06)
[2017-04-28] MEDS: HEPARIN SODIUM - SQ 10,000 UNITS/ML VIAL SQ SCH (10:09)
[2017-04-28] MEDS: PREGABALIN 25 MG CAP PO SCH ×2 (10:11→21:00)
[2017-04-28] MEDS: FUROSEMIDE 20 MG TAB PO SCH ×2 (10:16→17:06)
[2017-04-28] MEDS: LEVOBUNOLOL HCL 0.5% OPHT SOLN 5 ML BTL EACH EYE SCH ×2 (10:18→23:00)
[2017-04-28] MEDS: prednisoLONE ACETATE 1% OPHT SUSP 5 ML BTL RIGHT EYE SCH (10:21)
--- NOTE | 2017-04-28 14:53 | HHI.PR ---
Subjective Remarks Follow-up for pneumonia, possible cholecystitis. Patient is more alert today. No fever or chills. is at bedside. is concerned about his diet. I also discussed with patient's and patient regarding his diagnosis of DVT. Objective Vitals Vital Signs Date Time Temp Pulse Resp B/P (MAP) Pulse Ox O2 Delivery O2 Flow Rate FiO2 04/28/17 08:21 98 Nasal Cannula 3.00 04/28/17 08:05 90 04/28/17 08:00 97.9 90 20 162/71 (101) 92 04/28/17 07:15 Nasal Cannula 4.00 04/28/17 04:00 98.0 93 20 176/72 (106) 96 04/28/17 04:00 95 04/28/17 00:00 95 04/27/17 23:59 98.2 95 20 173/76 (108) 95 04/27/17 20:01 92 04/27/17 20:00 Nasal Cannula 4.00 04/27/17 19:40 95 Nasal Cannula 4.00 04/27/17 16:00 97.7 96 24 176/70 (105) 98 04/27/17 15:45 96 I/O 04/27/17 04/27/17 04/27/17 04/28/17 04/28/17 04/28/17 07:00 15:00 23:00 07:00 15:00 23:00 Intake Total 300 ml 220 ml 120 ml Output Total 1600 ml 1200 ml 800 ml Balance -1300 ml -980 ml -680 ml Intake Oral 120 ml 120 ml IV Total 300 ml 100 ml Output Urine Total 1600 ml 1200 ml 800 ml Bladder Scan Volume Amount 432 ml # Voids 4 1 1 # Bowel Movements 4 1 Result Diagram: 04/27/17 0740 04/27/17 0740 Objective Remarks GENERAL: Alert, NAD. SKIN: Warm and dry. HEAD: Normocephalic. EYES: No scleral icterus. No injection or drainage. NECK: Supple, trachea midline. No JVD or lymphadenopathy. CARDIOVASCULAR: Regular rate and rhythm without murmurs, gallops, or rubs. RESPIRATORY: Breath sounds equal bilaterally. No accessory muscle use. GASTROINTESTINAL: Abdomen soft, non-tender, nondistended. MUSCULOSKELETAL: No cyanosis, or edema. BACK: Nontender without obvious deformity. No CVA tenderness. Procedures None A/P Problem List: (1) Cholecystitis ICD Code: K81.9 - Cholecystitis, unspecified Status: Chronic (2) Pneumonia ICD Code: J18.9 - Pneumonia, unspecified organism Status: Acute (3) UTI (urinary tract infection) ICD Code: N39.0 - Urinary tract infection, site not specified Status: Chronic Assessment and Plan Mr. Montaño is a pleasant 81-year-old male with a history of congestive heart failure (diastolic) who was transferred from [facility] to the medical floor due to cholecystitis, pneumonia and UTI. Patient was evaluated by general surgery who recommended medical treatment at this point. -Sepsis (heart rate > 90, RR > 20, known infection - pneumonia, cholecystitis). -Acute cholecystitis -Probable Aspiration pneumonia of right lung. -Urinary tract infection -urine culture from 04/19/2017 shows E. coli -Right lung pneumonia is a possible aspiration pneumonia. -Continue Zosyn per ID recommendations. -IF Patient remains hemodynamically stable and afebrile, we can consider switching antibiotics to oral Augmentin. -Continue DuoNeb, Symbicort. - Left pleural effusion - s/p thoracentesis. 300mL were taken off. Appears to be transudative. - Left lower ext DVT -Doppler ultrasound 04/16/2017 shows left lower extremity DVT. During that time there was concern about upper GI bleed. -I believe patient would benefit from anticoagulation especially since patient is not very ambulatory. -Minimum 3 months, possibly indefinite anticoagulation would be recommended. -I discussed at length with patient and his . They understand the risk and benefit. -We will start patient on apixaban 2.5 mg twice daily. If no complication occurs will increase the dose to 5 mg twice daily. - Hypertension - Diastolic congestive heart failure - Continue Amlodipine 10mg Qday, hydralazine 25 mg p.o. twice daily, Lasix 20 mg p.o. twice daily -Discussed with case management regarding placement to [facility] again. Palliative care is also following. Full code. Heparin SQ. Marina Henry DO Apr 28, 2017 14:53
[2017-04-28] MEDS: ALPRAZolam 0.5 MG TAB PO PRN (14:56)
--- NOTE | 2017-04-28 16:35 | HHI.PR ---
cc: Tani Carmona MD Subjective Subjective Notes DAILY PROGRESS NOTE FOR SURGICAL ATTENDING, DR. TANI CARMONA I like to try something more to eat I am coughing a lot My abdomen does not hurt Objective Vitals/I&O Vital Signs Date Time Temp Pulse Resp B/P (MAP) Pulse Ox O2 Delivery O2 Flow Rate FiO2 04/28/17 08:21 98 Nasal Cannula 3.00 04/28/17 08:05 90 04/28/17 08:00 97.9 20 162/71 (101) 04/27/17 04:00 94 Labs Date/Time Source Procedure Growth Status 04/26/17 22:45 Blood Peripheral Aerobic Blood Culture - Preliminary NO GROWTH IN 2 DAYS Resulted 04/26/17 22:45 Blood Peripheral Anaerobic Blood Culture - Preliminary NO GROWTH IN 2 DAYS Resulted Cardiovascular: Regular Lungs: Upper airway course sound Abdomen: Non-distended, Non-tender, Other (specifically no right upper quadrant pain or midepigastric pain) Extremities: Perfused A/P Problem List: (1) Pneumonia ICD Codes: J18.9 - Pneumonia, unspecified organism Status: Acute (2) Gallstones ICD Codes: K80.20 - Calculus of gallbladder without cholecystitis without obstruction Status: Chronic (3) Weakness ICD Codes: R53.1 - Weakness Status: Chronic (4) Cholecystitis ICD Codes: K81.9 - Cholecystitis, unspecified Status: Chronic (5) Generalized muscle weakness ICD Codes: M62.81 - Muscle weakness (generalized) Status: Chronic (6) UTI (urinary tract infection) ICD Codes: N39.0 - Urinary tract infection, site not specified Status: Chronic (7) CHF (congestive heart failure) ICD Codes: I50.9 - Heart failure, unspecified Status: Chronic (8) HTN (hypertension) ICD Codes: I10 - Essential (primary) hypertension Status: Chronic (9) Bilateral pneumonia ICD Codes: J18.9 - Pneumonia, unspecified organism Status: Acute (10) History of gastric bypass ICD Codes: Z98.84 - Bariatric surgery status (11) Chronic illness ICD Codes: R69 - Illness, unspecified Assessment and Plan 81-year-old gentleman who has numerous medical issues including pneumonia recently treated UTI generalized malaise and inability to progress in rehabilitation now with possible aspiration pneumonia pneumonia. He has cholelithiasis with mild cholecystitis I would favor treating nonoperatively. Discussed with the medical team Continue antibiotic therapy to treat his infections If he doesn't progress or becomes more symptomatic with his biliary tree then cholecystotomy would be indicated He had a speech therapy evaluation which I reviewed I would advance his diet as tolerated His exam is fairly benign for cholecystitis Continue antibiotic treatment for cholecystitis Further treatment of his multiple medical issues per medical team Advance diet no restrictions from general surgery Attending Statement NOTE FOR SURGICAL ATTENDING, DR. TANI CARMONA I attest that I had a [id number] encounter with the patient on the same day, and personally performed and documented my assessment and findings in the medical record. The following services were provided during this hospital visit: Chart data review, vital sign assessments/reviewing monitor data Review of consultations notes if present. Medication orders/review and/or management Ordering and/or reviewing lab tests Ordering and/or interpreting/reviewing x-rays and/or diagnostic studies Care of the patient and discussion of the patient with the care team Documentation time To help prompt me to consider important information that might be impacting today's encounter and assessment, information from prior notes written by myself or my colleagues may have been "brought forward/copy and pasted" into today's note. Tani Carmona MD Apr 28, 2017 16:35
[2017-04-28] MEDS: APIXABAN 2.5 MG TABLET PO SCH (21:00)
[2017-04-28] MEDS: MONTELUKAST SODIUM 10 MG TAB PO SCH (21:00)
[2017-04-28] MEDS: LATANOPROST 0.005% OPHT SOLN 2.5 ML BTL LEFT EYE SCH (23:04)
[2017-04-29] VITALS (11 sets, daily range): BP systolic 124–186; BP diastolic 59–84; PULSE 96–104; RESP 20; TEMP 97.9–98.8; O2SAT 93–97
[2017-04-29] MEDS: PIPERACIL-TAZO 4.5 GM PREMIX 100 ML IV SCH ×4 (03:36→22:18)
[2017-04-29] MEDS: SUCRALFATE 1 GM TAB PO SCH ×4 (08:00→21:00)
[2017-04-29] MEDS: RESP: ALBUTEROL 2.5 MG/IPRATROPIUM 0.5 MG NEB (SCH) NEB ×3 (08:10→19:14)
[2017-04-29] MEDS: PREGABALIN 25 MG CAP PO SCH ×2 (08:40→21:00)
[2017-04-29] MEDS: FUROSEMIDE 20 MG TAB PO SCH ×2 (08:40→17:03)
[2017-04-29] MEDS: hydrALAZINE HCL 25 MG TAB PO SCH ×2 (08:40→21:00)
[2017-04-29] MEDS: SODIUM CHLORIDE 0.9% FLUSH 10 ML FLUSH IV FLUSH SCH ×2 (08:43→22:20)
[2017-04-29] MEDS: INSULIN ASPART SUPPLEMENTAL SCALE SQ SCH ×4 (08:43→21:00)
[2017-04-29] MEDS: prednisoLONE ACETATE 1% OPHT SUSP 5 ML BTL RIGHT EYE SCH (08:44)
[2017-04-29] MEDS: ZINC OXIDE 40% OINT 60 GM TUBE TOPICAL SCH ×2 (08:44→22:23)
[2017-04-29] MEDS: LEVOBUNOLOL HCL 0.5% OPHT SOLN 5 ML BTL EACH EYE SCH ×2 (08:45→22:19)
[2017-04-29] MEDS: TAMSULOSIN HCL 0.4 MG CAP PO SCH (08:45)
[2017-04-29] MEDS: APIXABAN 2.5 MG TABLET PO SCH ×2 (08:45→21:00)
[2017-04-29] MEDS: LACTOBACILLUS ACIDOPHILUS TAB PO SCH ×3 (08:45→17:02)
[2017-04-29] MEDS: FERROUS SULFATE 325 MG (65 MG ELEMENTAL IRON) TAB PO SCH ×2 (08:45→21:00)
[2017-04-29] MEDS: PANTOPRAZOLE SOD 40 MG DELAYED RELEASE TAB PO SCH ×2 (08:45→21:00)
[2017-04-29] MEDS: SODIUM CHLORIDE 1 GRAM TAB PO SCH ×3 (08:45→17:03)
[2017-04-29] MEDS: POTASSIUM CHLORIDE 20 MEQ CONTROLLED RELEASE TAB PO SCH ×2 (08:45→21:00)
[2017-04-29] MEDS: BUDESONIDE-FORMOTEROL 160/4.5 MCG INHALER INH SCH ×2 (08:46→21:00)
[2017-04-29] MEDS: AQUAPHOR OINT 50 GM TUBE TOPICAL SCH ×2 (08:46→22:22)
--- NOTE | 2017-04-29 09:22 | HHI.PR ---
Subjective Remarks Follow-up for pneumonia, possible cholecystitis. Patient is coughing more and bringing up white sputum. No fever, chills. Feel fatigued. Objective Vitals Vital Signs Date Time Temp Pulse Resp B/P (MAP) Pulse Ox O2 Delivery O2 Flow Rate FiO2 04/29/17 08:10 97 Nasal Cannula 3.00 04/29/17 04:00 98.2 104 20 186/81 (116) 95 04/29/17 04:00 Nasal Cannula 4.00 04/29/17 03:46 102 04/29/17 00:00 Nasal Cannula 4.00 04/29/17 00:00 98.2 96 20 158/69 (98) 94 04/28/17 23:29 99 04/28/17 20:16 96 Nasal Cannula 3.00 04/28/17 20:00 97.3 96 19 175/77 (109) 95 04/28/17 20:00 Nasal Cannula 4.00 04/28/17 16:00 98.1 99 20 177/75 (109) 91 04/28/17 16:00 100 04/28/17 12:00 85 04/28/17 12:00 97.1 94 20 165/75 (105) 95 I/O 04/28/17 04/28/17 04/28/17 04/29/17 04/29/17 04/29/17 07:00 15:00 23:00 07:00 15:00 23:00 Intake Total 120 ml 240 ml 420 ml Output Total 800 ml 300 ml Balance -680 ml 240 ml 120 ml Intake Oral 120 ml 240 ml 420 ml Output Urine Total 800 ml 300 ml Bladder Scan Volume Amount 432 ml # Voids 1 3 # Bowel Movements 1 3 0 Result Diagram: 04/27/17 0740 04/27/17 0740 Objective Remarks GENERAL: Alert, NAD. SKIN: Warm and dry. HEAD: Normocephalic. EYES: No scleral icterus. No injection or drainage. NECK: Supple, trachea midline. No JVD or lymphadenopathy. CARDIOVASCULAR: Regular rate and rhythm without murmurs, gallops, or rubs. RESPIRATORY: Breath sounds equal bilaterally. No accessory muscle use. GASTROINTESTINAL: Abdomen soft, non-tender, nondistended. MUSCULOSKELETAL: No cyanosis, or edema. BACK: Nontender without obvious deformity. No CVA tenderness. Procedures None A/P Problem List: (1) Cholecystitis ICD Code: K81.9 - Cholecystitis, unspecified Status: Chronic (2) Pneumonia ICD Code: J18.9 - Pneumonia, unspecified organism Status: Acute (3) UTI (urinary tract infection) ICD Code: N39.0 - Urinary tract infection, site not specified Status: Chronic Assessment and Plan Mr. Montaño is a pleasant 81-year-old male with a history of congestive heart failure (diastolic) who was transferred from [facility] to the medical floor due to cholecystitis, pneumonia and UTI. Patient was evaluated by general surgery who recommended medical treatment at this point. -Sepsis (heart rate > 90, RR > 20, known infection - pneumonia, cholecystitis). -Acute cholecystitis -Probable Aspiration pneumonia of right lung. -Urinary tract infection -urine culture from 04/19/2017 shows E. coli -Right lung pneumonia is a possible aspiration pneumonia. -Continue Zosyn per ID recommendations. -IF Patient remains hemodynamically stable and afebrile, we can consider switching antibiotics to oral Augmentin. -Continue DuoNeb, Symbicort. - Left pleural effusion - s/p thoracentesis. 300mL were taken off. Appears to be transudative. - Left lower ext DVT -Doppler ultrasound 04/16/2017 shows left lower extremity DVT. During that time there was concern about upper GI bleed. -I believe patient would benefit from anticoagulation especially since patient is not very ambulatory. -Minimum 3 months, possibly indefinite anticoagulation would be recommended. -I discussed at length with patient and his . They understand the risk and benefit. -We will start patient on apixaban 2.5 mg twice daily. If no complication occurs will increase the dose to 5 mg twice daily. Will consider switching to 5 mg twice daily on 04/30/2017. - Hypertension - Diastolic congestive heart failure - Continue Amlodipine 10mg Qday, hydralazine 25 mg p.o. twice daily, Lasix 20 mg p.o. twice daily -[facility] determined that patient would not be qualified for [facility] admission. -Palliative care is following. Will wait for further recommendations from palliative care. However I believe patient should be evaluated by hospice care. DNR. Heparin SQ. Marina Henry DO Apr 29, 2017 09:22
--- NOTE | 2017-04-29 10:34 | RADRPT ---
EXAM DATE/TIME: 04/29/2017 10:10 [place] COMPARISON: CHEST SINGLE AP, April 13, 2017, 15:56. INDICATIONS : Patient experiencing shortness of breath. MEDICAL HISTORY : Hypercholesterolemia. Hypertension MRSA, ulcer, hiatal hernia SURGICAL HISTORY : Gastric bypass. colonoscopy ENCOUNTER: Initial ACUITY: 1 day PAIN SCORE: 0/10 LOCATION: chest FINDINGS: Cardiomegaly, bilateral pleural effusions and lower lobe consolidation again noted. Linear atelectasi s left midlung. Osseous structures are intact. CONCLUSION: No significant change has occurred. Gil Mcclelland MD on April 29, 2017 at 10:33 Board Certified Radiologist. This report was verified electronically.
--- NOTE | 2017-04-29 15:18 | HHI.HCPN ---
Reason for visit a. To assist with evaluation and management of symptoms including: pain, dyspnea, debility, dysphasia b. To assist medical decision maker(s) with: better understanding of current medical conditions; weighing benefits/burdens of medical treatment options; making medical treatment decisions. . Subjective/Interval History Follow-up visit for symptom management and clarification of medical treatment goals. Patient was seen in room 1411. Also present patient's , Jessica. Patient presents sitting upright in his bed finishing a nebulizer treatment. Patient reports ongoing, persistent product cough with intermittent dyspnea and fatigue. He denies pain. Follow-up chest x-ray this morning 04/29/2017 showing cardiomegaly, bilateral pleural effusions and lower lobe consolidation. Linear atelectasis left midlung. Osseous structures intact. No significant interval change. Remains on Zosyn for treatment of pneumonia, possible cholecystitis. Infectious disease following. Dr. Webb, general surgery is also following this patient for recommendation on management of cholelithiasis and cholecystitis. Recommendations to treat nonoperatively as because the patient may be unable to tolerate surgery. Patient significantly deconditioned and was declined by [facility] inpatient re[facility]. Case management provided family with a list of usp facilities. Palliative care met with the patient and his to discuss aggressive vs, comfort focused goals. Given the patient's advanced age, multiple comorbid conditions and overall debility, he is at high risk for ongoing complications and setbacks. He failed a swallow evaluation with speech therapy today and has been made NPO. It is unclear if airway endangerment is related to his prior known history of severe esophagitis or other esophageal etiology of regurgitation with risk to airway. Patient's living will states he would not want artificial nutrition, however he would accept short term if necessary. Hospice was introduced. Patient's would like to speak with palliative care again later today after the patient's son has arrived later today. Palliative care attempted to contact patient's later in the day via telephone because she was not on the floor but there was no answer. . Advance Directives Living Will: Copy in medical record Health Care Surrogate: Copy in medical record Durable Power of Can Pusher: Copy in medical record Advance Directive Specifics Date completed: 11/04/15 . Health Care Surrogate(s): Patient's (Merari Montaño) is designated as the HCS decision-making. Son, Toño Montaño, is designated as the alternate healthcare surrogate. . Documented care wishes: Written advanced directives were completed on 11/04/2015 and are accessible in both the patient's paper chart and EMR. . Objective Vital Signs Date Time Temp Pulse Resp B/P (MAP) Pulse Ox O2 Delivery O2 Flow Rate FiO2 04/29/17 09:00 Nasal Cannula 4.00 04/29/17 08:10 97 Nasal Cannula 3.00 04/29/17 07:50 98 04/29/17 04:00 98.2 104 20 186/81 (116) 95 04/29/17 04:00 Nasal Cannula 4.00 04/29/17 03:46 102 04/29/17 00:00 Nasal Cannula 4.00 04/29/17 00:00 98.2 96 20 158/69 (98) 94 04/28/17 23:29 99 04/28/17 20:16 96 Nasal Cannula 3.00 04/28/17 20:00 97.3 96 19 175/77 (109) 95 04/28/17 20:00 Nasal Cannula 4.00 04/28/17 16:00 98.1 99 20 177/75 (109) 91 04/28/17 16:00 100 Intake & Output 04/29/17 04/29/17 07:00 19:00 Intake Total 420 ml Output Total 300 ml Balance 120 ml Intake Oral 420 ml Output Urine Total 300 ml # Bowel Movements 0 . Physical Exam CONSTITUTIONAL/GENERAL: This is an adequately nourished, elderly male patient in no acute distress. TUBES/LINES/DRAINS: PIV 1 SKIN: No jaundice, rashes, or lesions. Generalized pallor. Skin temperature appropriate. Not diaphoretic. HEAD: Atraumatic. Normocephalic. EYES: Pupils equal and round and reactive. Extraocular motions intact. No scleral icterus. No injection or drainage. Fundi not examined. ENT: Hearing grossly normal. Nose without bleeding or purulent drainage. NECK: Trachea midline. Supple, nontender. No palpable thyroid enlargement or nodularity. CARDIOVASCULAR: Regular rate, irregular rhythm. No JVD. Peripheral pulses symmetric. RESPIRATORY/CHEST: Symmetric, unlabored respirations. Breath sounds diminished bilaterally. Persistent, productive cough GASTROINTESTINAL: Abdomen soft, non-tender, nondistended. No guarding. Bowel sounds present. GENITOURINARY: Without palpable bladder distension. MUSCULOSKELETAL: Extremities without clubbing, cyanosis or mottling. LYMPHATICS: No palpable cervical or supraclavicular adenopathy. NEUROLOGICAL: Awake. Appears to be having difficulty participating in conversation secondary to lethargy. Responds to some questions with brief answers and follows simple commands. PSYCHIATRIC: No obvious anxiety/depression. no apparent hallucinations or other psychotic thought process. . Diagnostic Tests Laboratory Laboratory Tests Test 04/27/17 07:40 White Blood Count 6.3 TH/MM3 (4.0-11.0) Red Blood Count 4.03 MIL/MM3 (4.50-5.90) Hemoglobin 8.9 GM/DL (13.0-17.0) Hematocrit 27.0 % (39.0-51.0) Mean Corpuscular Volume 67.0 FL (80.0-100.0) Mean Corpuscular Hemoglobin 22.0 PG (27.0-34.0) Mean Corpuscular Hemoglobin Concent 32.8 % (32.0-36.0) Red Cell Distribution Width 21.3 % (11.6-17.2) Platelet Count 315 TH/MM3 (150-450) Mean Platelet Volume 9.3 FL (7.0-11.0) Neutrophils (%) (Auto) 70.5 % (16.0-70.0) Lymphocytes (%) (Auto) 18.2 % (9.0-44.0) Monocytes (%) (Auto) 4.3 % (0.0-8.0) Eosinophils (%) (Auto) 5.9 % (0.0-4.0) Basophils (%) (Auto) 1.1 % (0.0-2.0) Neutrophils # (Auto) 4.5 TH/MM3 (1.8-7.7) Lymphocytes # (Auto) 1.2 TH/MM3 (1.0-4.8) Monocytes # (Auto) 0.3 TH/MM3 (0-0.9) Eosinophils # (Auto) 0.4 TH/MM3 (0-0.4) Basophils # (Auto) 0.1 TH/MM3 (0-0.2) CBC Comment DIFF FINAL Differential Comment Blood Urea Nitrogen 12 MG/DL (7-18) Creatinine 0.99 MG/DL (0.60-1.30) Random Glucose 139 MG/DL (74-106) Calcium Level 8.4 MG/DL (8.5-10.1) Sodium Level 130 MEQ/L (136-145) Potassium Level 3.9 MEQ/L (3.5-5.1) Chloride Level 99 MEQ/L (98-107) Carbon Dioxide Level 23.1 MEQ/L (21.0-32.0) Anion Gap 8 MEQ/L (5-15) Estimat Glomerular Filtration Rate 73 ML/MIN (>89) . Result Diagram: 04/27/17 0740 04/27/17 0740 Microbiology Microbiology Date/Time Source Procedure Growth Status 04/26/17 22:45 Blood Peripheral Aerobic Blood Culture - Preliminary NO GROWTH IN 3 DAYS Resulted 04/26/17 22:45 Blood Peripheral Anaerobic Blood Culture - Preliminary NO GROWTH IN 3 DAYS Resulted 04/26/17 22:10 Blood Peripheral Aerobic Blood Culture - Preliminary NO GROWTH IN 3 DAYS Resulted 04/26/17 22:10 Blood Peripheral Anaerobic Blood Culture - Preliminary NO GROWTH IN 3 DAYS Resulted . Imaging Last 72 hours Impressions Chest X-Ray 04/29/17 0000 Signed Impressions: Service Date/Time: Saturday, April 29, 2017 10:10 - CONCLUSION: No significant change has occurred. Gil Mcclelland MD . Assessment and Plan Disease Oriented Problem List: (1) Esophagitis (2) Diabetes mellitus (3) Cholecystitis (4) Hyperlipidemia (5) History of GI bleed (6) CHF (congestive heart failure) (7) UTI (urinary tract infection) (8) Pneumonia (9) HTN (hypertension) (10) ISIDORO on CPAP (11) Deep vein thrombosis (DVT) of left lower extremity (12) BPH (benign prostatic hyperplasia) Symptom Scale: (1) Dyspnea 0-10 Scale: Unable to quantify (2) Debility 0-10 Scale: Unable to quantify (3) Pain 0-10 Scale: 0 (4) Dysphasia 0-10 Scale: 10 Pertinent Non-Medical Issues Psychosocial:Patient has lived in [place] for 50 years. He has 2 adult sons from a previous marriage; one son lives in [place] and the other son lives in [facility]. Patient is currently to Merari; they have been together for 38 years. Mr. Montaño worked for [employer], and his worked for the [employer] prior to retiring. Spiritual: Jehovah'[employer] Witness justa Legal: Patient (Merari Montaño) is designated as the [facility] decision-making. Ethical issues impacting care: No know ethical issues impacting care at this time. . Important Contacts Jessica Patel, : [phone] Toño Montaño, son: [phone] . Prognosis Patient is a 81-year-old male with a complex medical history who has had an acute decline in the past 2 months. He was hospitalized in February, with a GI bleed. He returned home after being discharged and experienced flulike symptoms for 2-3 weeks before being be hospitalized on 04/06/2017 with bilateral pneumonia, new onset CHF and hyperkalemia. He was discharged to [facility] inpatient rehab on 04/09/2017. However, his rehabilitation has been inhibited by complications including persistent bibasilar pneumonia, CHF, severe esophagitis status post EGD and UTI. Patient remains severely debilitated and is now being transferred back to [facility] for medical management of pneumonia vs. pulmonary edema. This patient is at risk for ongoing decline, complications and setbacks. . Code Status: No Code Plan * NO CODE * Decision-making: Patient's insight related to his medical conditions was somewhat limited today secondary to lethargy and recent administration of benzodiazepine. Will reassess capacity tomorrow. Patient's (Merari Montaño ) is designated as the [facility] decision-making. Son, Toño Montaño, is designated as the alternate healthcare surrogate. * Written advanced directives were completed on 11/04/2015 and are accessible in both the patient's paper chart and EMR. After reviewing written advanced directives, patient's wishes to honor patient's living will and request that CODE STATUS be changed to NO CODE- DNR/DNI. Conversation witnessed by Summer Villegas, Palliative Care INTERNAL CONTROL SPECIALIST. * Goals remain aggressive up to the point of cardiopulmonary resuscitation. * Patient significantly deconditioned and was declined by [facility] inpatient rehab. Case management provided family with a list of usp facilities. Palliative care met with the patient and his to discuss aggressive vs, comfort focused goals. Given the patient's advanced age, multiple comorbid conditions and overall debility, he is at high risk for ongoing complications and setbacks. Hospice was introduced. Patient's would like to speak with palliative care again later today after the patient's son has arrived for further discussion/clarification of medical treatment goals. Palliative care attempted to contact patient's later in the day via telephone because she was not on the floor but there was no answer. * Discussed patient with Dr. Henry. * Symptom management: = Dyspnea: = Pain: Multifactorial. Patient has a history of chronic back pain and was reporting abdominal pain that has now resolved. No PRN medications are available for pain. = Debility: Patient was able to ambulate with walker within his home and required assistance with ADLs at baseline. He has become increasingly debilitated after being hospitalized 2 times in the past 2 months despite 14+ days of rehabilitation. Patient is high risk for ongoing decline, setbacks and complications. = Dysphasia: Patient stating he cannot swallow anything because it feels like it is stuck in his throat. He failed a swallow evaluation with speech therapy today and has been made NPO. It is unclear if airway endangerment is related to his prior known history of severe esophagitis or other esophageal etiology of regurgitation with risk to airway. Patient's living will states he would not want artificial nutrition, however he would accept short term if necessary. * Palliative care will continue to follow this patient throughout his hospitalization to establish stress, assist with symptom management clarification of medical treatment goals. Attestation To help prompt me to consider important information that might be impacting today's encounter and assessment, information from prior notes written by myself or my colleagues may have been "brought forward" into today's note. My signature on this note, however, is an attestation that I personally performed the exam, history, and/or decision-making noted today, and, unless otherwise indicated, the interactions with patient, family, and staff as well as the review of records all occurred today. I also attest that the listed assessment and stated plan reflect my best clinical judgment today based on the combination of historical information, prior notes, and today's exam/ interactions. When time spent is documented, it refers only to time spent today by the signer, or if indicated, combined time spent today by collaborating physician/nurse practitioner. . Taylor Lopez Apr 29, 2017 15:18
--- NOTE | 2017-04-29 17:08 | HHI.PR ---
cc: Jesus Carmona MD Subjective Subjective Notes DAILY PROGRESS NOTE FOR SURGICAL ATTENDING, DR. JESUS CARMONA Resting in bed MJ Mills at bedside at bedside ---- thinking about having feeding tube inserted Objective Vitals/I&O Vital Signs Date Time Temp Pulse Resp B/P (MAP) Pulse Ox O2 Delivery O2 Flow Rate FiO2 04/29/17 09:00 Nasal Cannula 4.00 04/29/17 08:10 97 04/29/17 07:50 98 04/29/17 04:00 98.2 20 186/81 (116) 04/27/17 04:00 94 Labs Date/Time Source Procedure Growth Status 04/26/17 22:45 Blood Peripheral Aerobic Blood Culture - Preliminary NO GROWTH IN 3 DAYS Resulted 04/26/17 22:45 Blood Peripheral Anaerobic Blood Culture - Preliminary NO GROWTH IN 3 DAYS Resulted Cardiovascular: Regular Lungs: Clear Abdomen: Other (non tender to palpation in RUQ ) Extremities: No edema A/P Problem List: (1) Pneumonia ICD Codes: J18.9 - Pneumonia, unspecified organism Status: Acute (2) Gallstones ICD Codes: K80.20 - Calculus of gallbladder without cholecystitis without obstruction Status: Chronic (3) Weakness ICD Codes: R53.1 - Weakness Status: Chronic (4) Cholecystitis ICD Codes: K81.9 - Cholecystitis, unspecified Status: Chronic (5) Generalized muscle weakness ICD Codes: M62.81 - Muscle weakness (generalized) Status: Chronic (6) UTI (urinary tract infection) ICD Codes: N39.0 - Urinary tract infection, site not specified Status: Chronic (7) CHF (congestive heart failure) ICD Codes: I50.9 - Heart failure, unspecified Status: Chronic (8) HTN (hypertension) ICD Codes: I10 - Essential (primary) hypertension Status: Chronic (9) Bilateral pneumonia ICD Codes: J18.9 - Pneumonia, unspecified organism Status: Acute (10) History of gastric bypass ICD Codes: Z98.84 - Bariatric surgery status (11) Chronic illness ICD Codes: R69 - Illness, unspecified Assessment and Plan 81 year old male with multiple medical problems including UTI and pneumonia; imaging found cholelithiasis with mild cholecystitis -Continue non operative treatment -Continue antibiotics -Abdominal exam is benign -Failed swallow eval today; NPO - considering feeding tube -If fails non operative treatment for cholecystitis and he becomes symptomatic-- -would consider cholecystectomy tube placement Attending Statement NOTE FOR SURGICAL ATTENDING, DR. JESUS CARMONA I attest that I had a [id number] encounter with the patient on the same day, and personally performed and documented my assessment and findings in the medical record. The following services were provided during this hospital visit: Chart data review, vital sign assessments/reviewing monitor data Review of consultations notes if present. Medication orders/review and/or management Ordering and/or reviewing lab tests Ordering and/or interpreting/reviewing x-rays and/or diagnostic studies Care of the patient and discussion of the patient with the care team Documentation time To help prompt me to consider important information that might be impacting today's encounter and assessment, information from prior notes written by myself or my colleagues may have been "brought forward/copy and pasted" into today's note. Problem Qualifiers (1) Pneumonia: Doris Gill/Meter Readers Supervisor ALEX Apr 29, 2017 17:07 Jesus Carmona MD May 02, 2017 07:40
[2017-04-29] MEDS ORDERED: LORazepam 2 MG/ML VIAL IV PUSH PRN (17:45)
[2017-04-29] MEDS: MONTELUKAST SODIUM 10 MG TAB PO SCH (21:00)
[2017-04-29] MEDS ORDERED: diphenhydrAMINE HCL 50 MG/ML VIAL IV ONE (21:45)
[2017-04-29] MEDS: LATANOPROST 0.005% OPHT SOLN 2.5 ML BTL LEFT EYE SCH (22:26)
[2017-04-30] VITALS (10 sets, daily range): BP systolic 154–187; BP diastolic 60–74; PULSE 86–102; RESP 20–21; TEMP 97.8–99.2; O2SAT 96–98
[2017-04-30] MEDS: PIPERACIL-TAZO 4.5 GM PREMIX 100 ML IV SCH ×4 (03:24→19:40)
[2017-04-30] MEDS: INSULIN ASPART SUPPLEMENTAL SCALE SQ SCH ×4 (07:58→20:12)
[2017-04-30] MEDS: SUCRALFATE 1 GM TAB PO SCH ×4 (07:58→20:13)
[2017-04-30] MEDS: hydrALAZINE HCL 25 MG TAB PO SCH ×2 (08:07→20:13)
[2017-04-30] MEDS: LACTOBACILLUS ACIDOPHILUS TAB PO SCH ×3 (08:08→17:07)
[2017-04-30] MEDS: PANTOPRAZOLE SOD 40 MG DELAYED RELEASE TAB PO SCH ×2 (08:08→20:14)
[2017-04-30] MEDS: POTASSIUM CHLORIDE 20 MEQ CONTROLLED RELEASE TAB PO SCH ×2 (08:08→20:13)
[2017-04-30] MEDS: TAMSULOSIN HCL 0.4 MG CAP PO SCH (08:08)
[2017-04-30] MEDS: APIXABAN 2.5 MG TABLET PO SCH ×2 (08:08→20:13)
[2017-04-30] MEDS: FUROSEMIDE 20 MG TAB PO SCH ×2 (08:08→17:08)
[2017-04-30] MEDS: PREGABALIN 25 MG CAP PO SCH ×2 (08:08→20:14)
[2017-04-30] MEDS: FERROUS SULFATE 325 MG (65 MG ELEMENTAL IRON) TAB PO SCH ×2 (08:08→20:13)
[2017-04-30] MEDS: SODIUM CHLORIDE 1 GRAM TAB PO SCH ×3 (08:09→17:08)
[2017-04-30] MEDS: RESP: ALBUTEROL 2.5 MG/IPRATROPIUM 0.5 MG NEB (SCH) NEB ×3 (08:23→19:52)
[2017-04-30 08:47] LABS: AUTOMATED NEUTROPHIL # 3.9 TH/MM3 (1.8-7.7); BASOPHIL # 0.1 TH/MM3 (0-0.2); BASOPHIL % 1.2 % (0.0-2.0); EOSINOPHIL # 0.3 TH/MM3 (0-0.4); EOSINOPHIL % 4.8 % (0.0-4.0); HEMATOCRIT 27.7 % (39.0-51.0); HEMOGLOBIN 9.2 GM/DL (13.0-17.0); LYMPH % 18.5 % (9.0-44.0); MEAN CELL VOLUME 66.9 FL (80.0-100.0); MEAN CORPUSCULAR HEMOGLOBIN 22.2 PG (27.0-34.0); MEAN CORPUSCULAR HGB CONC 33.1 % (32.0-36.0); MONO % 5.7 % (0.0-8.0); MONOCYTE # 0.3 TH/MM3 (0-0.9); NEUT % 69.8 % (16.0-70.0); PLATELET COUNT 387 TH/MM3 (150-450); RED BLOOD COUNT 4.14 MIL/MM3 (4.50-5.90); WHITE BLOOD COUNT 5.6 TH/MM3 (4.0-11.0)
[2017-04-30] MEDS: BUDESONIDE-FORMOTEROL 160/4.5 MCG INHALER INH SCH ×2 (08:59→20:13)
[2017-04-30 09:11] LABS: BICARBONATE 24.4 MEQ/L (21.0-32.0); CREATININE 0.88 MG/DL (0.60-1.30)
[2017-04-30] MEDS: LEVOBUNOLOL HCL 0.5% OPHT SOLN 5 ML BTL EACH EYE SCH ×2 (09:37→20:10)
[2017-04-30] MEDS: prednisoLONE ACETATE 1% OPHT SUSP 5 ML BTL RIGHT EYE SCH (09:37)
[2017-04-30] MEDS: SODIUM CHLORIDE 0.9% FLUSH 10 ML FLUSH IV FLUSH SCH ×2 (09:37→20:13)
[2017-04-30] MEDS: ZINC OXIDE 40% OINT 60 GM TUBE TOPICAL SCH ×2 (09:38→20:12)
[2017-04-30] MEDS: AQUAPHOR OINT 50 GM TUBE TOPICAL SCH ×2 (09:38→20:12)
[2017-04-30] MEDS ORDERED: SCOPOLAMINE 1.5 MG PATCH T-DERMAL SCH (11:00)
[2017-04-30] MEDS: MORPHINE SULFATE 2 MG/ML INJ IM PRN ×5 (11:45→23:56)
--- NOTE | 2017-04-30 16:17 | HHI.PR ---
cc: Tani Carmona MD Subjective Subjective Notes DAILY PROGRESS NOTE FOR SURGICAL ATTENDING, DR. TANI CARMONA I can't swallow I feel better I have no abdominal pain Objective Vitals/I&O Vital Signs Date Time Temp Pulse Resp B/P (MAP) Pulse Ox O2 Delivery O2 Flow Rate FiO2 04/30/17 12:00 98.1 95 20 171/74 (106) 98 04/30/17 08:25 Nasal Cannula 3.00 04/27/17 04:00 94 Labs Laboratory Tests Test 04/30/17 07:48 White Blood Count 5.6 Red Blood Count 4.14 Hemoglobin 9.2 Hematocrit 27.7 Mean Corpuscular Volume 66.9 Mean Corpuscular Hemoglobin 22.2 Mean Corpuscular Hemoglobin Concent 33.1 Red Cell Distribution Width 21.0 Platelet Count 387 Mean Platelet Volume 8.0 Neutrophils (%) (Auto) 69.8 Lymphocytes (%) (Auto) 18.5 Monocytes (%) (Auto) 5.7 Eosinophils (%) (Auto) 4.8 Basophils (%) (Auto) 1.2 Neutrophils # (Auto) 3.9 Lymphocytes # (Auto) 1.0 Monocytes # (Auto) 0.3 Eosinophils # (Auto) 0.3 Basophils # (Auto) 0.1 CBC Comment DIFF FINAL Differential Comment Blood Urea Nitrogen 10 Creatinine 0.88 Random Glucose 159 Calcium Level 9.0 Sodium Level 138 Potassium Level 3.3 Chloride Level 102 Carbon Dioxide Level 24.4 Anion Gap 12 Estimat Glomerular Filtration Rate 84 Date/Time Source Procedure Growth Status 04/26/17 22:45 Blood Peripheral Aerobic Blood Culture - Preliminary NO GROWTH IN 4 DAYS Resulted 04/26/17 22:45 Blood Peripheral Anaerobic Blood Culture - Preliminary NO GROWTH IN 4 DAYS Resulted Abdomen: Non-distended, Non-tender A/P Problem List: (1) Pneumonia ICD Codes: J18.9 - Pneumonia, unspecified organism Status: Acute (2) Gallstones ICD Codes: K80.20 - Calculus of gallbladder without cholecystitis without obstruction Status: Chronic (3) Weakness ICD Codes: R53.1 - Weakness Status: Chronic (4) Cholecystitis ICD Codes: K81.9 - Cholecystitis, unspecified Status: Chronic (5) Generalized muscle weakness ICD Codes: M62.81 - Muscle weakness (generalized) Status: Chronic (6) UTI (urinary tract infection) ICD Codes: N39.0 - Urinary tract infection, site not specified Status: Chronic (7) CHF (congestive heart failure) ICD Codes: I50.9 - Heart failure, unspecified Status: Chronic (8) HTN (hypertension) ICD Codes: I10 - Essential (primary) hypertension Status: Chronic (9) Bilateral pneumonia ICD Codes: J18.9 - Pneumonia, unspecified organism Status: Acute (10) History of gastric bypass ICD Codes: Z98.84 - Bariatric surgery status (11) Chronic illness ICD Codes: R69 - Illness, unspecified Assessment and Plan 81-year-old gentleman who has numerous medical issues including pneumonia recently treated UTI generalized malaise and inability to progress in rehabilitation now with possible aspiration pneumonia pneumonia. He has cholelithiasis with mild cholecystitis I would favor treating nonoperatively. Discussed with the medical team Continue antibiotic therapy to treat his infections If he doesn't progress or becomes more symptomatic with his biliary tree then cholecystotomy would be indicated His exam is fairly benign for cholecystitis Continue antibiotic treatment for cholecystitis Further treatment of his multiple medical issues per medical team Advance diet no restrictions from general surgery His major problem now appears to be swallowing difficulties from my understanding he is getting a EGD on Tuesday questionable PEG placement I think his acute cholecystitis is successfully being treated with antibiotic therapy Attending Statement NOTE FOR SURGICAL ATTENDING, DR. TANI CARMONA I attest that I had a [id number] encounter with the patient on the same day, and personally performed and documented my assessment and findings in the medical record. The following services were provided during this hospital visit: Chart data review, vital sign assessments/reviewing monitor data Review of consultations notes if present. Medication orders/review and/or management Ordering and/or reviewing lab tests Ordering and/or interpreting/reviewing x-rays and/or diagnostic studies Care of the patient and discussion of the patient with the care team Documentation time To help prompt me to consider important information that might be impacting today's encounter and assessment, information from prior notes written by myself or my colleagues may have been "brought forward/copy and pasted" into today's note. Problem Qualifiers (1) Pneumonia: Tani Carmona MD Apr 30, 2017 16:17
--- NOTE | 2017-04-30 16:19 | HHI.PR ---
Subjective Remarks Follow-up for pneumonia, possible cholecystitis. Patient is resting in bed. Reports cough but unable to cough up much. No fever or chills. and other family members at bedside. We discussed about aggressive care vs. comfort care. Patient and family would like to discuss with hospice. Objective Vitals Vital Signs Date Time Temp Pulse Resp B/P (MAP) Pulse Ox O2 Delivery O2 Flow Rate FiO2 04/30/17 12:00 98.1 95 20 171/74 (106) 98 04/30/17 08:25 98 Nasal Cannula 3.00 04/30/17 08:00 Nasal Cannula 4.00 04/30/17 08:00 97 04/30/17 07:00 97.8 94 20 164/74 (104) 98 04/30/17 04:00 99.0 86 20 154/70 (98) 97 04/30/17 03:48 96 04/30/17 00:00 99.2 99 20 165/70 (101) 96 04/29/17 20:41 101 04/29/17 20:00 Nasal Cannula 4.00 04/29/17 20:00 98.8 104 20 124/59 (80) 95 04/29/17 19:14 93 Nasal Cannula 3.00 I/O 04/29/17 04/29/17 04/29/17 04/30/17 04/30/17 04/30/17 06:59 14:59 22:59 06:59 14:59 22:59 Intake Total 420 ml 100 ml 100 ml Output Total 300 ml 175 ml 475 ml Balance 120 ml 100 ml -75 ml -475 ml Intake Oral 420 ml 0 ml IV Total 100 ml 100 ml Output Urine Total 300 ml 175 ml 475 ml # Voids 2 # Bowel Movements 0 0 Result Diagram: 04/30/17 0748 04/30/17 0748 Imaging Last Impressions Chest X-Ray 04/29/17 0000 Signed Impressions: Service Date/Time: Saturday, April 29, 2017 10:10 - CONCLUSION: No significant change has occurred. Gil Mcclelland MD Objective Remarks GENERAL: Alert, NAD. SKIN: Warm and dry. HEAD: Normocephalic. EYES: No scleral icterus. No injection or drainage. NECK: Supple, trachea midline. No JVD or lymphadenopathy. CARDIOVASCULAR: Regular rate and rhythm without murmurs, gallops, or rubs. RESPIRATORY: Breath sounds equal bilaterally. No accessory muscle use. GASTROINTESTINAL: Abdomen soft, non-tender, nondistended. MUSCULOSKELETAL: No cyanosis, or edema. BACK: Nontender without obvious deformity. No CVA tenderness. Procedures None A/P Problem List: (1) Cholecystitis ICD Code: K81.9 - Cholecystitis, unspecified Status: Chronic (2) Pneumonia ICD Code: J18.9 - Pneumonia, unspecified organism Status: Acute (3) UTI (urinary tract infection) ICD Code: N39.0 - Urinary tract infection, site not specified Status: Chronic Assessment and Plan Mr. Montaño is a pleasant 81-year-old male with a history of congestive heart failure (diastolic) who was transferred from [facility] to the medical floor due to cholecystitis, pneumonia and UTI. Patient was evaluated by general surgery who recommended medical treatment at this point. -Sepsis (heart rate > 90, RR > 20, known infection - pneumonia, cholecystitis). -Acute cholecystitis -Probable Aspiration pneumonia of right lung. -Urinary tract infection -urine culture from 04/19/2017 shows E. coli -Right lung pneumonia is a possible aspiration pneumonia. -Continue Zosyn per ID recommendations. -IF Patient remains hemodynamically stable and afebrile, we can consider switching antibiotics to oral Augmentin. -Continue DuoNeb, Symbicort. - Left pleural effusion - s/p thoracentesis. 300mL were taken off. Appears to be transudative. - Left lower ext DVT -Doppler ultrasound 04/16/2017 shows left lower extremity DVT. During that time there was concern about upper GI bleed. -I believe patient would benefit from anticoagulation especially since patient is not very ambulatory. -Minimum 3 months, possibly indefinite anticoagulation would be recommended. -I discussed at length with patient and his . They understand the risk and benefit. -We will continue patient on apixaban 2.5 mg twice daily. - Hypertension - Diastolic congestive heart failure - Continue Amlodipine 10mg Qday, hydralazine 25 mg p.o. twice daily, Lasix 20 mg p.o. twice daily -Hospice consulted. Hospice will have a family meeting tomorrow 05/01/2017. DNR. Heparin SQ. Marina Henry DO Apr 30, 2017 16:19
[2017-04-30] MEDS: RESP: ALBUTEROL 2.5 MG/IPRATROPIUM 0.5 MG NEB (PRN) NEB (16:53)
[2017-04-30] MEDS ORDERED: FUROSEMIDE 20 MG/2 ML VIAL IV PUSH ONE (18:15)
[2017-04-30] MEDS ORDERED: FUROSEMIDE 20 MG/2 ML VIAL IV PUSH SCH (19:45)
[2017-04-30] MEDS: LATANOPROST 0.005% OPHT SOLN 2.5 ML BTL LEFT EYE SCH (20:10)
[2017-04-30] MEDS: MONTELUKAST SODIUM 10 MG TAB PO SCH (20:15)
[2017-05-01] VITALS: BP 167/75; PULSE 107; RESP 20; TEMP 97.4; O2SAT 95
[2017-05-01] MEDS: RESP: ALBUTEROL 2.5 MG/IPRATROPIUM 0.5 MG NEB (PRN) NEB (00:25)
[2017-05-01 00:27] VITALS: O2SAT 95
[2017-05-01] MEDS: PIPERACIL-TAZO 4.5 GM PREMIX 100 ML IV SCH ×2 (02:44→08:44)
[2017-05-01] MEDS: MORPHINE SULFATE 2 MG/ML INJ IM PRN ×3 (02:54→10:08)
[2017-05-01 04:00] VITALS: BP 187/85; PULSE 109; RESP 20; TEMP 98.3; O2SAT 96
[2017-05-01 08:00] VITALS: BP 160/72; PULSE 110; RESP 28; TEMP 97.5; O2SAT 91
[2017-05-01] MEDS: SUCRALFATE 1 GM TAB PO SCH ×2 (08:00→12:00)
[2017-05-01] MEDS: INSULIN ASPART SUPPLEMENTAL SCALE SQ SCH ×2 (08:00→12:00)
[2017-05-01] MEDS: hydrALAZINE HCL 25 MG TAB PO SCH (08:36)
[2017-05-01] MEDS: LACTOBACILLUS ACIDOPHILUS TAB PO SCH (08:37)
[2017-05-01] MEDS: POTASSIUM CHLORIDE 20 MEQ CONTROLLED RELEASE TAB PO SCH (08:37)
[2017-05-01] MEDS: APIXABAN 2.5 MG TABLET PO SCH (08:37)
[2017-05-01] MEDS: FUROSEMIDE 20 MG TAB PO SCH (08:37)
[2017-05-01] MEDS: FERROUS SULFATE 325 MG (65 MG ELEMENTAL IRON) TAB PO SCH (08:37)
[2017-05-01] MEDS: TAMSULOSIN HCL 0.4 MG CAP PO SCH (08:37)
[2017-05-01] MEDS: PREGABALIN 25 MG CAP PO SCH (08:39)
[2017-05-01] MEDS: SODIUM CHLORIDE 1 GRAM TAB PO SCH (08:39)
[2017-05-01] MEDS: PANTOPRAZOLE SOD 40 MG DELAYED RELEASE TAB PO SCH (08:39)
[2017-05-01] MEDS: BUDESONIDE-FORMOTEROL 160/4.5 MCG INHALER INH SCH (08:40)
[2017-05-01] MEDS: SODIUM CHLORIDE 0.9% FLUSH 10 ML FLUSH IV FLUSH SCH (08:43)
[2017-05-01] MEDS: prednisoLONE ACETATE 1% OPHT SUSP 5 ML BTL RIGHT EYE SCH (08:44)
[2017-05-01] MEDS: ZINC OXIDE 40% OINT 60 GM TUBE TOPICAL SCH (08:44)
[2017-05-01] MEDS: AQUAPHOR OINT 50 GM TUBE TOPICAL SCH (08:44)
[2017-05-01] MEDS: LEVOBUNOLOL HCL 0.5% OPHT SOLN 5 ML BTL EACH EYE SCH (08:45)
[2017-05-01] MEDS: RESP: ALBUTEROL 2.5 MG/IPRATROPIUM 0.5 MG NEB (SCH) NEB (08:49)
[2017-05-01 08:58] VITALS: O2SAT 94
[2017-05-01] MEDS ORDERED: diphenhydrAMINE HCL 50 MG/ML VIAL IV PUSH ONE (09:30)
[2017-05-01] MEDS ORDERED: FUROSEMIDE 20 MG/2 ML VIAL IV PUSH ONE (09:30)
[2017-05-01] MEDS ORDERED: diphenhydrAMINE HCL 50 MG/ML VIAL IV PRN (09:30)
--- NOTE | 2017-05-01 11:57 | HHI.DS ---
Discharge Summary Admission Date Apr 26, 2017 at 15:27 Discharge Date: May 01, 2017 Admitting Diagnosis Pneumonia, cholecystitis (1) Cholecystitis ICD Code: K81.9 - Cholecystitis, unspecified Diagnosis: Principal Status: Chronic (2) Pneumonia ICD Code: J18.9 - Pneumonia, unspecified organism Diagnosis: Principal Status: Acute (3) UTI (urinary tract infection) ICD Code: N39.0 - Urinary tract infection, site not specified Status: Chronic Procedures None Brief History - From Admission Patient was seen at around 1:30 PM today April 26, 2017 at the rehabilitation facility prior to transfer to my service. Patient was admitted to inpatient rehabilitation facility [facility] from April 09, 2017 to April 26, 2017 Prior to that, patient was under medical service from April 07, 2017 to April 09, 2017. Patient was initially managed for complaints of dyspnea for past 2-3 weeks on admission to hospital. He was treated for CHF presumably secondary to diastolic heart failure with an echo showing normal EF. He was also on antibiotics for pneumonia which was later discontinued. While at inpatient rehabilitation facility, patient was receiving Zosyn for past 7 days because of Escherichia coli UTI. On March. Was while in rehabilitation facility was noted to be more dyspneic than his normal for which workup with CT chest was done which shows initially moderate pleural effusions. He was initially diuresed with Lasix 40 mg IV twice a day which was started on the night of April 19, 2017.. However after receiving Lasix overnight and one more dose in the morning, patient had syncopal episode while at rehabilitation facility with significant orthostatic hypotension. Therefore Lasix was discontinued. Ultrasound of the chest was done which was initially suboptimal study with underestimation per radiologist. Follow-up ultrasound then still revealed small to moderate pleural effusions. Today, patient still remains to be with high oxygen requirement of 4 L. at the bedside also reported that although patient was participating in physical therapy since I last saw him on April 19 2017, he was not able to participate fully in intensely. He did not participate over the weekend. Patient's abdominal girth also has increased in the past one week. Patient had low-grade fever last night and this morning and also seems to have spiked up to 101 a few days ago as well. He does also complain of abdominal pain which is generalized. He is also noted to be constantly coughing today on examination by medical team MEL. Upon my exam as well, patient is coughing quite a bit. Patient was just recently changed from liquids diet to pured diet by GI today. His cough precedes this change. No witnessed episode of aspiration. His mental status remains to be same except that he is tired. However when he is awake, he is oriented and at baseline though forgetful at times. Today however upon my exam, patient is quite sleepy simply because he just received Xanax prior to my arrival. Both our medical team PA and patient's at the bedside reassured me that patient was much more awake alert and participating in his care earlier this morning. denies any significant diarrhea. He did have 1 times episode of loose stools overnight. Denies any urinary symptoms. He however wears a diaper. Decision was made to transfer patient back to medical service per request of the rehabilitation physician and also upon our examination. Patient is not fully participating in his rehabilitation therapy because of his acute medical issues. CBC/BMP: 04/30/17 0748 04/30/17 0748 Significant Findings Laboratory Tests Test 04/30/17 07:48 Red Blood Count 4.14 MIL/MM3 (4.50-5.90) Hemoglobin 9.2 GM/DL (13.0-17.0) Hematocrit 27.7 % (39.0-51.0) Mean Corpuscular Volume 66.9 FL (80.0-100.0) Mean Corpuscular Hemoglobin 22.2 PG (27.0-34.0) Red Cell Distribution Width 21.0 % (11.6-17.2) Eosinophils (%) (Auto) 4.8 % (0.0-4.0) Random Glucose 159 MG/DL (74-106) Potassium Level 3.3 MEQ/L (3.5-5.1) Estimat Glomerular Filtration Rate 84 ML/MIN (>89) Imaging Last Impressions Chest X-Ray 04/29/17 0000 Signed Impressions: Service Date/Time: Saturday, April 29, 2017 10:10 - CONCLUSION: No significant change has occurred. Gil Mcclelland MD PE at Discharge GENERAL: Alert, NAD. SKIN: Warm and dry. HEAD: Normocephalic. EYES: No scleral icterus. No injection or drainage. NECK: Supple, trachea midline. No JVD or lymphadenopathy. CARDIOVASCULAR: Regular rate and rhythm without murmurs, gallops, or rubs. RESPIRATORY: Breath sounds equal bilaterally. No accessory muscle use. GASTROINTESTINAL: Abdomen soft, non-tender, nondistended. MUSCULOSKELETAL: No cyanosis, or edema. BACK: Nontender without obvious deformity. No CVA tenderness. Pt update on day of discharge Patient is alert but continues to have breathing difficulty. Hospice held a family meeting and patient will be going with hospice to a care center today. Hospital Course Mr. Montaño is a pleasant 81-year-old male with a history of congestive heart failure (diastolic) who was transferred from [facility] to the medical floor due to cholecystitis, pneumonia and UTI. Patient was evaluated by general surgery who recommended medical treatment at this point. -Sepsis (heart rate > 90, RR > 20, known infection - pneumonia, cholecystitis). -Acute cholecystitis -Probable Aspiration pneumonia of right lung. -Urinary tract infection -urine culture from 04/19/2017 shows E. coli -Right lung pneumonia is a possible aspiration pneumonia. -Received Zosyn per ID recommendations. -Continue DuoNeb, Symbicort. - Left pleural effusion - s/p thoracentesis. 300mL were taken off. Appears to be transudative. - Left lower ext DVT -Doppler ultrasound 04/16/2017 shows left lower extremity DVT. During that time there was concern about upper GI bleed. -I believe patient would benefit from anticoagulation especially since patient is not very ambulatory. -Minimum 3 months, possibly indefinite anticoagulation would be recommended. -I discussed at length with patient and his . They understand the risk and benefit. -We continued patient on apixaban 2.5 mg twice daily. - Hypertension - Diastolic congestive heart failure - Continue Amlodipine 10mg Qday, hydralazine 25 mg p.o. twice daily, Lasix 20 mg p.o. twice daily -Hospice consulted. Hospice will have a family meeting tomorrow 05/01/2017. DNR. Heparin SQ. Patient was evaluated by hospice and after discussing with patient's family, family decided to go with hospice. Patient was evaluated by speech within last 2 -3 days and speech therapy recommended NPO due to high aspiration risk. Patient did not want to undergo PEG tube placement. After discussing extensively with patient and family, family requested hospice consultation and subsequently accepted hospice recommendations. Patient was subsequently discharged to [facility]. Pt Condition on Discharge: Guarded Discharge Disposition: Hospice/Med Facility Discharge Time: > 30 minutes Discharge Instructions DIET: Follow Instructions for: Nothing By Mouth Speech Therapy-Diet Recommends: Pureed, Manuel Garcia Ii Thickened Liquids Additional Diet Instructions: Pleasure eating would be okay if okay with Hospice team. Activities you can perform: Regular-No Restrictions Marina Henry DO May 01, 2017 11:57
[2017-05-01] MEDS ORDERED: MORPHINE SULFATE 4 MG/ML INJ IV PUSH ONE (12:30)
[2017-05-01] MEDS ORDERED: FUROSEMIDE 20 MG/2 ML VIAL IV PUSH SCH (18:00)
== END 2017-05-01 12:35 | disposition hospice, inpatient (51) | DRG 871 ==
LOC: N04A 15:27
PROVIDERS: ADMIT Hospitalist; ATTEND Hospitalist
PROC: 0W9B3ZX Drainage of Left Pleural Cavity, Percutaneous Approach, Diagnostic (ICD-10-PCS; principal; 2017-04-26)
DX: A41.9 Sepsis, unspecified organism (principal); J69.0 Pneumonitis due to inhalation of food and vomit; J90 Pleural effusion, not elsewhere classified; I82.402 Acute embolism and thrombosis of unspecified deep veins of left lower extremity; K80.00 Calculus of gallbladder with acute cholecystitis without obstruction; I50.32 Chronic diastolic (congestive) heart failure; E87.1 Hypo-osmolality and hyponatremia; N39.0 Urinary tract infection, site not specified; J98.11 Atelectasis; I11.0 Hypertensive heart disease with heart failure; E11.40 Type 2 diabetes mellitus with diabetic neuropathy, unspecified; G47.33 Obstructive sleep apnea (adult) (pediatric); J45.909 Unspecified asthma, uncomplicated; N40.0 Benign prostatic hyperplasia without lower urinary tract symptoms; K20.9 Esophagitis, unspecified; F17.290 Nicotine dependence, other tobacco product, uncomplicated; Z66 Do not resuscitate; G89.29 Other chronic pain; M54.9 Dorsalgia, unspecified; I25.10 Atherosclerotic heart disease of native coronary artery without angina pectoris; E78.5 Hyperlipidemia, unspecified; R09.02 Hypoxemia; R47.02 Dysphasia; B96.20 Unspecified Escherichia coli [E. coli] as the cause of diseases classified elsewhere; Z86.14 Personal history of Methicillin resistant Staphylococcus aureus infection; Z98.84 Bariatric surgery status; Z79.01 Long term (current) use of anticoagulants
CPT/HCPCS: 71045; 80048; 82948; 85025; 87040; 94640; 94664; J0692; J1200; J1644; J1815; J1940; J2060; J2270; J2543